=== PATIENT | female | born 1945 | race Caucasian/White ===

== ENCOUNTER 2017-05-02 10:50 | Day surgery (SDC) | payer MEDICARE ==
[2017-05-01 09:33] VITALS: BMI 26.9
[~2017-05-02 10:50] MED LIST: LACTATED RINGERS 1,000 ML IV SCH
[2017-05-02] MEDS ORDERED: LIDOCAINE 1% 20 ML VIAL (10MG/ML) FOR IV START INTRADERMA ONE (11:08)
[2017-05-02 11:09] VITALS: TEMP 98.6
[2017-05-02] MEDS ORDERED: PROPOFOL 10 MG/ML 20 ML VIAL IV ONE (11:15)
[2017-05-02] MEDS ORDERED: LIDOCAINE 1% INJ 10MG/ML (20 ML MDV) ONE (11:15)
--- NOTE | 2017-05-02 11:15 | P.GSHP ---
History of Present Illness H&P Date: 05/02/17 Chief Complaint: History of colon polyps This a 71-year-old female referred from Dr. Meghan Trimble. Patient rents today for colonoscopy. She's had a history of colon polyps. Past Medical History Past Medical History: GERD/Reflux, Hyperlipidemia, Hypertension, Seizure Disorder, Thyroid Disorder Additional Past Medical History / Comment(s): hx. colon polyps, >40 yrs. had seizures History of Any Multi-Drug Resistant Organisms: None Reported Past Surgical History: Cholecystectomy, Orthopedic Surgery Additional Past Surgical History / Comment(s): colonoscopy, hand surg. Past Anesthesia/Blood Transfusion Reactions: No Reported Reaction Smoking Status: Never smoker - Past Family History Mother Family Medical History: Cancer Medications and Allergies Home Medications Medication Instructions Recorded Confirmed Type Benazepril HCl 20 mg PO DAILY 02/24/14 05/02/17 History Cholecalciferol [Vitamin D3] 2,000 unit PO BID 02/24/14 05/02/17 History Cranberry Conc/C/Bacill Coag 1 each PO DAILY 02/24/14 05/02/17 History [Cranberry Tablet] Levothyroxine Sodium [Synthroid] 75 mcg PO DAILY 02/24/14 05/02/17 History PHENobarbital 60 mg PO HS 02/24/14 05/02/17 History Simvastatin [Zocor] 20 mg PO HS 02/24/14 05/02/17 History amLODIPine [Norvasc] 5 mg PO DAILY 02/24/14 05/02/17 History Famotidine [Pepcid] 20 mg PO BID #40 tablet 06/11/14 05/02/17 Rx Calcium Carbonate [Calcium] 600 mg PO BID 05/01/17 05/02/17 History Allergies Allergy/AdvReac Type Severity Reaction Status Date / Time acetaminophen Allergy Diarrhea Verified 05/02/17 11:04 [From Coricidin] amoxicillin [Amoxicillin] Allergy Unknown Verified 05/02/17 11:04 aspirin Allergy Unknown Verified 05/02/17 11:04 chlorpheniramine maleate Allergy Diarrhea Verified 05/02/17 11:04 [From Coricidin] codeine Allergy Unknown Verified 05/02/17 11:04 fexofenadine HCl Allergy Unknown Verified 05/02/17 11:04 [From Little] Hydantoins Allergy Unknown Verified 05/02/17 11:04 levofloxacin [From Levaquin] Allergy Unknown Verified 05/02/17 11:04 nitrofurantoin Allergy Rash/Hives Verified 05/02/17 11:04 [From Macrobid] phenylpropanolamine HCl Allergy Diarrhea Verified 05/02/17 11:04 [From Coricidin] phenytoin sodium Allergy Unknown Verified 05/02/17 11:04 [From Dilantin] prednisone Allergy Unknown Verified 05/02/17 11:04 propoxyphene HCl Allergy Unknown Verified 05/02/17 11:04 [From Darvon] sulfamethoxazole Allergy Rash/Hives Verified 05/02/17 11:04 [From Bactrim] trimethoprim Allergy Unknown Verified 05/02/17 11:04 narcotic Allergy Unknown Uncoded 05/02/17 11:04 Surgical - Exam Vital Signs Temp Pulse Resp BP Pulse Ox 98.6 F 79 16 195/71 99 05/02/17 11:08 05/02/17 11:08 05/02/17 11:08 05/02/17 11:08 05/02/17 11:08 - General well developed, no distress - Eyes PERRL - ENT normal pinna - Neck no masses - Respiratory normal expansion - Cardiovascular Rhythm: regular - Abdomen Abdomen: soft, non tender Assessment and Plan Assessment: History of colon polyps. We'll perform colonoscopy.
--- NOTE | 2017-05-02 11:30 | P.OP ---
Date of Procedure: 05/02/17 Preoperative Diagnosis: History of colon polyps Postoperative Diagnosis: Diverticulosis Internal hemorrhoids Procedure(s) Performed: Colonoscopy Anesthesia: MAC Surgeon: Gagandeep Blue Pathology: none sent Condition: stable Disposition: PACU Description of Procedure: Patient's placed on the endoscopy table lateral position. She received IV sedation. Digital rectal exam was performed which revealed a few external hemorrhage. The flexible colonoscope was then placed patient anus and passed throughout the entire colon. The ileocecal valve was visualized. Cecum, ascending and transverse colon appeared normal. In the descending; was mild diverticular changes. Scope was brought back the rectum and this appeared normal. There were no polyps seen in the entire colon. Scope was withdrawn for patient.
[2017-05-02 11:49] VITALS: BP 17/77; PULSE 55; RESP 15
== END 2017-05-02 12:05 | disposition home or self-care (01) ==
LOC: ORWHC2ENDO 10:50
PROVIDERS: ATTEND Surgery
DX: Z12.11 Encounter for screening for malignant neoplasm of colon (principal); K57.30 Diverticulosis of large intestine without perforation or abscess without bleeding; K64.4 Residual hemorrhoidal skin tags; Z86.010 Personal history of colon polyps; K21.9 Gastro-esophageal reflux disease without esophagitis; E78.5 Hyperlipidemia, unspecified; I10 Essential (primary) hypertension; G40.909 Epilepsy, unspecified, not intractable, without status epilepticus; E07.9 Disorder of thyroid, unspecified; Z79.899 Other long term (current) drug therapy; Z88.6 Allergy status to analgesic agent; Z88.1 Allergy status to other antibiotic agents; Z88.5 Allergy status to narcotic agent; Z88.0 Allergy status to penicillin; Z88.2 Allergy status to sulfonamides; Z88.8 Allergy status to other drugs, medicaments and biological substances
CPT/HCPCS: J2001; J2704; G0105

== ENCOUNTER 2017-11-19 16:22 | Inpatient (IN) | payer MEDICARE ==
[2017-11-19] MEDS ORDERED: SODIUM CHLORIDE 0.9% 500 ML IV ONE (16:49)
[2017-11-19 16:53] LABS: Basophils % (A) 1 %; Eosinophils # (A) 0.1 k/uL (0-0.7); Eosinophils % (A) 2 %; HCT 42.9 % (34.0-46.0); HGB 14.3 gm/dL (11.4-16.0); Lymphocytes # (A) 1.2 k/uL (1.0-4.8); Lymphocytes % (A) 27 %; MCH 31.1 pg (25.0-35.0); MCHC 33.4 g/dL (31.0-37.0); Mean Platelet Volume 7.1; Monocytes # (A) 0.4 k/uL (0-1.0); Monocytes % (A) 9 %; Neutrophils # (A) 2.6 k/uL (1.3-7.7); Neutrophils % (A) 57 %; Platelet Count 182 k/uL (150-450); RBC 4.61 m/uL (3.80-5.40); RDW 13.1 % (11.5-15.5); WBC 4.5 k/uL (3.8-10.6)
--- NOTE | 2017-11-19 16:54 | ED ---
General Adult HPI - General Chief complaint: Chest Pain Stated complaint: Chest Discomfort Time Seen by Provider: 11/19/17 16:24 Source: patient, EMS, RN notes reviewed, old records reviewed Mode of arrival: EMS Limitations: no limitations - History of Present Illness Initial comments: 72-year-old female presenting for evaluation of chest pain. Pain began at rest approximately 2-1/2 hours prior to arrival. She described it as right sided upper chest pain. It was dull aching sensation as if she had a previous stroke in her throat. She denied any food or medication ingestion. She also states she had a pain that went from her right chest into her right neck towards her ear. There was also dull and aching. No back pain. No radiating pain to her shoulders. She has past medical history of hypertension, no smoking history. No history of coronary artery disease or heart issues. Denies any preceding symptoms. No palpitations. No cough or fever. Patient is pain-free at the time my evaluation. No abdominal pain. - Related Data Home Medications Medication Instructions Recorded Confirmed Benazepril HCl 20 mg PO DAILY 02/24/14 11/19/17 Cholecalciferol [Vitamin D3] 2,000 unit PO BID 02/24/14 11/19/17 Cranberry Conc/C/Bacill Coag 1 tab PO TID 02/24/14 11/19/17 [Cranberry Tablet] Levothyroxine Sodium [Synthroid] 75 mcg PO DAILY 02/24/14 11/19/17 PHENobarbital 60 mg PO HS 02/24/14 11/19/17 Simvastatin [Zocor] 20 mg PO HS 02/24/14 11/19/17 amLODIPine [Norvasc] 5 mg PO DAILY 02/24/14 11/19/17 Calcium Carbonate [Calcium] 600 mg PO BID 05/01/17 11/19/17 Previous Rx's Medication Instructions Recorded Famotidine [Pepcid] 20 mg PO BID #40 tablet 06/11/14 Allergies Allergy/AdvReac Type Severity Reaction Status Date / Time acetaminophen Allergy Diarrhea Verified 11/19/17 16:46 [From Coricidin] amoxicillin [Amoxicillin] Allergy Unknown Verified 11/19/17 16:46 aspirin Allergy Unknown Verified 11/19/17 16:46 chlorpheniramine maleate Allergy Diarrhea Verified 11/19/17 16:46 [From Coricidin] codeine Allergy Unknown Verified 11/19/17 16:46 fexofenadine HCl Allergy Nausea & Verified 11/19/17 16:46 [From Little] Vomiting & Diarrhea Hydantoins Allergy Unknown Verified 11/19/17 16:46 levofloxacin [From Levaquin] Allergy Unknown Verified 11/19/17 16:46 nitrofurantoin Allergy Rash/Hives Verified 11/19/17 16:46 [From Macrobid] phenylpropanolamine HCl Allergy Diarrhea Verified 11/19/17 16:46 [From Coricidin] phenytoin sodium Allergy Rash/Hives Verified 11/19/17 16:46 [From Dilantin] prednisone Allergy Unknown Verified 11/19/17 16:46 propoxyphene HCl Allergy Unknown Verified 11/19/17 16:46 [From Darvon] sulfamethoxazole Allergy Rash/Hives Verified 11/19/17 16:46 [From Bactrim] trimethoprim Allergy Unknown Verified 11/19/17 16:46 narcotic Allergy Unknown Uncoded 11/19/17 16:31 Review of Systems ROS Statement: Those systems with pertinent positive or pertinent negative responses have been documented in the HPI. ROS Other: All systems not noted in ROS Statement are negative. Past Medical History Past Medical History: GERD/Reflux, Hyperlipidemia, Hypertension, Seizure Disorder, Thyroid Disorder Additional Past Medical History / Comment(s): hx. colon polyps, >40 yrs. had seizures History of Any Multi-Drug Resistant Organisms: None Reported Past Surgical History: Cholecystectomy, Orthopedic Surgery Additional Past Surgical History / Comment(s): colonoscopy, hand surg. Past Anesthesia/Blood Transfusion Reactions: No Reported Reaction Past Psychological History: Anxiety, Depression Smoking Status: Never smoker Past Alcohol Use History: None Reported Past Drug Use History: None Reported - Past Family History Mother Family Medical History: Cancer General Exam Limitations: no limitations General appearance: alert, in no apparent distress Head exam: Present: atraumatic, normocephalic Eye exam: Present: normal appearance, PERRL ENT exam: Present: normal exam Neck exam: Present: normal inspection. Absent: tenderness, meningismus Respiratory exam: Present: normal lung sounds bilaterally. Absent: respiratory distress, wheezes Cardiovascular Exam: Present: regular rate, normal rhythm GI/Abdominal exam: Present: soft. Absent: distended, tenderness Extremities exam: Present: normal inspection, full ROM, other (Bilateral radial pulses are 2+ and symmetric). Absent: pedal edema Back exam: Present: normal inspection. Absent: full ROM, tenderness Neurological exam: Present: alert, oriented X3, CN II-XII intact. Absent: motor sensory deficit Psychiatric exam: Present: normal affect, normal mood Skin exam: Present: warm, dry, intact. Absent: cyanosis, diaphoretic Course Vital Signs 11/19/17 11/19/17 11/19/17 16:27 17:08 17:44 Temperature 98.3 F Pulse Rate 64 61 67 Respiratory 18 18 18 Rate Blood Pressure 198/85 205/89 197/84 O2 Sat by Pulse 96 98 Oximetry 11/19/17 18:14 Temperature Pulse Rate Respiratory Rate Blood Pressure 180/77 O2 Sat by Pulse Oximetry EKG Findings - EKG Comments: EKG Findings:: EKG normal sinus rhythm, rate of 65, SD interval 180, QRS duration 80, QTc 440, no ST segment elevation or depression. Medical Decision Making - Medical Decision Making 72-year-old female presenting with chief complaint chest pain. Initial evaluation, patient is quite hypertensive, she did report radiation into her neck. CT angiography is obtained, this is negative for aneurysm or dissection. There is a adnexal lesion measuring 2.5 cm. This will require outpatient follow-up. CBC CMP are unremarkable. Troponin is negative. CT angiography does show calcification throughout the aortic branch vessels, normal occlusion. Patient will be kept in observation for serial cardiac enzymes and cardiology consultation. - Lab Data Result diagrams: 11/19/17 16:37 11/19/17 16:37 Lab Results 11/19/17 11/19/17 11/19/17 Range/Units 16:37 16:37 16:37 WBC 4.5 (3.8-10.6) k/uL RBC 4.61 (3.80-5.40) m/uL Hgb 14.3 (11.4-16.0) gm/dL Hct 42.9 (34.0-46.0) % MCV 93.0 (80.0-100.0) fL MCH 31.1 (25.0-35.0) pg MCHC 33.4 (31.0-37.0) g/dL RDW 13.1 (11.5-15.5) % Plt Count 182 (150-450) k/uL Neutrophils % 57 % Lymphocytes % 27 % Monocytes % 9 % Eosinophils % 2 % Basophils % 1 % Neutrophils # 2.6 (1.3-7.7) k/uL Lymphocytes # 1.2 (1.0-4.8) k/uL Monocytes # 0.4 (0-1.0) k/uL Eosinophils # 0.1 (0-0.7) k/uL Basophils # 0.0 (0-0.2) k/uL PT (9.0-12.0) sec INR (<1.2) APTT (22.0-30.0) sec Sodium 141 (137-145) mmol/L Potassium 4.4 (3.5-5.1) mmol/L Chloride 100 (98-107) mmol/L Carbon Dioxide 26 (22-30) mmol/L Anion Gap 15 mmol/L BUN 21 H (7-17) mg/dL Creatinine 0.70 (0.52-1.04) mg/dL Est GFR (CKD-EPI)AfAm >90 (>60 ml/min/1.73 sqM) Est GFR (CKD-EPI)NonAf 87 (>60 ml/min/1.73 sqM) Glucose 94 (74-99) mg/dL Calcium 9.4 (8.4-10.2) mg/dL Magnesium 1.8 (1.6-2.3) mg/dL Total Bilirubin 0.3 (0.2-1.3) mg/dL AST 24 (14-36) U/L ALT 31 (9-52) U/L Alkaline Phosphatase 98 (38-126) U/L Total Creatine Kinase 38 (30-135) U/L CK-MB (CK-2) 0.4 (0.0-2.4) ng/mL CK-MB (CK-2) Rel Index 1.1 Troponin I <0.012 (0.000-0.034) ng/mL NT-Pro-B Natriuret Pep pg/mL Total Protein 7.6 (6.3-8.2) g/dL Albumin 4.5 (3.5-5.0) g/dL 11/19/17 11/19/17 Range/Units 16:37 16:37 WBC (3.8-10.6) k/uL RBC (3.80-5.40) m/uL Hgb (11.4-16.0) gm/dL Hct (34.0-46.0) % MCV (80.0-100.0) fL MCH (25.0-35.0) pg MCHC (31.0-37.0) g/dL RDW (11.5-15.5) % Plt Count (150-450) k/uL Neutrophils % % Lymphocytes % % Monocytes % % Eosinophils % % Basophils % % Neutrophils # (1.3-7.7) k/uL Lymphocytes # (1.0-4.8) k/uL Monocytes # (0-1.0) k/uL Eosinophils # (0-0.7) k/uL Basophils # (0-0.2) k/uL PT 10.0 (9.0-12.0) sec INR 1.0 (<1.2) APTT 21.9 L (22.0-30.0) sec Sodium (137-145) mmol/L Potassium (3.5-5.1) mmol/L Chloride (98-107) mmol/L Carbon Dioxide (22-30) mmol/L Anion Gap mmol/L BUN (7-17) mg/dL Creatinine (0.52-1.04) mg/dL Est GFR (CKD-EPI)AfAm (>60 ml/min/1.73 sqM) Est GFR (CKD-EPI)NonAf (>60 ml/min/1.73 sqM) Glucose (74-99) mg/dL Calcium (8.4-10.2) mg/dL Magnesium (1.6-2.3) mg/dL Total Bilirubin (0.2-1.3) mg/dL AST (14-36) U/L ALT (9-52) U/L Alkaline Phosphatase (38-126) U/L Total Creatine Kinase (30-135) U/L CK-MB (CK-2) (0.0-2.4) ng/mL CK-MB (CK-2) Rel Index Troponin I (0.000-0.034) ng/mL NT-Pro-B Natriuret Pep 409 pg/mL Total Protein (6.3-8.2) g/dL Albumin (3.5-5.0) g/dL Disposition Clinical Impression: Chest pain Disposition: ADMITTED IP TO THIS HOSP Condition: Stable Is patient prescribed a controlled substance at d/c from ED?: No Referrals: Nish Trimble MD [Primary Care Provider] - 1-2 days Decision to Admit Reason: Admit from EC Decision Date: 11/19/17 Decision Time: 18:32
[2017-11-19 16:58] LABS: ALT 31 U/L (9-52); AST 24 U/L (14-36); Albumin 4.5 g/dL (3.5-5.0); Alkaline Phosphatase 98 U/L (38-126); Anion Gap 15 mmol/L; Blood Urea Nitrogen 21 mg/dL (7-17); Calcium 9.4 mg/dL (8.4-10.2); Carbon Dioxide 26 mmol/L (22-30); Chloride 100 mmol/L (98-107); Glucose 94 mg/dL (74-99); Magnesium 1.8 mg/dL (1.6-2.3); Potassium 4.4 mmol/L (3.5-5.1); Sodium 141 mmol/L (137-145); Total Bilirubin 0.3 mg/dL (0.2-1.3); Total Protein 7.6 g/dL (6.3-8.2)
--- NOTE | 2017-11-19 17:03 | XR ---
EXAMINATION TYPE: XR chest 2V DATE OF EXAM: 11/19/2017 COMPARISON: 06/11/2014 HISTORY: Chest pain. Dysphagia. Globus sensation. TECHNIQUE: Frontal and lateral views of the chest are obtained. FINDINGS: There is no focal air space opacity, pleural effusion, or pneumothorax seen. The cardiac silhouette size is within normal limits. The osseous structures are intact. Mild multilevel degener ative changes of the thoracic spine are seen. There are mild mid thoracic compression deformity is id entified that is asymmetric indeterminant. Correlate with point tenderness. IMPRESSION: 1. No acute cardiopulmonary process. No radiopaque foreign body visualized. 2. Midthoracic age indeterminant very mild compression deformity. No prior lateral image for comparis on. Correlate with point tenderness.
[2017-11-19 17:09] LABS: Creatine Kinase 38 U/L (30-135)
[2017-11-19 17:11] LABS: Partial Thromboplastin Time 21.9 sec (22.0-30.0)
[2017-11-19] MEDS ORDERED: hydrALAZINE HCL 20 MG/ML 1 ML VIAL IVP STA ×2 (17:15→18:50)
[2017-11-19 17:22] LABS: Creatine Kinase MB 0.4 ng/mL (0.0-2.4); Troponin I <0.012 ng/mL (0.000-0.034)
--- NOTE | 2017-11-19 18:02 | CT ---
EXAMINATION TYPE: CT angio thoracic/abd aorta DATE OF EXAM: 11/19/2017 COMPARISON: NONE HISTORY: Right sided chest pain with nausea CT DLP: 1002.2 mGycm. Automated Exposure Control for Dose Reduction was Utilized. CONTRAST: CT scan of the thorax, abdomen and pelvis is performed with IV Contrast, patient injected with 100 mL of Isovue 370. 3-D reformats were performed of the vasculature on a separate workstation. FINDINGS: LUNGS: The lungs are grossly clear, there is no concerning parenchymal mass or nodule identified. Min imal bibasilar subsegmental dependent atelectasis is seen. There is no pleural effusion or pneumotho rax seen. The tracheobronchial tree is patent. MEDIASTINUM: On the unenhanced images there is no evidence of intramural hematoma. There are no great er than 1 cm hilar or mediastinal lymph nodes. No evidence of thoracic dissection or central pulmona ry embolus is seen. No thoracic aortic aneurysm. Conventional 3 vessel branch pattern of the aortic a rch is noted. No pericardial effusion is seen. OTHER: No additional significant abnormality is seen. LIVER/GB: No significant abnormality is appreciated. PANCREAS: Diffuse pancreatic atrophy is present. No ductal dilatation.. SPLEEN: No significant abnormality is seen. ADRENALS: No significant abnormality is seen. KIDNEYS: No hydronephrosis. Kidneys enhance symmetrically. BOWEL: There is a small hiatal hernia present. Numerous sigmoid diverticula are present without peric olonic fat stranding. GENITAL ORGANS: 3.5 cm right adnexal lesion is noted. Smaller 1.2 cm left adnexal lesion is seen. Danita omkar is atrophied. LYMPH NODES: No greater than 1cm abdominal or pelvic lymph nodes are appreciated. OSSEOUS STRUCTURES: Multilevel degenerative changes of the spine are moderate. OTHER: Extensive calcific atheromatous changes are seen of the abdominal aorta and its branches. Ther e is ostial stenosis of the celiac and SMA branches without poststenotic dilatation. Visualized branc h vessels appear grossly patent. Abdominal aorta is of normal course and caliber. IMPRESSION: 1. No evidence of dissection or aneurysm of the thoracic or abdominal aorta. 2. 3.5 cm right cystic adnexal lesion, abnormal in a postmenopausal female. Further evaluation with n onemergent ultrasound is recommended for further classification. 3. 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
[2017-11-19] MEDS ORDERED: NALOXONE 0.4 MG/ML 1 ML VIAL IV PRN (18:33)
[2017-11-19] MEDS ORDERED: ONDANSETRON 4 MG/2 ML VIAL IVP PRN (18:33)
[2017-11-19] MEDS ORDERED: amLODIPine 5 MG TAB PO STA (18:51)
[2017-11-19] MEDS: ATORVASTATIN 10 MG TAB PO SCH (21:36)
[2017-11-19] MEDS: FAMOTIDINE 20 MG TAB PO SCH (21:36)
[2017-11-19] MEDS: ACETAMINOPHEN TAB 325 MG TAB PO PRN (21:36)
[2017-11-19] MEDS: PHENobarbital 64.8 MG TAB PO SCH (22:48)
[2017-11-19] MEDS ORDERED: CALCIUM CARBONATE 500 MG CHEWABLE PO PRN (22:50)
[2017-11-19 23:04] LABS: Creatine Kinase MB 0.5 ng/mL (0.0-2.4); Troponin I 0.032 ng/mL (0.000-0.034)
[2017-11-20 05:15] LABS: Creatine Kinase MB 0.5 ng/mL (0.0-2.4); Troponin I 0.02 ng/mL (0.000-0.034)
--- NOTE | 2017-11-20 08:23 | P.HPIM ---
History of Present Illness H&P Date: 11/20/17 Chief Complaint: Chest pain This is a history of physical 72-year-old white female who is complaining of significant right-sided chest pressure. She states yesterday she was recently broke without doing anything overtly strenuous had significant right-sided chest pain. No nausea no diaphoresis. No significant radiation of the pain was quite intense. Did not resolve with almost an hour. She ended up seeing the nurse advisor at her living quarters and she advised appropriate evaluation. She is now here for appropriate chest pressure. Minimal risk factors stated. The patient is nonsmoker. Review of Systems Constitutional: Denies chills, Denies fever Eyes: denies blurred vision, denies pain Ears, nose, mouth and throat: Denies headache, Denies sore throat Cardiovascular: Reports chest pain, Denies leg edema, Denies lightheadedness, Denies shortness of breath Respiratory: Denies cough Gastrointestinal: Denies abdominal pain, Denies diarrhea, Denies nausea, Denies vomiting Genitourinary: Denies dysuria, Denies hematuria Past Medical History Past Medical History: GERD/Reflux, Hyperlipidemia, Hypertension, Seizure Disorder, Thyroid Disorder Additional Past Medical History / Comment(s): hx. colon polyps, >40 yrs. had seizures History of Any Multi-Drug Resistant Organisms: None Reported Past Surgical History: Cholecystectomy, Orthopedic Surgery Additional Past Surgical History / Comment(s): colonoscopy, hand surg. Past Anesthesia/Blood Transfusion Reactions: No Reported Reaction Past Psychological History: Anxiety, Depression Smoking Status: Never smoker Past Alcohol Use History: None Reported Past Drug Use History: None Reported - Past Family History Mother Family Medical History: Cancer Father History Unknown: Yes Sister(s) Family Medical History: Cancer Brother(s) History Unknown: Yes Son(s) Family Medical History: No Reported History Daughter(s) Additional Family Medical History / Comment(s): went without oxygen at Medications and Allergies Home Medications Medication Instructions Recorded Confirmed Type Benazepril HCl 20 mg PO DAILY 02/24/14 11/19/17 History Cholecalciferol [Vitamin D3] 2,000 unit PO BID 02/24/14 11/19/17 History Cranberry Conc/C/Bacill Coag 2 tab PO TID 02/24/14 11/19/17 History [Cranberry Tablet] Levothyroxine Sodium [Synthroid] 75 mcg PO DAILY 02/24/14 11/19/17 History PHENobarbital 60 mg PO HS 02/24/14 11/19/17 History Simvastatin [Zocor] 20 mg PO HS 02/24/14 11/19/17 History amLODIPine [Norvasc] 5 mg PO DAILY 02/24/14 11/19/17 History Famotidine [Pepcid] 20 mg PO BID #40 tablet 06/11/14 11/19/17 Rx Calcium Carbonate [Calcium] 600 mg PO BID 05/01/17 11/19/17 History Allergies Allergy/AdvReac Type Severity Reaction Status Date / Time acetaminophen Allergy Diarrhea Verified 11/19/17 21:11 [From Coricidin] amoxicillin [Amoxicillin] Allergy Unknown Verified 11/19/17 21:11 aspirin Allergy Unknown Verified 11/19/17 21:11 chlorpheniramine maleate Allergy Diarrhea Verified 11/19/17 21:11 [From Coricidin] codeine Allergy Unknown Verified 11/19/17 21:11 fexofenadine HCl Allergy Nausea & Verified 11/19/17 21:11 [From Little] Vomiting & Diarrhea Hydantoins Allergy Unknown Verified 11/19/17 21:11 levofloxacin [From Levaquin] Allergy Unknown Verified 11/19/17 21:11 nitrofurantoin Allergy Rash/Hives Verified 11/19/17 21:11 [From Macrobid] phenylpropanolamine HCl Allergy Diarrhea Verified 11/19/17 21:11 [From Coricidin] phenytoin sodium Allergy Rash/Hives Verified 11/19/17 21:11 [From Dilantin] prednisone Allergy Unknown Verified 11/19/17 21:11 propoxyphene HCl Allergy Unknown Verified 11/19/17 21:11 [From Darvon] sulfamethoxazole Allergy Rash/Hives Verified 11/19/17 21:11 [From Bactrim] trimethoprim Allergy Unknown Verified 11/19/17 21:11 narcotic Allergy Unknown Uncoded 11/19/17 21:11 Physical Exam Vitals: Vital Signs Temp Pulse Pulse Resp BP BP Pulse Ox 11/20/17 07:25 98.3 F 71 17 146/65 95 11/20/17 04:00 97.9 F 68 16 137/63 96 11/20/17 03:55 18 11/19/17 23:44 97.8 F 76 18 148/56 97 11/19/17 23:10 16 11/19/17 20:10 98.5 F 76 16 157/72 100 11/19/17 20:00 16 11/19/17 19:39 79 17 145/65 100 11/19/17 18:59 71 18 198/84 99 11/19/17 18:55 69 18 194/79 98 11/19/17 18:14 180/77 11/19/17 17:44 67 18 197/84 98 11/19/17 17:08 61 18 205/89 11/19/17 16:27 98.3 F 64 18 198/85 96 Intake and Output 11/19/17 11/20/17 11/20/17 22:59 06:59 14:59 Other: Voiding Method Toilet Toilet # Voids 1 Weight 71.5 kg - Constitutional General appearance: no acute distress - EENT Eyes: EOMI - Neck Neck: no lymphadenopathy - Respiratory Respiratory: bilateral: CTA - Cardiovascular Rhythm: regular Heart sounds: normal: S1, S2 Abnormal Heart Sounds: no S3 Gallop - Gastrointestinal General gastrointestinal: soft, no tenderness - Psychiatric Psychiatric: A&O x's 3 Results CBC & Chem 7: 11/19/17 16:37 11/19/17 16:37 Labs: Abnormal Lab Results - Last 24 Hours (Table) 11/19/17 11/19/17 Range/Units 16:37 16:37 APTT 21.9 L (22.0-30.0) sec BUN 21 H (7-17) mg/dL Thrombosis Risk Factor Assmnt - Choose All That Apply Any of the Below Risk Factors Present?: Yes Each Factor Represents 1 point: Obesity (BMI >25) Other Risk Factors: Yes Each Risk Factor Represents 2 Points: Age 61-74 years Other congenital or acquired thrombophilia - If yes, enter type in comment: No Thrombosis Risk Factor Assessment Total Risk Factor Score: 3 Thrombosis Risk Factor Assessment Level: Moderate Risk Assessment and Plan (1) Chest pain Current Visit: Yes Status: Acute Code(s): R07.9 - CHEST PAIN, UNSPECIFIED SNOMED Code(s): 48207030 Plan: Rule out myocardial infarction. Element of stress testing to be entertained. Reconcile home medications. See orders otherwise. Anticipate discharge in next 24 hours if testing is stable. Time with Patient: Greater than 30
[2017-11-20] MEDS ORDERED: amLODIPine 5 MG TAB PO SCH (09:00)
[2017-11-20] MEDS ORDERED: AMINOPHYLLINE 500 MG/20 ML VIAL IV PRN (09:01)
[2017-11-20] MEDS ORDERED: REGADENOSON 0.4 MG/5 ML SYRINGE IV ONE (09:01)
--- NOTE | 2017-11-20 09:44 | ECHOF ---
Referral Reason: MEASUREMENTS -------- HEIGHT: 160.0 cm WEIGHT: 71.2 kg BP: IVSd: 0.8 cm (0.6 - 1.1) LVIDd: 4.3 cm (3.9 - 5.3) LVPWd: 1.0 cm (0.6 - 1.1) IVSs: 1.7 cm LVIDs: 1.8 cm LVPWs: 1.6 cm LAESV Index (A-L): 26.88 ml/m Ao Diam: 2.5 cm (2.0 - 3.7) AV Cusp: 1.9 cm (1.5 - 2.6) LA Diam: 3.8 cm (2.7 - 3.8) MV EXCURSION: 8.460 mm (> 18.000) MV EF SLOPE: 71 mm/s (70 - 150) EPSS: 0.8 cm MV E Daniel: 0.76 m/s MV DecT: 244 ms MV A Daniel: 0.71 m/s MV E/A Ratio: 1.07 RAP: 5.00 mmHg RVSP: 31.53 mmHg FINDINGS -------- Sinus rhythm. This was a technically good study. The left ventricular size is normal. Left ventricular wall thickness is normal. Overall left vent ricular systolic function is normal with, an EF between 55 - 60 %. The right ventricle is normal in size and function. The left atrium is normal in size. The right atrium is normal in size. The aortic valve is trileaflet, and appears structurally normal. No aortic stenosis or regurgitation. Mild mitral regurgitation is present. Mild tricuspid regurgitation present. The right ventricular systolic pressure, as measured by Doppl er, is 31.53mmHg. Pulmonic valve appears structurally normal. The aortic root size is normal. Normal inferior vena cava with normal inspiratory collapse consistent with estimated right atrial pre ssure of 5 mmHg. There is a trivial pericardial effusion present. CONCLUSIONS -------- 1. Sinus rhythm. 2. This was a technically good study. 3. The left ventricular size is normal. 4. Left ventricular wall thickness is normal. 5. Overall left ventricular systolic function is normal with, an EF between 55 - 60 %. 6. The right ventricle is normal in size and function. 7. The left atrium is normal in size. 8. The right atrium is normal in size. 9. The aortic valve is trileaflet, and appears structurally normal. No aortic stenosis or regurgitati on. 10. Mild mitral regurgitation is present. 11. Mild tricuspid regurgitation present. 12. The right ventricular systolic pressure, as measured by Doppler, is 31.53mmHg. 13. Pulmonic valve appears structurally normal. 14. The aortic root size is normal. 15. Normal inferior vena cava with normal inspiratory collapse consistent with estimated right atrial pressure of 5 mmHg. 16. There is a trivial pericardial effusion present. CONTROL ELECTRICIAN: Marion Gary RDCS
--- NOTE | 2017-11-20 11:52 | P.CRDCN ---
History of Present Illness History of present illness: This is a pleasant 72-year-old female past medical history significant for hypertension, dyslipidemia, hypothyroidism, gastroesophageal reflux disease and history of seizures. She denies history of coronary artery disease. We have been asked to see her in consultation for complaints of chest pain. She states yesterday while she was sitting down reading a book she developed a heavy sensation in the right anterior chest wall radiating up into the right neck and right ear. Her right arm also felt numb and tingly. The symptoms persisted for approximately 2-1/2 hours prior to coming to the hospital. When she got to the hospital she was continuing to have a dull ache in the chest and it felt associated swallowed a pill that would not echo down she had a sensation of throat fullness. Ultimately the pain subsided on its own with no specific alleviating or aggravating factors. She denies associated shortness of breath, palpitations, dizziness, nausea, vomiting or diaphoresis. She has had no further recurrences of chest pain since admission. Blood pressure on arrival 198/85, 205/89. She was given home medications and IV hydralazine. EKG reveals sinus mechanism with no acute ST or T-wave abnormalities. Telemetry tracings have been unremarkable. Chest x-ray is negative for an acute cardiopulmonary process with a midthoracic compression deformity noted. CT of thorax negative for any acute process. Laboratory data reviewed, hemoglobin 14.3, platelets 182, sodium 141, potassium 4.4, creatinine 0.7, cardiac enzymes negative 3, proBNP 409. Current cardiac medications include amlodipine 5 mg daily, simvastatin 20 mg daily, enalapril 20 mg daily. Review of Systems At the time of my exam: CONSTITUTIONAL: Denies fever. Denies chills. EYES: Denies blurred vision. Denies vision changes. Denies eye pain. EARS, NOSE, MOUTH & THROAT: Denies headache. Denies sore throat. Denies ear pain. CARDIOVASCULAR: Denies chest pain. Denies shortness of breath. Denies orthopnea. Denies PND. Denies palpitations. RESPIRATORY: Denies cough. GASTROINTESTINAL: Denies abdominal pain. Denies diarrhea. Denies constipation. Denies nausea. Denies vomiting. MUSCULOSKELETAL: Denies myalgias. INTEGUMENTARY: Denies pruitis. Denies rash. NEUROLOGIC: Denies numbness. Denies tingling. Denies weakness. PSYCHIATRIC: Denies anxiety. Denies depression. ENDOCRINE: Denies fatigue. Denies weight change. Denies polydipsia. Denies polyurina. GENITOURINARY: Denies burning, hematuria or urgency with micturation. HEMATOLOGIC: Denies history of anemia. Denies bleeding. Past Medical History Past Medical History: GERD/Reflux, Hyperlipidemia, Hypertension, Seizure Disorder, Thyroid Disorder Additional Past Medical History / Comment(s): hx. colon polyps, >40 yrs. had seizures History of Any Multi-Drug Resistant Organisms: None Reported Past Surgical History: Cholecystectomy, Orthopedic Surgery Additional Past Surgical History / Comment(s): colonoscopy, hand surg. Past Anesthesia/Blood Transfusion Reactions: No Reported Reaction Past Psychological History: Anxiety, Depression Smoking Status: Never smoker Past Alcohol Use History: None Reported Past Drug Use History: None Reported - Past Family History Mother Family Medical History: Cancer Father History Unknown: Yes Sister(s) Family Medical History: Cancer Brother(s) History Unknown: Yes Son(s) Family Medical History: No Reported History Daughter(s) Additional Family Medical History / Comment(s): went without oxygen at Medications and Allergies Home Medications Medication Instructions Recorded Confirmed Type Benazepril HCl 20 mg PO DAILY 02/24/14 11/19/17 History Cholecalciferol [Vitamin D3] 2,000 unit PO BID 02/24/14 11/19/17 History Cranberry Conc/C/Bacill Coag 2 tab PO TID 02/24/14 11/19/17 History [Cranberry Tablet] Levothyroxine Sodium [Synthroid] 75 mcg PO DAILY 02/24/14 11/19/17 History PHENobarbital 60 mg PO HS 02/24/14 11/19/17 History Simvastatin [Zocor] 20 mg PO HS 02/24/14 11/19/17 History amLODIPine [Norvasc] 5 mg PO DAILY 02/24/14 11/19/17 History Famotidine [Pepcid] 20 mg PO BID #40 tablet 06/11/14 11/19/17 Rx Calcium Carbonate [Calcium] 600 mg PO BID 05/01/17 11/19/17 History Allergies Allergy/AdvReac Type Severity Reaction Status Date / Time acetaminophen Allergy Diarrhea Verified 11/19/17 21:11 [From Coricidin] amoxicillin [Amoxicillin] Allergy Unknown Verified 11/19/17 21:11 aspirin Allergy Unknown Verified 11/19/17 21:11 chlorpheniramine maleate Allergy Diarrhea Verified 11/19/17 21:11 [From Coricidin] codeine Allergy Unknown Verified 11/19/17 21:11 fexofenadine HCl Allergy Nausea & Verified 11/19/17 21:11 [From Little] Vomiting & Diarrhea Hydantoins Allergy Unknown Verified 11/19/17 21:11 levofloxacin [From Levaquin] Allergy Unknown Verified 11/19/17 21:11 nitrofurantoin Allergy Rash/Hives Verified 11/19/17 21:11 [From Macrobid] phenylpropanolamine HCl Allergy Diarrhea Verified 11/19/17 21:11 [From Coricidin] phenytoin sodium Allergy Rash/Hives Verified 11/19/17 21:11 [From Dilantin] prednisone Allergy Unknown Verified 11/19/17 21:11 propoxyphene HCl Allergy Unknown Verified 11/19/17 21:11 [From Darvon] sulfamethoxazole Allergy Rash/Hives Verified 11/19/17 21:11 [From Bactrim] trimethoprim Allergy Unknown Verified 11/19/17 21:11 narcotic Allergy Unknown Uncoded 11/19/17 21:11 Physical Exam Vitals: Vital Signs Temp Pulse Pulse Resp BP BP Pulse Ox 11/20/17 07:25 98.3 F 71 17 146/65 95 11/20/17 04:00 97.9 F 68 16 137/63 96 11/20/17 03:55 18 11/19/17 23:44 97.8 F 76 18 148/56 97 11/19/17 23:10 16 11/19/17 20:10 98.5 F 76 16 157/72 100 11/19/17 20:00 16 11/19/17 19:39 79 17 145/65 100 11/19/17 18:59 71 18 198/84 99 11/19/17 18:55 69 18 194/79 98 11/19/17 18:14 180/77 11/19/17 17:44 67 18 197/84 98 11/19/17 17:08 61 18 205/89 11/19/17 16:27 98.3 F 64 18 198/85 96 Intake and Output 11/19/17 11/20/17 11/20/17 22:59 06:59 14:59 Other: Voiding Method Toilet Toilet # Voids 1 Weight 71.5 kg Blood pressure 137/63 heart rate 68 afebrile maintaining oxygen saturation on room air GENERAL: This is a 72-year-old female in no apparent distress at the time of my examination. HEENT: Head is atraumatic, normocephalic. Pupils are equal, round. Sclerae anicteric. Conjunctivae are clear. Mucous membranes of the mouth are moist. Neck is supple. There is no jugular venous distention. No carotid bruit is heard. LUNGS: Clear to auscultation no wheezes, rales or rhonchi. No chest wall tenderness is noted on palpation or with deep breathing. HEART: Regular rate and rhythm with faint systolic murmur at the base, no rubs or gallops. S1 and S2 heard. ABDOMEN: Soft, nontender. Bowel sounds are heard. No organomegaly noted. EXTREMITIES: No evidence of peripheral edema and no calf tenderness noted. VASCULAR: Radial and dorsalis pedis pulses palpated, no evidence of clubbing. NEUROLOGIC: Patient is awake, alert and oriented x3. Results 11/19/17 16:37 11/19/17 16:37 Cardiac Enzymes 11/19/17 11/19/17 11/19/17 Range/Units 16:37 16:37 22:21 AST 24 (14-36) U/L CK-MB (CK-2) 0.4 0.5 (0.0-2.4) ng/mL Troponin I <0.012 0.032 (0.000-0.034) ng/mL 11/20/17 Range/Units 04:33 AST (14-36) U/L CK-MB (CK-2) 0.5 (0.0-2.4) ng/mL Troponin I 0.020 (0.000-0.034) ng/mL Coagulation 11/19/17 Range/Units 16:37 PT 10.0 (9.0-12.0) sec APTT 21.9 L (22.0-30.0) sec CBC 11/19/17 Range/Units 16:37 WBC 4.5 (3.8-10.6) k/uL RBC 4.61 (3.80-5.40) m/uL Hgb 14.3 (11.4-16.0) gm/dL Hct 42.9 (34.0-46.0) % Plt Count 182 (150-450) k/uL Comprehensive Metabolic Panel 11/19/17 Range/Units 16:37 Sodium 141 (137-145) mmol/L Potassium 4.4 (3.5-5.1) mmol/L Chloride 100 (98-107) mmol/L Carbon Dioxide 26 (22-30) mmol/L BUN 21 H (7-17) mg/dL Creatinine 0.70 (0.52-1.04) mg/dL Glucose 94 (74-99) mg/dL Calcium 9.4 (8.4-10.2) mg/dL AST 24 (14-36) U/L ALT 31 (9-52) U/L Alkaline Phosphatase 98 (38-126) U/L Total Protein 7.6 (6.3-8.2) g/dL Albumin 4.5 (3.5-5.0) g/dL Current Medications Generic Name Dose Route Start Last Admin Trade Name Freq PRN Reason Stop Dose Admin Acetaminophen 650 mg 11/19/17 21:08 11/19/17 21:36 Tylenol Tab PO 650 mg Q4HR PRN Administration Fever and/ or Pain Amlodipine Besylate 10 mg 11/20/17 09:00 Norvasc PO DAILY [facility] Atorvastatin Calcium 10 mg 11/19/17 21:00 11/19/17 21:36 Lipitor PO Not Given HS [facility] Calcium Carbonate/Glycine 1,000 mg 11/19/17 22:50 11/19/17 23:24 Tums PO 1,000 mg QID PRN Administration Heartburn Famotidine 20 mg 11/19/17 21:00 11/19/17 21:36 Pepcid PO 20 mg BID [facility] Administration Levothyroxine Sodium 75 mcg 11/20/17 06:30 Synthroid PO DAILY@0630 [facility] Lisinopril 20 mg 11/20/17 09:00 Zestril PO DAILY [facility] Naloxone HCl 0.2 mg 11/19/17 18:33 Narcan IV Q2M PRN Opioid Reversal Ondansetron HCl 4 mg 11/19/17 18:33 Zofran IVP Q8HR PRN Nausea And Vomiting Phenobarbital 64.8 mg 11/19/17 21:00 11/19/17 22:48 Luminal PO 64.8 mg HS YONNY Administration Intake and Output 11/19/17 11/20/17 11/20/17 22:59 06:59 14:59 Other: Voiding Method Toilet Toilet # Voids 1 Weight 71.5 kg 11/19/17 16:37 11/19/17 16:37 Assessment and Plan Assessment: ASSESSMENT 1. Chest pain, atypical. An acute coronary event has been ruled out with no EKG evidence of ischemia and normal cardiac enzymes. 2. Hypertensive urgency 3. Dyslipidemia 4. Family history of premature cardiac PLAN Obtain 2-D echocardiogram and Doppler study to assess cardiac structure and function. Increase amlodipine to 10 mg daily. Perform Lexiscan stress test to assess for stress-induced reversible cardiac ischemia. Further recommendations to follow based upon clinical course. Thank you kindly for this consultation. Nurse Practitioner note has been reviewed, I agree with a documented findings and plan of care. Patient was seen and examined.
--- NOTE | 2017-11-20 11:54 | NM ---
EXAMINATION TYPE: NM stress lexiscan cardiolite DATE OF EXAM: 11/20/2017 COMPARISON: NONE HISTORY: Chest pain TECHNIQUE: After the intravenous administration of 9.96 mCi Tc 99m Sestamibi - Cardiolite resting SP ECT images acquired 45 minutes post injection. The patient received 0.4mg Lexiscan, 23.8 mCi Tc 99m Sestamibi - Stress images obtained [address] injection FINDINGS: There may be some very subtle diminished radiotracer along the anterior wall on the stress images whi ch is not apparent on the resting images. No large perfusion defects are evident on the stress images . Findings are not confirmed on the polar maps. Finding is more likely related to breast artifact There is mild dyskinesia of the cardiac apex. Wall motion otherwise appears unremarkable. Ejection fr action of 73% is normal. IMPRESSION: 1. No definite stress-induced perfusion defect. 2. Dyskinesia at the cardiac apex. 3. Normal ejection fraction
--- NOTE | 2017-11-20 12:02 | P.STRESS ---
- Stress Test Note Stress Test Results/Findings: Exam Performed: NM stress lexiscan cardiolite Exam Date: 11/20/17 Reason for Exam: CHEST PAIN Height: 5 ft 3 in Weight: 71.214 kg Protocol: JONY Stage: NA Duration of Exercise: NA Resting Heart Rate: 74 Resting Blood Pressure: 177/66 Maximum Achieved Heart Rate: 98 Maximum Achieved Blood Pressure: 188/48 85% PMHR: 127 100% PMHR: 149 METS: NA Technologist Comment: Stress Test Results/Findings: This is a 72-year-old female with history of hypertension, hypercholesterolemia and family history being evaluated for symptoms of chest pain. Stress data: Baseline EKG showed sinus rhythm with normal [place] interval and QRS duration. A standard dose of Lexiscan was infused. EKGs taken during and after infusion did not reveal any changes to suggest ischemia. Report on the new plan. Images to be given by the radiologist. Final impression: #1. Negative Lexiscan stress test #2. Report on the nuclear images to be given by the radiologist
[2017-11-20] MEDS: LEVOTHYROXINE 75 MCG TAB PO SCH (12:05)
[2017-11-20] MEDS: LISINOPRIL 20 MG TAB PO SCH (12:07)
[2017-11-20] MEDS: FAMOTIDINE 20 MG TAB PO SCH ×2 (12:12→19:49)
[2017-11-20] MEDS ORDERED: ALPRAZolam 0.5 MG TAB PO PRN (12:15)
[2017-11-20] MEDS ORDERED: NITROGLYCERIN SL TABS 0.4 MG TAB SUBLINGUAL PRN (12:15)
[2017-11-20] MEDS ORDERED: SODIUM CHLORIDE 0.9% 1,000 ML in EMPTY BAG 1 BAG IV ONE (12:15)
[2017-11-20] MEDS ORDERED: ALPRAZolam 0.25 MG TAB PO PRN (12:15)
--- NOTE | 2017-11-20 12:43 | P.PN ---
Progress Note - Text Lexiscan stress test reviewed. Films reviewed and we recommend proceeding with cardiac catheterization to further assess for coronary artery disease. I have discussed the risks, benefits and alternative therapies for the above-mentioned procedure and for both sedation/analgesia as well as necessary blood product administration, if indicated, as they pertain to this patient. The patient has indicated understanding and acceptance of the risks and procedures discussed. Questions have been answered appropriately to the patient and her daughter. She is agreeable to move forward with above stated procedure. She will be NPO after midnight tonight for procedure in the morning. Case has been boarded for 0800.
[2017-11-20] MEDS: amLODIPine 10 MG TAB PO SCH (13:10)
[2017-11-20] MEDS: ATORVASTATIN 10 MG TAB PO SCH (19:47)
[2017-11-20 19:50] VITALS: RESP 16
[2017-11-20] MEDS: ACETAMINOPHEN TAB 325 MG TAB PO PRN (22:02)
[2017-11-20] MEDS: PHENobarbital 64.8 MG TAB PO SCH (22:02)
[2017-11-21] MEDS: LEVOTHYROXINE 75 MCG TAB PO SCH (06:03)
[2017-11-21] MEDS: amLODIPine 10 MG TAB PO SCH (06:03)
[2017-11-21] MEDS: LISINOPRIL 20 MG TAB PO SCH (06:03)
[2017-11-21] MEDS: FAMOTIDINE 20 MG TAB PO SCH (06:03)
[2017-11-21] MEDS ORDERED: SODIUM CHLORIDE 0.9% 1,000 ML IV ONE (08:00)
[2017-11-21] MEDS ORDERED: ASPIRIN 81 MG PO ONE (08:05)
[2017-11-21] MEDS ORDERED: MIDAZOLAM 2 MG/2 ML VIAL IV ONE (08:07)
[2017-11-21] MEDS: fentaNYL (PF) 50 MCG/ML 2 ML AMP IV ONE ×2 (08:07→08:16)
[2017-11-21] MEDS ORDERED: LIDOCAINE 2% INJ 20 MG/ML SQ ONE (08:09)
[2017-11-21] MEDS ORDERED: LIDOCAINE 2% SYG (PF) 100 MG/5 ML MISCELLANE ONE ×2 (08:09→08:14)
[2017-11-21] MEDS ORDERED: IOPAMIDOL-370 125ML BTL INJ ONE (08:32)
[2017-11-21] MEDS ORDERED: RX INFO: IV CONTRAST WAS GIVEN 1 EACH MISC MISCELLANE PRN (08:36)
--- NOTE | 2017-11-21 08:43 | P.PCN ---
Date of Procedure: 11/21/17 Preoperative Diagnosis: Chest pain and positive stress test Postoperative Diagnosis: No significant obstructive disease Procedure(s) Performed: Left heart catheterization without any left and photography Description of Procedure: HISTORY: This is a 72-year-old female with history of hypertension, hypercholesterolemia and family history of ischemic heart disease who was admitted to the hospital with complaints of chest pain which appear to be atypical. Patient had a Lexiscan stress test. This showed questionable ischemia in the anterolateral segments with questionable hypokinesia of the apex. Patient is advised to have a cardiac catheterization for definitive diagnosis. CONSENT:I have discussed the risks, benefits and alternative therapies for the above-mentioned procedure and for both sedation/analgesia as well as necessary blood product administration, if indicated, as they pertain to this patient. The patient has indicated understanding and acceptance of the risks and procedures discussed. PROCEDURE: Patient was brought to the lab in a fasting state. Patient was given IV sedation. The right groin is infiltrated with lidocaine and right femoral artery was entered using Seldinger technique. A 6-[place] catheter was left in place and selective coronary arteriography and left ventriculography was performed. Patient tolerated the procedure well. Femoral angiogram was performed and Angio-Seal was applied for hemostasis. No immediate complications were noted and patient was transferred to [facility] in a stable condition Conscious Sedation: Versed 1mg Fentanyl 50 g Duration 21minutes HEMODYNAMICS: The aortic pressure is about 140/70. Left ankle end-diastolic pressure is 12. There is mild reverse gradient across the aortic valve SELECTIVE CORONARY ARTERIOGRAPHY: LEFT MAIN: Long and free of any significant occlusive disease THE LEFT ANTERIOR DESCENDING CORONARY ARTERY: This is a moderate caliber vessel giving rise to good-sized diagonal branch. The LAD and its branches are free of any significant occlusive disease. THE LEFT CIRCUMFLEX AND IS CORONARY ARTERY: This is a moderate caliber vessel giving rise good-sized OM branch and seemed to be codominant. Free of any occlusive disease THE RIGHT CORONARY ARTERY: The right coronary artery is a moderate caliber vessel giving rise to PDA and PLV branches and seemed to be dominant vessel. Free of any significant occlusive disease LEFT VENTRICULOGRAPHY: Not performed FINAL IMPRESSION: No evidence of any significant obstructive coronary artery disease PLAN: Maximum medical therapy and this factor modification PROGNOSIS: Good
[2017-11-21] MEDS ORDERED: SODIUM CHLORIDE 0.9% 1,000 ML IV SCH (08:45)
[2017-11-21] MEDS: ACETAMINOPHEN TAB 325 MG TAB PO PRN (15:39)
--- NOTE | 2017-11-21 16:23 | EST ---
Stress Test Results/Findings: Exam Performed: NM stress lexiscan cardiolite Exam Date: 11/20/17 Reason for Exam: CHEST PAIN Height: 5 ft 3 in Weight: 71.214 kg Protocol: JONY Stage: NA Duration of Exercise: NA Resting Heart Rate: 74 Resting Blood Pressure: 177/66 Maximum Achieved Heart Rate: 98 Maximum Achieved Blood Pressure: 188/48 85% PMHR: 127 100% PMHR: 149 METS: NA Technologist Comment: Stress Test Results/Findings: This is a 72-year-old female with history of hypertension, hypercholesterolemia and family history being evaluated for symptoms of chest pain. Stress data: Baseline EKG showed sinus rhythm with normal [place] interval and QRS duration. A standard dose of Lexiscan was infused. EKGs taken during and after infusion did not reveal any changes to suggest ischemia. Report on the new plan. Images to be given by the radiologist. Final impression: #1. Negative Lexiscan stress test #2. Report on the nuclear images to be given by the radiologist JAYANT
[2017-11-21 16:30] VITALS: BP 137/66; PULSE 58; TEMP 98.5
== END 2017-11-21 19:10 | disposition home or self-care (01) | DRG 287 ==
LOC: EC 16:22 → 3OBS 18:33 → OBSVTOIN 11-20 15:57
PROVIDERS: ADMIT Family Medicine; ATTEND Family Medicine
PROC: B2111ZZ Fluoroscopy of Multiple Coronary Arteries using Low Osmolar Contrast (ICD-10-PCS; 2017-11-21)
PROC: 4A023N7 Measurement of Cardiac Sampling and Pressure, Left Heart, Percutaneous Approach (ICD-10-PCS; principal; 2017-11-21 08:00)
DX: R07.89 Other chest pain (principal); E78.00 Pure hypercholesterolemia, unspecified; K21.9 Gastro-esophageal reflux disease without esophagitis; E78.5 Hyperlipidemia, unspecified; F32.9 Major depressive disorder, single episode, unspecified; F41.9 Anxiety disorder, unspecified; E03.9 Hypothyroidism, unspecified; G40.909 Epilepsy, unspecified, not intractable, without status epilepticus; I16.0 Hypertensive urgency; Z82.49 Family history of ischemic heart disease and other diseases of the circulatory system; Z79.899 Other long term (current) drug therapy; Z79.890 Hormone replacement therapy; Z88.6 Allergy status to analgesic agent; Z88.5 Allergy status to narcotic agent; Z88.0 Allergy status to penicillin; Z88.2 Allergy status to sulfonamides; Z88.8 Allergy status to other drugs, medicaments and biological substances; Z86.010 Personal history of colon polyps
CPT/HCPCS: 36415; 71046; 71275; 75635; 78452; 80053; 82550; 82553; 83735; 83880; 84484; 85025; 85610; 85730; 93005; 93017; 93306; 93458; 94760; 96361; 96374; 96376; 99285

== ENCOUNTER 2018-05-27 04:18 | Emergency (ER) | payer MEDICARE, OTHER ==
[2018-05-27 04:24] VITALS: BP 176/59; PULSE 71; RESP 18; TEMP 97.6
--- NOTE | 2018-05-27 04:29 | ED ---
Female Urogenital HPI - General Chief complaint: Urogenital Stated complaint: Blood in urine Time Seen by Provider: 05/27/18 04:28 Source: patient Mode of arrival: EMS Limitations: no limitations - History of Present Illness Initial comments: Patient is a 73-year-old female presents to the emergency department today for dysuria and urinary frequency. Patient reports she was treated approximately 2- 3 weeks ago for urinary tract infection with by mouth Keflex. She reports she was taking 500 mg 3 times daily however she was only given 14 pills so the prescription lasted only 4 days. Patient reports she had minimal improvement in her symptoms at that time however they progressively worsened and she is now having constant dysuria and urge to urinate. - Related Data Home Medications Medication Instructions Recorded Confirmed Benazepril HCl 20 mg PO DAILY 02/24/14 11/19/17 Cholecalciferol [Vitamin D3] 2,000 unit PO BID 02/24/14 11/19/17 Cranberry Conc/C/Bacill Coag 2 tab PO TID 02/24/14 11/19/17 [Cranberry Tablet] Levothyroxine Sodium [Synthroid] 75 mcg PO DAILY 02/24/14 11/19/17 PHENobarbital 60 mg PO HS 02/24/14 11/19/17 Simvastatin [Zocor] 20 mg PO HS 02/24/14 11/19/17 amLODIPine [Norvasc] 5 mg PO DAILY 02/24/14 11/19/17 Calcium Carbonate [Calcium] 600 mg PO BID 05/01/17 11/19/17 Previous Rx's Medication Instructions Recorded Famotidine [Pepcid] 20 mg PO BID #40 tablet 06/11/14 Phenazopyridine HCl [Pyridium] 100 mg PO TID #9 tab 05/27/18 Allergies Allergy/AdvReac Type Severity Reaction Status Date / Time acetaminophen Allergy Diarrhea Verified 11/19/17 21:11 [From Coricidin] amoxicillin [Amoxicillin] Allergy Unknown Verified 11/19/17 21:11 aspirin Allergy Unknown Verified 11/19/17 21:11 chlorpheniramine maleate Allergy Diarrhea Verified 11/19/17 21:11 [From Coricidin] codeine Allergy Unknown Verified 11/19/17 21:11 fexofenadine HCl Allergy Nausea & Verified 11/19/17 21:11 [From Little] Vomiting & Diarrhea Hydantoins Allergy Unknown Verified 11/19/17 21:11 levofloxacin [From Levaquin] Allergy Unknown Verified 11/19/17 21:11 nitrofurantoin Allergy Rash/Hives Verified 11/19/17 21:11 [From Macrobid] phenylpropanolamine HCl Allergy Diarrhea Verified 11/19/17 21:11 [From Coricidin] phenytoin sodium Allergy Rash/Hives Verified 11/19/17 21:11 [From Dilantin] prednisone Allergy Unknown Verified 11/19/17 21:11 propoxyphene HCl Allergy Unknown Verified 11/19/17 21:11 [From Darvon] sulfamethoxazole Allergy Rash/Hives Verified 11/19/17 21:11 [From Bactrim] trimethoprim Allergy Unknown Verified 11/19/17 21:11 narcotic Allergy Unknown Uncoded 11/19/17 21:11 Review of Systems ROS Statement: Those systems with pertinent positive or pertinent negative responses have been documented in the HPI. ROS Other: All systems not noted in ROS Statement are negative. Past Medical History Past Medical History: GERD/Reflux, Hyperlipidemia, Hypertension, Seizure Disorder, Thyroid Disorder Additional Past Medical History / Comment(s): hx. colon polyps, >40 yrs. had seizures History of Any Multi-Drug Resistant Organisms: None Reported Past Surgical History: Cholecystectomy, Orthopedic Surgery Additional Past Surgical History / Comment(s): colonoscopy, hand surg. Past Anesthesia/Blood Transfusion Reactions: No Reported Reaction Past Psychological History: Anxiety, Depression Smoking Status: Never smoker Past Alcohol Use History: None Reported Past Drug Use History: None Reported - Past Family History Mother Family Medical History: Cancer Father History Unknown: Yes Sister(s) Family Medical History: Cancer Brother(s) History Unknown: Yes Son(s) Family Medical History: No Reported History Daughter(s) Additional Family Medical History / Comment(s): went without oxygen at General Exam - General Exam Comments Initial Comments: Physical Exam GENERAL: Patient is well-developed and well-nourished. Patient is nontoxic and well- hydrated and is in no distress. HENT: Normocephalic, Atraumatic. EYES: PERRL, EOMI PULMONARY: Unlabored respirations. No audible rales rhonchi or wheezing was noted. CARDIOVASCULAR: There is a regular rate and rhythm without any murmurs gallops or rubs. ABDOMEN: Soft and nontender with normal bowel sounds. SKIN: Skin is clear with no lesions or rashes and otherwise unremarkable. : Deferred NEUROLOGIC: Patient is alert and oriented x3. Moving all extremities spontaneously MUSCULOSKELETAL: Normal extremities with adequate strength and full range of motion. No lower extremity swelling or edema. No calf tenderness. PSYCHIATRIC: Normal psychiatric evaluation. Limitations: no limitations Limitations: no limitations Course Vital Signs 05/27/18 04:19 Temperature 97.6 F Pulse Rate 71 Respiratory 18 Rate Blood Pressure 176/59 O2 Sat by Pulse 100 Oximetry Medical Decision Making - Medical Decision Making Patient was seen and evaluated, history was obtained from patient Patient failed outpatient treatment with by mouth Keflex, was taking 3 pills daily rather than 2 in the prescription left him only 4 days. Patient has multiple drug ALLERGIES. At this time I will treat the patient with 3 g fosfomycin 1. A prescription will be called into her pharmacy at [facility]. Patient advised to follow-up with her primary care physician for repeat urinalysis in 3 days. All questions pertaining care answered best my ability patient was discharged home in stable condition. - Lab Data Lab Results 05/27/18 Range/Units 04:36 Urine Color Red Urine Appearance Turbid H (Clear) Urine pH 6.0 (5.0-8.0) Ur Specific [place] 1.017 (1.001-1.035) Urine Protein 3+ H (Negative) Urine Glucose (UA) Negative (Negative) Urine Ketones Negative (Negative) Urine Blood Large H (Negative) Urine Nitrite Negative (Negative) Urine Bilirubin Negative (Negative) Urine Urobilinogen <2.0 (<2.0) mg/dL Ur Leukocyte Esterase Large H (Negative) Urine RBC >182 H (0-5) /hpf Urine WBC >182 H (0-5) /hpf Ur Squamous Epith Cells 7 H (0-4) /hpf Urine Bacteria Moderate H (None) /hpf Urine Mucus Rare H (None) /hpf Disposition Clinical Impression: Urinary tract infection Disposition: HOME SELF-CARE Instructions: Urinary Tract Infection in Women (ED) Is patient prescribed a controlled substance at d/c from ED?: No Referrals: Nish Trimble MD [Primary Care Provider] - 1-2 days
[2018-05-27 04:57] LABS: Appearance,Urine Turbid (Clear); Bacteria,Urine Moderate /hpf; Bilirubin,Urine Negative (Negative); Blood,Urine Large (Negative); Color,Urine Red; Glucose,Urine (UA) Negative (Negative); Ketones,Urine Negative (Negative); Leukocyte Esterase,Urine Large (Negative); Mucus,Urine Rare /hpf; Nitrite,Urine Negative (Negative); Protein,Urine 3+ (Negative); RBC,Urine >182 /hpf (0-5); Specific Gravity,Urine 1.017 (1.001-1.035); Squamous Epithelial Cell,Urine 7 /hpf (0-4); Urobilinogen,Urine <2.0 mg/dL (<2.0); WBC,Urine >182 /hpf (0-5)
[2018-05-27] MEDS ORDERED: PHENAZOPYRIDINE 100 MG TAB PO STA (05:14)
== END 2018-05-27 05:58 | disposition home or self-care (01) ==
LOC: EC 04:18
DX: N39.0 Urinary tract infection, site not specified (principal); E07.9 Disorder of thyroid, unspecified; E78.5 Hyperlipidemia, unspecified; G40.909 Epilepsy, unspecified, not intractable, without status epilepticus; K21.9 Gastro-esophageal reflux disease without esophagitis; I10 Essential (primary) hypertension; Z79.899 Other long term (current) drug therapy; Z88.1 Allergy status to other antibiotic agents; Z88.0 Allergy status to penicillin; Z88.6 Allergy status to analgesic agent; Z88.8 Allergy status to other drugs, medicaments and biological substances; Z88.2 Allergy status to sulfonamides; Z88.5 Allergy status to narcotic agent; Z86.010 Personal history of colon polyps; Z90.49 Acquired absence of other specified parts of digestive tract
CPT/HCPCS: 81001; 87086; 99283

== ENCOUNTER 2018-06-06 04:40 | Emergency (ER) | payer MEDICARE, OTHER ==
[2018-06-06 04:48] VITALS: RESP 20
--- NOTE | 2018-06-06 05:15 | ED ---
Female Urogenital HPI - General Chief complaint: Urogenital Stated complaint: UTI Time Seen by Provider: 06/06/18 04:41 Source: patient Mode of arrival: EMS Limitations: no limitations - History of Present Illness Initial comments: Sandee is a 73-year-old female presents to the emergency department today for evaluation of dysuria, urinary frequency. Patient was seen and evaluated 10 days ago which time she was noted to have hematuria, there seemed to be some skin contamination in her urine but she was treated for urinary tract infection with Keflex. Patient completed this antibiotic on Monday. She reports that today she woke up with recurrent symptoms, patient does not have a car and she does not drive therefore she called 911 for transport to the emergency department. - Related Data Home Medications Medication Instructions Recorded Confirmed Benazepril HCl 20 mg PO DAILY 02/24/14 06/06/18 Cholecalciferol [Vitamin D3] 2,000 unit PO BID 02/24/14 06/06/18 Cranberry Conc/C/Bacill Coag 2 tab PO TID 02/24/14 06/06/18 [Cranberry Tablet] Levothyroxine Sodium [Synthroid] 75 mcg PO DAILY 02/24/14 06/06/18 PHENobarbital 60 mg PO HS 02/24/14 06/06/18 Simvastatin [Zocor] 20 mg PO HS 02/24/14 06/06/18 amLODIPine [Norvasc] 5 mg PO DAILY 02/24/14 06/06/18 Calcium Carbonate [Calcium] 600 mg PO BID 05/01/17 06/06/18 Carboxymethylcellulose Sodium 1 drop BOTH EYES DAILY 06/06/18 06/06/18 [Refresh Tears] Previous Rx's Medication Instructions Recorded Famotidine [Pepcid] 20 mg PO BID #40 tablet 06/11/14 Cephalexin [Keflex] 500 mg PO Q12HR #14 cap 06/06/18 Allergies Allergy/AdvReac Type Severity Reaction Status Date / Time acetaminophen Allergy Diarrhea Verified 06/06/18 06:57 [From Coricidin] amoxicillin [Amoxicillin] Allergy Unknown Verified 06/06/18 06:57 aspirin Allergy Unknown Verified 06/06/18 06:57 chlorpheniramine maleate Allergy Diarrhea Verified 06/06/18 06:57 [From Coricidin] codeine Allergy Unknown Verified 06/06/18 06:57 fexofenadine HCl Allergy Nausea & Verified 06/06/18 06:57 [From Little] Vomiting & Diarrhea Hydantoins Allergy Unknown Verified 06/06/18 06:57 levofloxacin [From Levaquin] Allergy Unknown Verified 06/06/18 06:57 nitrofurantoin Allergy Rash/Hives Verified 06/06/18 06:57 [From Macrobid] phenylpropanolamine HCl Allergy Diarrhea Verified 06/06/18 06:57 [From Coricidin] phenytoin sodium Allergy Rash/Hives Verified 06/06/18 06:57 [From Dilantin] prednisone Allergy Unknown Verified 06/06/18 06:57 propoxyphene HCl Allergy Unknown Verified 06/06/18 06:57 [From Darvon] sulfamethoxazole Allergy Rash/Hives Verified 06/06/18 06:57 [From Bactrim] trimethoprim Allergy Unknown Verified 06/06/18 06:57 narcotic Allergy Unknown Uncoded 11/19/17 21:11 Review of Systems ROS Statement: Those systems with pertinent positive or pertinent negative responses have been documented in the HPI. ROS Other: All systems not noted in ROS Statement are negative. Past Medical History Past Medical History: GERD/Reflux, Hyperlipidemia, Hypertension, Seizure Disorder, Thyroid Disorder Additional Past Medical History / Comment(s): hx. colon polyps, >40 yrs. had seizures History of Any Multi-Drug Resistant Organisms: None Reported Past Surgical History: Cholecystectomy, Orthopedic Surgery Additional Past Surgical History / Comment(s): colonoscopy, hand surg. Past Anesthesia/Blood Transfusion Reactions: No Reported Reaction Past Psychological History: Anxiety, Depression Smoking Status: Never smoker Past Alcohol Use History: None Reported Past Drug Use History: None Reported - Past Family History Mother Family Medical History: Cancer Father History Unknown: Yes Sister(s) Family Medical History: Cancer Brother(s) History Unknown: Yes Son(s) Family Medical History: No Reported History Daughter(s) Additional Family Medical History / Comment(s): went without oxygen at General Exam - General Exam Comments Initial Comments: Physical Exam GENERAL: Patient is well-developed and well-nourished. Patient is nontoxic and well- hydrated and is in no distress. HENT: Normocephalic, Atraumatic. EYES: PERRL, EOMI PULMONARY: Unlabored respirations. No audible rales rhonchi or wheezing was noted. CARDIOVASCULAR: There is a regular rate and rhythm without any murmurs gallops or rubs. ABDOMEN: Soft and nontender with normal bowel sounds. SKIN: Skin is clear with no lesions or rashes and otherwise unremarkable. : Deferred NEUROLOGIC: Patient is alert and oriented x3. Moving all extremities spontaneously MUSCULOSKELETAL: Normal extremities with adequate strength and full range of motion. No lower extremity swelling or edema. No calf tenderness. PSYCHIATRIC: Normal psychiatric evaluation. Limitations: no limitations Limitations: no limitations Course Vital Signs 06/06/18 06/06/18 04:41 07:30 Temperature 98.4 F 97.9 F Pulse Rate 77 63 Respiratory 20 20 Rate Blood Pressure 193/82 167/94 O2 Sat by Pulse 100 95 Oximetry Medical Decision Making - Medical Decision Making Patient was seen and evaluated history was obtained from patient and review of medical record Patient with recurrent urinary tract infections multiple medication ALLERGIES was seen 10 days ago and was noted to have hematuria culture was reviewed and revealed only skin rene with no pathologic for noted Discussed with the patient how to provide an appropriate clean catch urine sample, repeatedly advised to the patient that she wipes front to back with the wipes and then provide a urine sample into the head in the toilet. Upon teach back patient stated that she would wipe front to back with the first wipe and back to front with the second white. I again reiterated to the patient that to obtain a clean catch sample and at all times she should wipe front to back. Advised that wiping back to front is likely contributing to her recurrent urinary tract infections. A clean catch urine sample was obtained Urinalysis is suggestive of a urinary tract infection, culture was again obtained patient with no Sirs criteria concerning symptoms of systemic infection The patient's multiple ALLERGIES IV Rocephin and gentamicin were ordered She will be discharged home again on by mouth Keflex and advised follow-up with urology for further evaluation. All cushions pertaining to care were answered return parameters were discussed and patient was discharged home in stable condition. - Lab Data Lab Results 06/06/18 Range/Units 04:50 Urine Color Yellow Urine Appearance Turbid H (Clear) Urine pH 6.5 (5.0-8.0) Ur Specific Diggs 1.014 (1.001-1.035) Urine Protein 2+ H (Negative) Urine Glucose (UA) Negative (Negative) Urine Ketones Negative (Negative) Urine Blood Large H (Negative) Urine Nitrite Negative (Negative) Urine Bilirubin Negative (Negative) Urine Urobilinogen <2.0 (<2.0) mg/dL Ur Leukocyte Esterase Large H (Negative) Urine RBC >182 H (0-5) /hpf Urine WBC >182 H (0-5) /hpf Urine WBC Clumps Rare H (None) /hpf Ur Squamous Epith Cells 1 (0-4) /hpf Urine Bacteria Rare H (None) /hpf Urine Mucus Rare H (None) /hpf Disposition Clinical Impression: Urinary tract infection Disposition: HOME SELF-CARE Condition: Good Prescriptions: Cephalexin [Keflex] 500 mg PO Q12HR #14 cap Is patient prescribed a controlled substance at d/c from ED?: No Referrals: Nish Trimble MD [Primary Care Provider] - 1-2 days
[2018-06-06 05:33] LABS: Appearance,Urine Turbid (Clear); Bacteria,Urine Rare /hpf; Bilirubin,Urine Negative (Negative); Blood,Urine Large (Negative); Color,Urine Yellow; Glucose,Urine (UA) Negative (Negative); Ketones,Urine Negative (Negative); Leukocyte Esterase,Urine Large (Negative); Mucus,Urine Rare /hpf; Nitrite,Urine Negative (Negative); PH, Urine 6.5 (5.0-8.0); Protein,Urine 2+ (Negative); RBC,Urine >182 /hpf (0-5); Specific Gravity,Urine 1.014 (1.001-1.035); Squamous Epithelial Cell,Urine 1 /hpf (0-4); Urobilinogen,Urine <2.0 mg/dL (<2.0); WBC,Urine >182 /hpf (0-5)
[2018-06-06] MEDS ORDERED: GENTAMICIN 280 MG in SODIUM CHLORIDE 0.9% 100 ML IVPB ONE (06:30)
[2018-06-06 07:35] VITALS: BP 167/94; PULSE 63; TEMP 97.9
== END 2018-06-06 08:12 | disposition home or self-care (01) ==
LOC: EC 04:40
DX: N39.0 Urinary tract infection, site not specified (principal); K21.9 Gastro-esophageal reflux disease without esophagitis; E78.5 Hyperlipidemia, unspecified; I10 Essential (primary) hypertension; G40.909 Epilepsy, unspecified, not intractable, without status epilepticus; E07.9 Disorder of thyroid, unspecified; F32.9 Major depressive disorder, single episode, unspecified; F41.9 Anxiety disorder, unspecified; Z79.899 Other long term (current) drug therapy; Z88.0 Allergy status to penicillin; Z88.2 Allergy status to sulfonamides; Z88.1 Allergy status to other antibiotic agents; Z88.5 Allergy status to narcotic agent; Z88.6 Allergy status to analgesic agent; Z88.8 Allergy status to other drugs, medicaments and biological substances; Z90.49 Acquired absence of other specified parts of digestive tract
CPT/HCPCS: 81001; 87086; 99284; 96365; 96368; J0696; J1580; 87077; 87186

== ENCOUNTER 2018-07-30 23:07 | Emergency (ER) | payer MEDICARE, OTHER ==
[2018-07-30 23:12] VITALS: RESP 16; TEMP 97.5
--- NOTE | 2018-07-30 23:17 | ED ---
General Adult HPI - General Chief complaint: Recheck/Abnormal Lab/Rx Stated complaint: hypertension Time Seen by Provider: 07/30/18 23:09 Source: patient, EMS Mode of arrival: EMS Limitations: no limitations - History of Present Illness Initial comments: This patient is a 73-year-old woman who presents to be evaluated for right upper extremity tingling. Patient states that she had noted this about 2 hours before coming in. She states that she had been watching television at the time. The patient then checked her blood pressure and found that it was elevated. Patient denies other symptoms. She is not having fever or chills, headache, change in vision or speech or hearing. Patient denies weakness or numbness of the extremities. No chest pain, cough, or dyspnea. She has not had change in urination or bowel movements. No rash area Onset/Timin -: hour(s) Location: right, upper extremity Radiation: non-radiation Severity scale (1-10): 0 Consistency: constant Improves with: none Worsens with: none Associated Symptoms: denies other symptoms Treatments Prior to Arrival: none - Related Data Home Medications Medication Instructions Recorded Confirmed Benazepril HCl 20 mg PO DAILY 02/24/14 07/30/18 Cholecalciferol [Vitamin D3] 2,000 unit PO BID 02/24/14 07/30/18 Cranberry Conc/C/Bacill Coag 2 tab PO TID 02/24/14 07/30/18 [Cranberry Tablet] Levothyroxine Sodium [Synthroid] 75 mcg PO DAILY 02/24/14 07/30/18 PHENobarbital 60 mg PO HS 02/24/14 07/30/18 Simvastatin [Zocor] 20 mg PO HS 02/24/14 07/30/18 Calcium Carbonate [Calcium] 600 mg PO BID 05/01/17 07/30/18 Carboxymethylcellulose Sodium 1 drop BOTH EYES DAILY 06/06/18 07/30/18 [Refresh Tears] amLODIPine [Norvasc] 10 mg PO DAILY 07/30/18 07/30/18 Previous Rx's Medication Instructions Recorded Famotidine [Pepcid] 20 mg PO BID #40 tablet 06/11/14 Allergies Allergy/AdvReac Type Severity Reaction Status Date / Time aspirin Allergy Unknown Verified 07/30/18 23:40 fexofenadine HCl Allergy Nausea & Verified 07/30/18 23:40 [From Little] Vomiting & Diarrhea Hydantoins Allergy Unknown Verified 07/30/18 23:40 levofloxacin [From Levaquin] Allergy Unknown Verified 07/30/18 23:40 nitrofurantoin Allergy Rash/Hives Verified 07/30/18 23:40 [From Macrobid] phenytoin sodium Allergy Rash/Hives Verified 07/30/18 23:40 [From Dilantin] sulfamethoxazole Allergy Rash/Hives Verified 07/30/18 23:40 [From Bactrim] trimethoprim Allergy Rash/Hives Verified 07/30/18 23:40 acetaminophen AdvReac Diarrhea Verified 07/30/18 23:40 [From Coricidin] amoxicillin [Amoxicillin] AdvReac Nausea & Verified 07/30/18 23:40 Vomiting & Diarrhea chlorpheniramine maleate AdvReac Diarrhea Verified 07/30/18 23:40 [From Coricidin] codeine AdvReac DIZZINESS Verified 07/30/18 23:40 phenylpropanolamine HCl AdvReac Diarrhea Verified 07/30/18 23:40 [From Coricidin] prednisone AdvReac Nausea & Verified 07/30/18 23:40 Vomiting & Diarrhea propoxyphene HCl AdvReac DIZZINESS Verified 07/30/18 23:40 [From Darvon] narcotic Allergy LETHARGIC/H Uncoded 07/30/18 23:40 [place]CE[place]ND[place] Review of Systems ROS Statement: Those systems with pertinent positive or pertinent negative responses have been documented in the HPI. ROS Other: All systems not noted in ROS Statement are negative. Constitutional: Denies: fever, chills, weakness Eyes: Denies: eye pain, vision change ENT: Denies: hearing loss Respiratory: Denies: cough, dyspnea Cardiovascular: Denies: chest pain, palpitations, edema, syncope Gastrointestinal: Denies: abdominal pain, vomiting, diarrhea Genitourinary: Denies: dysuria Musculoskeletal: Denies: back pain Skin: Denies: rash Neurological: Reports: as per HPI, paresthesias. Denies: headache, weakness, numbness Past Medical History Past Medical History: GERD/Reflux, Hyperlipidemia, Hypertension, Seizure Disorder, Thyroid Disorder Additional Past Medical History / Comment(s): hx. colon polyps, >40 yrs. had seizures History of Any Multi-Drug Resistant Organisms: None Reported Past Surgical History: Cholecystectomy, Orthopedic Surgery Additional Past Surgical History / Comment(s): colonoscopy, hand surg. Past Anesthesia/Blood Transfusion Reactions: No Reported Reaction Past Psychological History: Anxiety, Depression Smoking Status: Never smoker Past Alcohol Use History: None Reported Past Drug Use History: None Reported - Past Family History Mother Family Medical History: Cancer Father History Unknown: Yes Sister(s) Family Medical History: Cancer Brother(s) History Unknown: Yes Son(s) Family Medical History: No Reported History Daughter(s) Additional Family Medical History / Comment(s): went without oxygen at General Exam Limitations: no limitations General appearance: alert, in no apparent distress Head exam: Present: atraumatic, normocephalic Eye exam: Present: normal appearance. Absent: scleral icterus, conjunctival injection ENT exam: Present: normal oropharynx Neck exam: Present: normal inspection Respiratory exam: Present: normal lung sounds bilaterally. Absent: respiratory distress, wheezes, rales, rhonchi, stridor Cardiovascular Exam: Present: regular rate, normal rhythm, normal heart sounds. Absent: systolic murmur, diastolic murmur, rubs, gallop GI/Abdominal exam: Present: soft. Absent: distended, tenderness, guarding, rebound, rigid Extremities exam: Present: normal inspection, normal capillary refill. Absent: pedal edema, calf tenderness Back exam: Present: normal inspection Neurological exam: Present: alert, oriented X3, CN II-XII intact. Absent: motor sensory deficit Skin exam: Present: warm, dry, intact, normal color. Absent: rash Course Vital Signs 07/30/18 07/30/18 07/30/18 23:09 23:21 23:30 Temperature 97.5 F L Pulse Rate 74 75 65 Respiratory 16 16 16 Rate Blood Pressure 194/75 194/75 194/75 O2 Sat by Pulse 98 97 97 Oximetry 07/31/18 07/31/18 07/31/18 00:00 00:30 01:00 Temperature Pulse Rate 62 64 56 L Respiratory 16 16 Rate Blood Pressure 177/78 175/76 173/70 O2 Sat by Pulse 97 96 89 L Oximetry 07/31/18 07/31/18 07/31/18 01:30 03:30 04:00 Temperature Pulse Rate 56 L 56 L 60 Respiratory 16 16 Rate Blood Pressure 135/59 136/74 136/67 O2 Sat by Pulse 100 94 L 95 Oximetry EKG Findings - EKG Results: EKG: interpreted by SANDRA, WNL, sinus rhythm (Rate 73 bpm), normal axis, normal QRS, normal ST/T, no acute changes Medical Decision Making - Lab Data Result diagrams: 07/30/18 23:19 07/30/18 23:19 Lab Results 07/30/18 07/30/18 07/30/18 Range/Units 23:19 23: 23:19 WBC 7.5 (3.8-10.6) k/uL RBC 4.20 (3.80-5.40) m/uL Hgb 13.3 (11.4-16.0) gm/dL Hct 39.8 (34.0-46.0) % MCV 94.7 (80.0-100.0) fL MCH 31.6 (25.0-35.0) pg MCHC 33.4 (31.0-37.0) g/dL RDW 13.6 (11.5-15.5) % Plt Count 193 (150-450) k/uL Neutrophils % 62 % Lymphocytes % 27 % Monocytes % 6 % Eosinophils % 1 % Basophils % 1 % Neutrophils # 4.6 (1.3-7.7) k/uL Lymphocytes # 2.0 (1.0-4.8) k/uL Monocytes # 0.5 (0-1.0) k/uL Eosinophils # 0.1 (0-0.7) k/uL Basophils # 0.1 (0-0.2) k/uL Sodium 139 (137-145) mmol/L Potassium 4.0 (3.5-5.1) mmol/L Chloride 103 (98-107) mmol/L Carbon Dioxide 26 (22-30) mmol/L Anion Gap 10 mmol/L BUN 20 H (7-17) mg/dL Creatinine 0.73 (0.52-1.04) mg/dL Est GFR (CKD-EPI)AfAm >90 (>60 ml/min/1.73 sqM) Est GFR (CKD-EPI)NonAf 83 (>60 ml/min/1.73 sqM) Glucose 116 H (74-99) mg/dL Calcium 9.4 (8.4-10.2) mg/dL Magnesium 1.8 (1.6-2.3) mg/dL Total Bilirubin 0.4 (0.2-1.3) mg/dL AST 25 (14-36) U/L ALT 31 (9-52) U/L Alkaline Phosphatase 93 (38-126) U/L Troponin I <0.012 (0.000-0.034) ng/mL Total Protein 7.5 (6.3-8.2) g/dL Albumin 4.3 (3.5-5.0) g/dL 07/31/18 Range/Units 04:15 WBC (3.8-10.6) k/uL RBC (3.80-5.40) m/uL Hgb (11.4-16.0) gm/dL Hct (34.0-46.0) % MCV (80.0-100.0) fL MCH (25.0-35.0) pg MCHC (31.0-37.0) g/dL RDW (11.5-15.5) % Plt Count (150-450) k/uL Neutrophils % % Lymphocytes % % Monocytes % % Eosinophils % % Basophils % % Neutrophils # (1.3-7.7) k/uL Lymphocytes # (1.0-4.8) k/uL Monocytes # (0-1.0) k/uL Eosinophils # (0-0.7) k/uL Basophils # (0-0.2) k/uL Sodium (137-145) mmol/L Potassium (3.5-5.1) mmol/L Chloride (98-107) mmol/L Carbon Dioxide (22-30) mmol/L Anion Gap mmol/L BUN (7-17) mg/dL Creatinine (0.52-1.04) mg/dL Est GFR (CKD-EPI)AfAm (>60 ml/min/1.73 sqM) Est GFR (CKD-EPI)NonAf (>60 ml/min/1.73 sqM) Glucose (74-99) mg/dL Calcium (8.4-10.2) mg/dL Magnesium (1.6-2.3) mg/dL Total Bilirubin (0.2-1.3) mg/dL AST (14-36) U/L ALT (9-52) U/L Alkaline Phosphatase (38-126) U/L Troponin I 0.021 (0.000-0.034) ng/mL Total Protein (6.3-8.2) g/dL Albumin (3.5-5.0) g/dL Disposition Clinical Impression: Chest pain Disposition: HOME SELF-CARE Condition: Good Instructions (If sedation given, give patient instructions): Angina (ED) Is patient prescribed a controlled substance at d/c from ED?: No Referrals: Nish Trimble MD [Primary Care Provider] - 1-2 days
[2018-07-30] MEDS ORDERED: cloNIDine HCL 0.2 MG TAB PO STA (23:32)
[2018-07-30 23:57] LABS: Basophils # (A) 0.1 k/uL (0-0.2); Basophils % (A) 1 %; Eosinophils # (A) 0.1 k/uL (0-0.7); Eosinophils % (A) 1 %; HCT 39.8 % (34.0-46.0); HGB 13.3 gm/dL (11.4-16.0); Lymphocytes % (A) 27 %; MCH 31.6 pg (25.0-35.0); MCHC 33.4 g/dL (31.0-37.0); MCV 94.7 fL (80.0-100.0); Mean Platelet Volume 7.4; Monocytes # (A) 0.5 k/uL (0-1.0); Monocytes % (A) 6 %; Neutrophils # (A) 4.6 k/uL (1.3-7.7); Neutrophils % (A) 62 %; Platelet Count 193 k/uL (150-450); RDW 13.6 % (11.5-15.5); WBC 7.5 k/uL (3.8-10.6)
[2018-07-31 00:07] LABS: ALT 31 U/L (9-52); AST 25 U/L (14-36); Albumin 4.3 g/dL (3.5-5.0); Alkaline Phosphatase 93 U/L (38-126); Anion Gap 10 mmol/L; Blood Urea Nitrogen 20 mg/dL (7-17); Calcium 9.4 mg/dL (8.4-10.2); Carbon Dioxide 26 mmol/L (22-30); Chloride 103 mmol/L (98-107); Glucose 116 mg/dL (74-99); Magnesium 1.8 mg/dL (1.6-2.3); Sodium 139 mmol/L (137-145); Total Bilirubin 0.4 mg/dL (0.2-1.3); Total Protein 7.5 g/dL (6.3-8.2)
[2018-07-31] MEDS ORDERED: SODIUM CHLORIDE 0.9% 500 ML 500 ML IV STA (00:33)
[2018-07-31 05:57] VITALS: BP 130/75; PULSE 54
== END 2018-07-31 05:56 | disposition home or self-care (01) ==
LOC: EC 23:07
DX: I10 Essential (primary) hypertension (principal); R07.9 Chest pain, unspecified; R20.2 Paresthesia of skin; E78.5 Hyperlipidemia, unspecified; G40.909 Epilepsy, unspecified, not intractable, without status epilepticus; E07.9 Disorder of thyroid, unspecified; Z79.890 Hormone replacement therapy; Z79.899 Other long term (current) drug therapy; Z88.6 Allergy status to analgesic agent; Z88.8 Allergy status to other drugs, medicaments and biological substances; Z88.1 Allergy status to other antibiotic agents; Z88.2 Allergy status to sulfonamides; Z88.0 Allergy status to penicillin; Z88.5 Allergy status to narcotic agent
CPT/HCPCS: 36415; 80053; 83735; 84484; 85025; 93005; 96360; 99284

== ENCOUNTER 2019-07-02 14:08 | Emergency (ER) | payer MEDICARE, OTHER ==
[2019-07-02 14:20] VITALS: RESP 18; TEMP 97.6
[2019-07-02] MEDS ORDERED: SODIUM CHLORIDE 0.9% 500 ML 500 ML IV STA (14:52)
[2019-07-02] MEDS ORDERED: KETOROLAC 30 MG/ML 1 ML VIAL IVP STA (14:53)
--- NOTE | 2019-07-02 14:59 | ED ---
General Adult HPI - General Chief complaint: Recheck/Abnormal Lab/Rx Stated complaint: UTI Time Seen by Provider: 07/02/19 14:22 Source: EMS, RN notes reviewed Mode of arrival: EMS Limitations: no limitations - History of Present Illness Initial comments: 74-year-old female with a past medical history of hyperlipidemia, hypertension, colon polyps, GERD presents to the emergency determine for chief complaint of abdominal pain. Patient states she has had lower abdominal pain for the past couple days. States it is a cramping nature and comes and goes. Patient is unsure when she last had a bowel movement. Patient does state that she was diagnosed with a urinary tract infection at urgent care yesterday. States she started her antibiotic yesterday but does not feel better. Patient has taken is less than 24 hours. Patient denies nausea or vomiting. Denies fevers or chills.Patient has no other complaints at this time including shortness of b reath, chest pain, abdominal pain, nausea or vomiting, headache, or visual changes. - Related Data Home Medications Medication Instructions Recorded Confirmed Benazepril HCl 20 mg PO DAILY 02/24/14 07/30/18 Cholecalciferol [Vitamin D3] 2,000 unit PO BID 02/24/14 07/30/18 Cranberry Conc/C/Bacill Coag 2 tab PO TID 02/24/14 07/30/18 [Cranberry Tablet] Levothyroxine Sodium [Synthroid] 75 mcg PO DAILY 02/24/14 07/30/18 PHENobarbital 60 mg PO HS 02/24/14 07/30/18 Simvastatin [Zocor] 20 mg PO HS 02/24/14 07/30/18 Calcium Carbonate [Calcium] 600 mg PO BID 05/01/17 07/30/18 Carboxymethylcellulose Sodium 1 drop BOTH EYES DAILY 06/06/18 07/30/18 [Refresh Tears] amLODIPine [Norvasc] 10 mg PO DAILY 07/30/18 07/30/18 Previous Rx's Medication Instructions Recorded Famotidine [Pepcid] 20 mg PO BID #40 tablet 06/11/14 Amoxicillin/Potassium Clav 1 tab PO Q12HR #20 tab 07/02/19 [Augmentin 875-125 Tablet] Ondansetron [Zofran ODT] 4 mg PO Q8HR PRN #15 tab 07/02/19 Allergies Allergy/AdvReac Type Severity Reaction Status Date / Time aspirin Allergy Unknown Verified 07/30/18 23:40 fexofenadine HCl Allergy Nausea & Verified 07/30/18 23:40 [From Little] Vomiting & Diarrhea Hydantoins Allergy Unknown Verified 07/30/18 23:40 levofloxacin [From Levaquin] Allergy Unknown Verified 07/30/18 23:40 nitrofurantoin Allergy Rash/Hives Verified 07/30/18 23:40 [From Macrobid] phenytoin sodium Allergy Rash/Hives Verified 07/30/18 23:40 [From Dilantin] sulfamethoxazole Allergy Rash/Hives Verified 07/30/18 23:40 [From Bactrim] trimethoprim Allergy Rash/Hives Verified 07/30/18 23:40 acetaminophen AdvReac Diarrhea Verified 07/30/18 23:40 [From Coricidin] amoxicillin [Amoxicillin] AdvReac Nausea & Verified 07/30/18 23:40 Vomiting & Diarrhea chlorpheniramine maleate AdvReac Diarrhea Verified 07/30/18 23:40 [From Coricidin] codeine AdvReac DIZZINESS Verified 07/30/18 23:40 phenylpropanolamine HCl AdvReac Diarrhea Verified 07/30/18 23:40 [From Coricidin] prednisone AdvReac Nausea & Verified 07/30/18 23:40 Vomiting & Diarrhea propoxyphene HCl AdvReac DIZZINESS Verified 07/30/18 23:40 [From Darvon] narcotic Allergy LETHARGIC/H Uncoded 07/30/18 23:40 EADACHES Review of Systems ROS Statement: Those systems with pertinent positive or pertinent negative responses have been documented in the HPI. ROS Other: All systems not noted in ROS Statement are negative. Past Medical History Past Medical History: GERD/Reflux, Hyperlipidemia, Hypertension, Seizure Disorder, Thyroid Disorder Additional Past Medical History / Comment(s): hx. colon polyps, >40 yrs. had seizures History of Any Multi-Drug Resistant Organisms: None Reported Past Surgical History: Cholecystectomy, Orthopedic Surgery Additional Past Surgical History / Comment(s): colonoscopy, hand surg. Past Anesthesia/Blood Transfusion Reactions: No Reported Reaction Past Psychological History: Anxiety, Depression Smoking Status: Never smoker Past Alcohol Use History: None Reported Past Drug Use History: None Reported - Past Family History Mother Family Medical History: Cancer Father History Unknown: Yes Sister(s) Family Medical History: Cancer Brother(s) History Unknown: Yes Son(s) Family Medical History: No Reported History Daughter(s) Additional Family Medical History / Comment(s): went without oxygen at General Exam Limitations: no limitations General appearance: alert, in no apparent distress Head exam: Present: atraumatic, normocephalic, normal inspection Eye exam: Present: normal appearance, PERRL, EOMI. Absent: scleral icterus, conjunctival injection, periorbital swelling ENT exam: Present: normal exam, mucous membranes moist Neck exam: Present: normal inspection, full ROM. Absent: tenderness, meningismus, lymphadenopathy Respiratory exam: Present: normal lung sounds bilaterally. Absent: respiratory distress, wheezes, rales, rhonchi, stridor Cardiovascular Exam: Present: regular rate, normal rhythm, normal heart sounds. Absent: systolic murmur, diastolic murmur, rubs, gallop, clicks GI/Abdominal exam: Present: soft, tenderness (Tenderness in right lower quadrant / suprapubic area), normal bowel sounds. Absent: distended, guarding, rebound, rigid Neurological exam: Present: alert Course Vital Signs 07/02/19 14:10 Temperature 97.6 F Pulse Rate 84 Respiratory 18 Rate Blood Pressure 157/82 O2 Sat by Pulse 98 Oximetry Medical Decision Making - Medical Decision Making Vitals are stable. Patient does have right lower quadrant suprapubic tenderness. CBC shows a white count of 13. CMP unremarkable. CT abdomen and pelvis shows inflammatory changes a wall thickening involving the mid sigmoid colon with numerous sigmoid diverticula consistent with diverticulitis. Mild free fluid in the cul-de-sac consistent with inflammatory process. Incidental findings of bilateral ovarian cysts. Discussed inpatient versus outpatient management with patient. I did offer admission. Patient refuses at this time stating she would prefer to try outpatient remittent. Patient has numerous ALLERGIES. I did speak with patient and she states her doctor told her she cannot take Levaquin. Although patient has an amoxicillin ALLERGY she'll be started on Augmentin given her ALLERGY includes nausea vomiting diarrhea which is more of a side effect profile. I will also prescribe patient with Zofran to help her with this. I did discuss that she is unable to tolerate the antibiotic she needs to return to the ER for admission and IV antibiotic therapy. - Lab Data Result diagrams: 07/02/19 16:29 07/02/19 16:29 Lab Results 07/02/19 07/02/19 07/02/19 Range/Units 14:14 16:29 16:29 WBC 13.4 H (3.8-10.6) k/uL RBC 4.70 (3.80-5.40) m/uL Hgb 14.7 (11.4-16.0) gm/dL Hct 44.6 (34.0-46.0) % MCV 94.9 (80.0-100.0) fL MCH 31.2 (25.0-35.0) pg MCHC 32.9 (31.0-37.0) g/dL RDW 13.1 (11.5-15.5) % Plt Count 214 (150-450) k/uL Neutrophils % 83 % Lymphocytes % 8 % Monocytes % 6 % Eosinophils % 1 % Basophils % 1 % Neutrophils # 11.1 H (1.3-7.7) k/uL Lymphocytes # 1.1 (1.0-4.8) k/uL Monocytes # 0.7 (0-1.0) k/uL Eosinophils # 0.1 (0-0.7) k/uL Basophils # 0.1 (0-0.2) k/uL Sodium 138 (137-145) mmol/L Potassium 4.2 (3.5-5.1) mmol/L Chloride 101 (98-107) mmol/L Carbon Dioxide 28 (22-30) mmol/L Anion Gap 9 mmol/L BUN 15 (7-17) mg/dL Creatinine 0.66 (0.52-1.04) mg/dL Est GFR (CKD-EPI)AfAm >90 (>60 ml/min/1.73 sqM) Est GFR (CKD-EPI)NonAf 88 (>60 ml/min/1.73 sqM) Glucose 103 H (74-99) mg/dL Plasma Lactic Acid Aditya (0.7-2.0) mmol/L Calcium 9.2 (8.4-10.2) mg/dL Total Bilirubin 0.7 (0.2-1.3) mg/dL AST 30 (14-36) U/L ALT 16 (4-34) U/L Alkaline Phosphatase 115 (38-126) U/L Total Protein 8.1 (6.3-8.2) g/dL Albumin 4.5 (3.5-5.0) g/dL Amylase 36 (30-110) U/L Lipase 40 (23-300) U/L Urine Color Light Yellow Urine Appearance Clear (Clear) Urine pH 7.0 (5.0-8.0) Ur Specific [place] 1.009 (1.001-1.035) Urine Protein Negative (Negative) Urine Glucose (UA) Negative (Negative) Urine Ketones Negative (Negative) Urine Blood Negative (Negative) Urine Nitrite Negative (Negative) Urine Bilirubin Negative (Negative) Urine Urobilinogen <2.0 (<2.0) mg/dL Ur Leukocyte Esterase Small H (Negative) Urine RBC <1 (0-5) /hpf Urine WBC 6 H (0-5) /hpf Ur Squamous Epith Cells 1 (0-4) /hpf 07/02/19 Range/Units 16:29 WBC (3.8-10.6) k/uL RBC (3.80-5.40) m/uL Hgb (11.4-16.0) gm/dL Hct (34.0-46.0) % MCV (80.0-100.0) fL MCH (25.0-35.0) pg MCHC (31.0-37.0) g/dL RDW (11.5-15.5) % Plt Count (150-450) k/uL Neutrophils % % Lymphocytes % % Monocytes % % Eosinophils % % Basophils % % Neutrophils # (1.3-7.7) k/uL Lymphocytes # (1.0-4.8) k/uL Monocytes # (0-1.0) k/uL Eosinophils # (0-0.7) k/uL Basophils # (0-0.2) k/uL Sodium (137-145) mmol/L Potassium (3.5-5.1) mmol/L Chloride (98-107) mmol/L Carbon Dioxide (22-30) mmol/L Anion Gap mmol/L BUN (7-17) mg/dL Creatinine (0.52-1.04) mg/dL Est GFR (CKD-EPI)AfAm (>60 ml/min/1.73 sqM) Est GFR (CKD-EPI)NonAf (>60 ml/min/1.73 sqM) Glucose (74-99) mg/dL Plasma Lactic Acid Aditya 0.7 (0.7-2.0) mmol/L Calcium (8.4-10.2) mg/dL Total Bilirubin (0.2-1.3) mg/dL AST (14-36) U/L ALT (4-34) U/L Alkaline Phosphatase (38-126) U/L Total Protein (6.3-8.2) g/dL Albumin (3.5-5.0) g/dL Amylase (30-110) U/L Lipase (23-300) U/L Urine Color Urine Appearance (Clear) Urine pH (5.0-8.0) Ur Specific [place] (1.001-1.035) Urine Protein (Negative) Urine Glucose (UA) (Negative) Urine Ketones (Negative) Urine Blood (Negative) Urine Nitrite (Negative) Urine Bilirubin (Negative) Urine Urobilinogen (<2.0) mg/dL Ur Leukocyte Esterase (Negative) Urine RBC (0-5) /hpf Urine WBC (0-5) /hpf Ur Squamous Epith Cells (0-4) /hpf Disposition Clinical Impression: Diverticulitis Disposition: HOME SELF-CARE Condition: Good Instructions (If sedation given, give patient instructions): Diverticulitis (ED) Additional Instructions: Please take Augmentin as directed. Take Zofran if this causes you nausea. Please follow-up with primary care in 1-2 days. Return to the emergency department if you have any worsening symptoms. Prescriptions: Amoxicillin/Potassium Clav [Augmentin 875-125 Tablet] 1 tab PO Q12HR #20 tab Ondansetron [Zofran ODT] 4 mg PO Q8HR PRN #15 tab PRN Reason: Nausea Is patient prescribed a controlled substance at d/c from ED?: No Referrals: Nish Trimble MD [Primary Care Provider] - 1-2 days Time of Disposition: 18:41
[2019-07-02 15:06] LABS: Appearance,Urine Clear (Clear); Bilirubin,Urine Negative (Negative); Blood,Urine Negative (Negative); Color,Urine Light Yellow; Glucose,Urine (UA) Negative (Negative); Ketones,Urine Negative (Negative); Leukocyte Esterase,Urine Small (Negative); Nitrite,Urine Negative (Negative); Protein,Urine Negative (Negative); RBC,Urine <1 /hpf (0-5); Specific Gravity,Urine 1.009 (1.001-1.035); Squamous Epithelial Cell,Urine 1 /hpf (0-4); Urobilinogen,Urine <2.0 mg/dL (<2.0); WBC,Urine 6 /hpf (0-5)
[2019-07-02 16:48] LABS: Basophils # (A) 0.1 k/uL (0-0.2); Basophils % (A) 1 %; Eosinophils # (A) 0.1 k/uL (0-0.7); Eosinophils % (A) 1 %; HCT 44.6 % (34.0-46.0); HGB 14.7 gm/dL (11.4-16.0); Lymphocytes # (A) 1.1 k/uL (1.0-4.8); Lymphocytes % (A) 8 %; MCH 31.2 pg (25.0-35.0); MCHC 32.9 g/dL (31.0-37.0); MCV 94.9 fL (80.0-100.0); Mean Platelet Volume 7.6; Monocytes # (A) 0.7 k/uL (0-1.0); Monocytes % (A) 6 %; Neutrophils # (A) 11.1 k/uL (1.3-7.7); Neutrophils % (A) 83 %; Platelet Count 214 k/uL (150-450); RDW 13.1 % (11.5-15.5); WBC 13.4 k/uL (3.8-10.6)
[2019-07-02 16:57] LABS: ALT 16 U/L (4-34); AST 30 U/L (14-36); African American GFR (CKD) >90 (>60 ml/min/1.73 sqM); Albumin 4.5 g/dL (3.5-5.0); Alkaline Phosphatase 115 U/L (38-126); Amylase 36 U/L (30-110); Anion Gap 9 mmol/L; Blood Urea Nitrogen 15 mg/dL (7-17); Calcium 9.2 mg/dL (8.4-10.2); Carbon Dioxide 28 mmol/L (22-30); Chloride 101 mmol/L (98-107); Glucose 103 mg/dL (74-99); Non-African American GFR(CKD) 88 (>60 ml/min/1.73 sqM); Potassium 4.2 mmol/L (3.5-5.1); Sodium 138 mmol/L (137-145); Total Bilirubin 0.7 mg/dL (0.2-1.3); Total Protein 8.1 g/dL (6.3-8.2)
--- NOTE | 2019-07-02 17:57 | CT ---
EXAMINATION TYPE: CT abdomen pelvis w con DATE OF EXAM: 07/02/2019 COMPARISON: 05/01/2013 HISTORY: Generalized pain with nausea. CT DLP: 896.9 mGycm Automated exposure control for dose reduction was used. CONTRAST: Performed with IV Contrast, patient injected with 100 mL of Isovue 300. Lung bases are clear of consolidation. There is no pleural effusion. Heart is borderline enlarged. Th ere is no pericardial effusion. Stomach is intact. Liver spleen pancreas appear normal. Bile ducts are not dilated. There are clips f rom cholecystectomy. There is no adrenal mass. Kidneys show satisfactory contrast opacification. Ther e is no hydronephrosis. Ureters are not dilated. There is no retroperitoneal adenopathy. Bladder dist ends smoothly. There is no inguinal hernia. There is mild free fluid in the pelvis. There are multiple sigmoid diverticula. There is sigmoid colon wall thickening in the pelvis on the l eft side adjacent to the uterus. There is minimal fat stranding. There is 3.5 cm cystic fluid collect ion on the right side of the pelvis that could be ovarian cyst. There is 1.5 cm cyst on the left ovar y. Appendix appears normal. There is no evidence of a bowel obstruction. There is no free air. Lumbar sp ine is intact. Uterus is anteverted. Bony pelvis appears intact. IMPRESSION: There is inflammatory changes and wall thickening involving the MID sigmoid colon. There is numerous sigmoid diverticula. Appearance is consistent with diverticulitis. There is mild free fluid in the cu l-de-sac consistent with inflammatory process. Bilateral ovarian cysts. Normal appendix. Diverticulitis appears new compared to old exam.
[2019-07-02] MEDS ORDERED: AMOXIC-POT CLAV 875MG STARTER 2 EACH TABLET PO STA (18:40)
[2019-07-02 18:53] VITALS: BP 148/78; PULSE 82
== END 2019-07-02 18:53 | disposition home or self-care (01) ==
LOC: EC 14:08
DX: K57.32 Diverticulitis of large intestine without perforation or abscess without bleeding (principal); N83.201 Unspecified ovarian cyst, right side; N83.202 Unspecified ovarian cyst, left side; E07.9 Disorder of thyroid, unspecified; I10 Essential (primary) hypertension; E78.5 Hyperlipidemia, unspecified; Z79.899 Other long term (current) drug therapy; Z88.6 Allergy status to analgesic agent; Z88.0 Allergy status to penicillin; Z88.1 Allergy status to other antibiotic agents; Z88.5 Allergy status to narcotic agent; Z88.8 Allergy status to other drugs, medicaments and biological substances; Z88.2 Allergy status to sulfonamides; Z90.49 Acquired absence of other specified parts of digestive tract
CPT/HCPCS: 36415; 80053; 82150; 83605; 83690; 85025; 81001; 87086; 74177; 99284; Q9967

== ENCOUNTER 2020-03-14 15:09 | Emergency (ER) | payer MEDICARE, OTHER ==
[2020-03-14 15:33] VITALS: BP 166/80; PULSE 72; RESP 16; TEMP 97.5
--- NOTE | 2020-03-14 15:39 | ED ---
General Adult HPI - General Chief complaint: Urogenital Stated complaint: UTI Time Seen by Provider: 03/14/20 15:36 Source: patient Mode of arrival: ambulatory Limitations: no limitations - History of Present Illness Initial comments: Patient presents the ED stating that she feels that she has a urinary tract infection. Patient states that she has had symptoms of "tugging" when she urinates since yesterday, and she also admits to having mild burning dysuria today. Patient denies having any other urinary symptoms or any other symptoms at all. Patient denies fever or chills, headache, chest pain, dyspnea, dizziness, abdominal pain, back or flank pain, nausea or vomiting, diarrhea, hematuria, urinary frequency, vaginal bleeding or discharge, or any other symptoms or complaints. Patient states that she has had multiple urinary infections in the past. - Related Data Home Medications Medication Instructions Recorded Confirmed Benazepril HCl 20 mg PO DAILY 02/24/14 07/30/18 Cholecalciferol [Vitamin D3] 2,000 unit PO BID 02/24/14 07/30/18 Cranberry Conc/C/Bacill Coag 2 tab PO TID 02/24/14 07/30/18 [Cranberry Tablet] Levothyroxine Sodium [Synthroid] 75 mcg PO DAILY 02/24/14 07/30/18 PHENobarbital 60 mg PO HS 02/24/14 07/30/18 Simvastatin [Zocor] 20 mg PO HS 02/24/14 07/30/18 Calcium Carbonate [Calcium] 600 mg PO BID 05/01/17 07/30/18 Carboxymethylcellulose Sodium 1 drop BOTH EYES DAILY 06/06/18 07/30/18 [Refresh Tears] amLODIPine [Norvasc] 10 mg PO DAILY 07/30/18 07/30/18 Previous Rx's Medication Instructions Recorded Famotidine [Pepcid] 20 mg PO BID #40 tablet 06/11/14 Amoxicillin/Potassium Clav 1 tab PO Q12HR #20 tab 07/02/19 [Augmentin 875-125 Tablet] Ondansetron [Zofran ODT] 4 mg PO Q8HR PRN #15 tab 07/02/19 Cephalexin [Keflex] 500 mg PO Q12HR 7 Days #14 cap 03/14/20 Allergies Allergy/AdvReac Type Severity Reaction Status Date / Time aspirin Allergy Unknown Verified 03/14/20 15:33 fexofenadine HCl Allergy Nausea & Verified 03/14/20 15:33 [From Little] Vomiting & Diarrhea Hydantoins Allergy Unknown Verified 03/14/20 15:33 levofloxacin [From Levaquin] Allergy Unknown Verified 03/14/20 15:33 nitrofurantoin Allergy Rash/Hives Verified 03/14/20 15:33 [From Macrobid] phenytoin sodium Allergy Rash/Hives Verified 03/14/20 15:33 [From Dilantin] sulfamethoxazole Allergy Rash/Hives Verified 03/14/20 15:33 [From Bactrim] trimethoprim Allergy Rash/Hives Verified 03/14/20 15:33 acetaminophen AdvReac Diarrhea Verified 03/14/20 15:33 [From Coricidin] amoxicillin [Amoxicillin] AdvReac Nausea & Verified 03/14/20 15:33 Vomiting & Diarrhea chlorpheniramine maleate AdvReac Diarrhea Verified 03/14/20 15:33 [From Coricidin] codeine AdvReac DIZZINESS Verified 03/14/20 15:33 phenylpropanolamine HCl AdvReac Diarrhea Verified 03/14/20 15:33 [From Coricidin] prednisone AdvReac Nausea & Verified 03/14/20 15:33 Vomiting & Diarrhea propoxyphene HCl AdvReac DIZZINESS Verified 03/14/20 15:33 [From Darvon] narcotic Allergy LETHARGIC/H Uncoded 03/14/20 15:33 EADACHES Review of Systems ROS Statement: Those systems with pertinent positive or pertinent negative responses have been documented in the HPI. ROS Other: All systems not noted in ROS Statement are negative. Past Medical History Past Medical History: GERD/Reflux, Hyperlipidemia, Hypertension, Seizure Disorder, Thyroid Disorder Additional Past Medical History / Comment(s): hx. colon polyps, >40 yrs. had seizures History of Any Multi-Drug Resistant Organisms: None Reported Past Surgical History: Cholecystectomy, Orthopedic Surgery Additional Past Surgical History / Comment(s): colonoscopy, hand surg. Past Anesthesia/Blood Transfusion Reactions: No Reported Reaction Past Psychological History: Anxiety, Depression Smoking Status: Never smoker Past Alcohol Use History: None Reported Past Drug Use History: None Reported - Past Family History Mother Family Medical History: Cancer Father History Unknown: Yes Sister(s) Family Medical History: Cancer Brother(s) History Unknown: Yes Son(s) Family Medical History: No Reported History Daughter(s) Additional Family Medical History / Comment(s): went without oxygen at General Exam Limitations: no limitations General appearance: alert, in no apparent distress Head exam: Present: atraumatic, normocephalic Eye exam: Present: normal appearance, EOMI ENT exam: Present: mucous membranes moist Neck exam: Present: other (Trachea is in midline) Respiratory exam: Present: normal lung sounds bilaterally. Absent: respiratory distress, wheezes, rales, rhonchi Cardiovascular Exam: Present: regular rate, normal rhythm, normal heart sounds, other (Normal radial pulses bilaterally) GI/Abdominal exam: Present: soft. Absent: distended, tenderness, guarding Back exam: Absent: CVA tenderness (R), CVA tenderness (L) Neurological exam: Present: alert, oriented X3. Absent: motor sensory deficit Psychiatric exam: Present: normal affect, normal mood Skin exam: Present: warm, dry, intact, normal color Course Vital Signs 03/14/20 15:30 Temperature 97.5 F L Pulse Rate 72 Respiratory 16 Rate Blood Pressure 166/80 O2 Sat by Pulse 100 Oximetry Medical Decision Making - Medical Decision Making Patient symptoms and UA findings are suggestive of UTI. Patient is afebrile. Patient's reported penicillin "allergy" reaction is nausea, vomiting and diarrhea. Patient was given a dose of PO Keflex in the ED without any reaction. Will discharge patient home with a prescription for a course of Keflex. Patient was counseled about UTIs and she was clearly explained return and follow-up instructions. Patient was instructed to follow up closely with her primary care provider. Patient feels comfortable with this plan. - Lab Data Lab Results 03/14/20 Range/Units 15:47 Urine Color Yellow Urine Appearance Turbid H (Clear) Urine pH 8.0 (5.0-8.0) Ur Specific [place] 1.017 (1.001-1.035) Urine Protein 1+ H (Negative) Urine Glucose (UA) Negative (Negative) Urine Ketones Negative (Negative) Urine Blood Moderate H (Negative) Urine Nitrite Negative (Negative) Urine Bilirubin Negative (Negative) Urine Urobilinogen <2.0 (<2.0) mg/dL Ur Leukocyte Esterase Large H (Negative) Urine RBC >182 H (0-5) /hpf Urine WBC >182 H (0-5) /hpf Urine WBC Clumps Occasional H (None) /hpf Ur Squamous Epith Cells 1 (0-4) /hpf Urine Mucus Rare H (None) /hpf Disposition Clinical Impression: Urinary tract infection Disposition: HOME SELF-CARE Condition: Stable Instructions (If sedation given, give patient instructions): Urinary Tract Infection in Women (ED) Additional Instructions: Return to the ER immediately should you develop a fever, any significant pain, vomiting, shortness of breath, feeling dizzy or faint, or new or worsening symptoms. Follow up closely with your primary care provider. Prescriptions: Cephalexin [Keflex] 500 mg PO Q12HR 7 Days #14 cap Is patient prescribed a controlled substance at d/c from ED?: No Referrals: Nish Trimbel MD [Primary Care Provider] - 1-2 days Time of Disposition: 17:05
[2020-03-14 16:29] LABS: Appearance,Urine Turbid (Clear); Bilirubin,Urine Negative (Negative); Blood,Urine Moderate (Negative); Color,Urine Yellow; Glucose,Urine (UA) Negative (Negative); Ketones,Urine Negative (Negative); Leukocyte Esterase,Urine Large (Negative); Mucus,Urine Rare /hpf; Nitrite,Urine Negative (Negative); Protein,Urine 1+ (Negative); RBC,Urine >182 /hpf (0-5); Specific Gravity,Urine 1.017 (1.001-1.035); Squamous Epithelial Cell,Urine 1 /hpf (0-4); Urobilinogen,Urine <2.0 mg/dL (<2.0); WBC,Urine >182 /hpf (0-5)
[2020-03-14] MEDS ORDERED: CEPHALEXIN 500 MG CAP PO STA (16:32)
== END 2020-03-14 17:11 | disposition home or self-care (01) ==
LOC: EC 15:09
DX: N39.0 Urinary tract infection, site not specified (principal); I10 Essential (primary) hypertension; E07.9 Disorder of thyroid, unspecified; E78.5 Hyperlipidemia, unspecified; K21.9 Gastro-esophageal reflux disease without esophagitis; G40.909 Epilepsy, unspecified, not intractable, without status epilepticus; Z79.890 Hormone replacement therapy; Z79.899 Other long term (current) drug therapy; Z88.6 Allergy status to analgesic agent; Z88.1 Allergy status to other antibiotic agents; Z88.2 Allergy status to sulfonamides; Z88.8 Allergy status to other drugs, medicaments and biological substances; Z88.0 Allergy status to penicillin; Z88.5 Allergy status to narcotic agent
CPT/HCPCS: 81001; 87086; 99283

== ENCOUNTER 2020-04-06 16:10 | Emergency (ER) | payer MEDICARE, OTHER ==
[2020-04-06] MEDS ORDERED: SODIUM CHLORIDE 0.9% 1,000 ML IV STA (16:44)
[2020-04-06 17:22] LABS: Appearance,Urine Clear (Clear); Bilirubin,Urine Negative (Negative); Blood,Urine Negative (Negative); Color,Urine Light Yellow; Glucose,Urine (UA) Negative (Negative); Ketones,Urine Negative (Negative); Leukocyte Esterase,Urine Trace (Negative); Nitrite,Urine Negative (Negative); PH, Urine 5.5 (5.0-8.0); Protein,Urine Negative (Negative); RBC,Urine 1 /hpf (0-5); Squamous Epithelial Cell,Urine <1 /hpf (0-4); Urobilinogen,Urine <2.0 mg/dL (<2.0); WBC,Urine 2 /hpf (0-5)
--- NOTE | 2020-04-06 17:25 | ED ---
Abdominal Pain HPI - General Chief Complaint: Abdominal Pain Stated Complaint: abd pain Time Seen by Provider: 04/06/20 16:44 Source: patient Mode of arrival: ambulatory Limitations: no limitations - History of Present Illness Initial Comments: 74-year-old female with history of HTN, HLD presenting today for chief complaint of lower abdominal pain. Patient states that she has left lower quadrant and right lower quadrant abdominal pain. She states it feels similar to when she's had diverticulitis in the past. Patient states that she has no diarrhea no constipation she denies any fevers nausea vomiting. Patient denies any dysuria urgency frequency hematuria or back pain denies radiation of the pain she states it is very sharp in nature. Patient denies chest pain shortness of breath or upper abdominal pain. Patient appears well and nontoxic able without difficulty on arrival. Patient denies current antibiotics use. Patient VS within acceptable limits on arrival. - Related Data Home Medications Medication Instructions Recorded Confirmed Benazepril HCl 20 mg PO DAILY 02/24/14 07/30/18 Cholecalciferol [Vitamin D3] 2,000 unit PO BID 02/24/14 07/30/18 Cranberry Conc/C/Bacill Coag 2 tab PO TID 02/24/14 07/30/18 [Cranberry Tablet] Levothyroxine Sodium [Synthroid] 75 mcg PO DAILY 02/24/14 07/30/18 PHENobarbital 60 mg PO HS 02/24/14 07/30/18 Simvastatin [Zocor] 20 mg PO HS 02/24/14 07/30/18 Calcium Carbonate [Calcium] 600 mg PO BID 05/01/17 07/30/18 Carboxymethylcellulose Sodium 1 drop BOTH EYES DAILY 06/06/18 07/30/18 [Refresh Tears] amLODIPine [Norvasc] 10 mg PO DAILY 07/30/18 07/30/18 Previous Rx's Medication Instructions Recorded Famotidine [Pepcid] 20 mg PO BID #40 tablet 06/11/14 Amoxicillin/Potassium Clav 1 tab PO Q12HR #20 tab 07/02/19 [Augmentin 875-125 Tablet] Ondansetron [Zofran ODT] 4 mg PO Q8HR PRN #15 tab 07/02/19 Cephalexin [Keflex] 500 mg PO Q12HR 7 Days #14 cap 03/14/20 Allergies Allergy/AdvReac Type Severity Reaction Status Date / Time aspirin Allergy Unknown Verified 04/06/20 16:22 fexofenadine HCl Allergy Nausea & Verified 04/06/20 16:22 [From Little] Vomiting & Diarrhea Hydantoins Allergy Unknown Verified 04/06/20 16:22 levofloxacin [From Levaquin] Allergy Unknown Verified 04/06/20 16:22 nitrofurantoin Allergy Rash/Hives Verified 04/06/20 16:22 [From Macrobid] phenytoin sodium Allergy Rash/Hives Verified 04/06/20 16:22 [From Dilantin] sulfamethoxazole Allergy Rash/Hives Verified 04/06/20 16:22 [From Bactrim] trimethoprim Allergy Rash/Hives Verified 04/06/20 16:22 acetaminophen AdvReac Diarrhea Verified 04/06/20 16:22 [From Coricidin] amoxicillin [Amoxicillin] AdvReac Nausea & Verified 04/06/20 16:22 Vomiting & Diarrhea chlorpheniramine maleate AdvReac Diarrhea Verified 04/06/20 16:22 [From Coricidin] codeine AdvReac DIZZINESS Verified 04/06/20 16:22 phenylpropanolamine HCl AdvReac Diarrhea Verified 04/06/20 16:22 [From Coricidin] prednisone AdvReac Nausea & Verified 04/06/20 16:22 Vomiting & Diarrhea propoxyphene HCl AdvReac DIZZINESS Verified 04/06/20 16:22 [From Darvon] narcotic Allergy LETHARGIC/H Uncoded 04/06/20 16:22 EADACHES Review of Systems ROS Statement: Those systems with pertinent positive or pertinent negative responses have been documented in the HPI. ROS Other: All systems not noted in ROS Statement are negative. Past Medical History Past Medical History: GERD/Reflux, Hyperlipidemia, Hypertension, Seizure Disorder, Thyroid Disorder Additional Past Medical History / Comment(s): hx. colon polyps, >40 yrs. had seizures History of Any Multi-Drug Resistant Organisms: None Reported Past Surgical History: Cholecystectomy, Orthopedic Surgery Additional Past Surgical History / Comment(s): colonoscopy, hand surg. Past Anesthesia/Blood Transfusion Reactions: No Reported Reaction Past Psychological History: Anxiety, Depression Smoking Status: Never smoker Past Alcohol Use History: None Reported Past Drug Use History: None Reported - Past Family History Mother Family Medical History: Cancer Father History Unknown: Yes Sister(s) Family Medical History: Cancer Brother(s) History Unknown: Yes Son(s) Family Medical History: No Reported History Daughter(s) Additional Family Medical History / Comment(s): went without oxygen at General Exam - General Exam Comments Initial Comments: General: The patient is awake and alert, in no distress Eye: +3 mm pupils are equal, round and reactive to light, extra-ocular movements are intact. No nystagmus. There is normal conjunctiva bilaterally. No signs of icterus. Ears, nose, mouth and throat: There are moist mucous membranes and no oral lesions. Neck: The neck is supple, there is no tenderness or JVD. Cardiovascular: There is a regular rate and rhythm. No murmur, rub or gallop is appreciated. Respiratory: Lungs are clear to auscultation, respirations are non-labored, breath sounds are equal. No wheezes, stridor, rales, or rhonchi. Gastrointestinal: Soft, non-distended, tender diffuse lower abdomen including the LLQ, abdomen without masses or organomegaly noted. There is no rebound or guarding present. Musculoskeletal: Normal ROM, no tenderness. Strength 5/5. Sensation intact. Radial pulses equal bilaterally 2+. Neurological: A&O x 3. CN II-XII intact grossly, There are no obvious motor or sensory deficits. Coordination appears grossly intact. Speech is normal. Skin: Skin is warm and dry and no rashes or lesions are noted. Psychiatric: Cooperative, appropriate mood & affect, normal judgment. Limitations: no limitations Course Vital Signs 04/06/20 16:20 Temperature 97.9 F Pulse Rate 70 Respiratory 18 Rate Blood Pressure 145/74 O2 Sat by Pulse 100 Oximetry Medical Decision Making - Medical Decision Making CT (-) for infection/acute process/masses. Patient labs stable. Patient VS within acceptable limits. Pt does have history of constipation she states on reevaluation. No evidence of infection of urine or urinary symptoms. patient is agreeable to monitoring symptoms at home following up with PCP and returning for worsening symptoms. Discussed case with Dr. Sanchez who is agreeable to care plan and discharge. - Lab Data Result diagrams: 04/06/20 17:04 04/06/20 17:04 Lab Results 04/06/20 04/06/20 04/06/20 Range/Units 17:04 17:04 17:04 WBC 9.6 (3.8-10.6) k/uL RBC 4.53 (3.80-5.40) m/uL Hgb 14.6 (11.4-16.0) gm/dL Hct 43.8 (34.0-46.0) % MCV 96.6 (80.0-100.0) fL MCH 32.2 (25.0-35.0) pg MCHC 33.3 (31.0-37.0) g/dL RDW 13.1 (11.5-15.5) % Plt Count 218 (150-450) k/uL Neutrophils % 68 % Lymphocytes % 22 % Monocytes % 6 % Eosinophils % 1 % Basophils % 1 % Neutrophils # 6.5 (1.3-7.7) k/uL Lymphocytes # 2.1 (1.0-4.8) k/uL Monocytes # 0.6 (0-1.0) k/uL Eosinophils # 0.1 (0-0.7) k/uL Basophils # 0.1 (0-0.2) k/uL Sodium 135 L (137-145) mmol/L Potassium 5.2 H (3.5-5.1) mmol/L Chloride 102 (98-107) mmol/L Carbon Dioxide 25 (22-30) mmol/L Anion Gap 8 mmol/L BUN 15 (7-17) mg/dL Creatinine 0.78 (0.52-1.04) mg/dL Est GFR (CKD-EPI)AfAm 88 (>60 ml/min/1.73 sqM) Est GFR (CKD-EPI)NonAf 76 (>60 ml/min/1.73 sqM) Glucose 114 H (74-99) mg/dL Calcium 9.5 (8.4-10.2) mg/dL Total Bilirubin 0.8 (0.2-1.3) mg/dL AST 42 H (14-36) U/L ALT 18 (4-34) U/L Alkaline Phosphatase 112 (38-126) U/L Total Protein 8.5 H (6.3-8.2) g/dL Albumin 4.8 (3.5-5.0) g/dL Amylase 44 (30-110) U/L Lipase 73 (23-300) U/L Urine Color Light Yellow Urine Appearance Clear (Clear) Urine pH 5.5 (5.0-8.0) Ur Specific [place] 1.010 (1.001-1.035) Urine Protein Negative (Negative) Urine Glucose (UA) Negative (Negative) Urine Ketones Negative (Negative) Urine Blood Negative (Negative) Urine Nitrite Negative (Negative) Urine Bilirubin Negative (Negative) Urine Urobilinogen <2.0 (<2.0) mg/dL Ur Leukocyte Esterase Trace H (Negative) Urine RBC 1 (0-5) /hpf Urine WBC 2 (0-5) /hpf Ur Squamous Epith Cells <1 (0-4) /hpf Disposition Clinical Impression: Lower abdominal pain, Diverticulosis Disposition: HOME SELF-CARE Condition: Good Instructions (If sedation given, give patient instructions): Abdominal Pain (ED) Additional Instructions: Please use medication as discussed. Please follow-up with family doctor in the next 2 days. Please return to emergency room if the symptoms increase or worsen or for any other concerns. Is patient prescribed a controlled substance at d/c from ED?: No Referrals: Nish Trimble MD [Primary Care Provider] - 1-2 days Time of Disposition: 19:42
[2020-04-06 17:39] LABS: Basophils # (A) 0.1 k/uL (0-0.2); Basophils % (A) 1 %; Eosinophils # (A) 0.1 k/uL (0-0.7); Eosinophils % (A) 1 %; HCT 43.8 % (34.0-46.0); HGB 14.6 gm/dL (11.4-16.0); Lymphocytes # (A) 2.1 k/uL (1.0-4.8); Lymphocytes % (A) 22 %; MCH 32.2 pg (25.0-35.0); MCHC 33.3 g/dL (31.0-37.0); MCV 96.6 fL (80.0-100.0); Mean Platelet Volume 7.4; Monocytes # (A) 0.6 k/uL (0-1.0); Monocytes % (A) 6 %; Neutrophils # (A) 6.5 k/uL (1.3-7.7); Neutrophils % (A) 68 %; Platelet Count 218 k/uL (150-450); RBC 4.53 m/uL (3.80-5.40); RDW 13.1 % (11.5-15.5); WBC 9.6 k/uL (3.8-10.6)
[2020-04-06 18:02] LABS: Albumin 4.8 g/dL (3.5-5.0); Calcium 9.5 mg/dL (8.4-10.2); Potassium 5.2 mmol/L (3.5-5.1); Total Bilirubin 0.8 mg/dL (0.2-1.3); Total Protein 8.5 g/dL (6.3-8.2)
--- NOTE | 2020-04-06 19:39 | CT ---
EXAMINATION TYPE: CT abdomen pelvis w con DATE OF EXAM: 04/06/2020 COMPARISON: 07/02/2019 HISTORY: DIVERTICULITIS Abdominal pain CT DLP: 830.6 mGycm Automated exposure control for dose reduction was used. CONTRAST: Performed with IV Contrast, patient injected with 100 mL of Isovue 300. Images obtained from the diaphragm to the floor the pelvis with IV contrast. FINDINGS: Lung bases are clear of consolidation. There is minimal subsegmental atelectasis left lung base. Hear t appears slightly enlarged. There is no pericardial effusion. There is no pleural effusion. There are clips from cholecystectomy. Liver spleen stomach appear normal. Bile ducts are not dilated. There is pancreatic atrophy. There is no evidence of pancreatic mass. There is no adrenal mass. Kidneys have normal size. There is no hydronephrosis. Ureters are not dilat ed. There is no retroperitoneal adenopathy. Bladder distends smoothly. There is no inguinal hernia. T here is no free fluid in the pelvis. There are multiple sigmoid diverticula. There is no sign of dive rticulitis. Appendix is medial and appears normal. There is no mesenteric edema. There is no ascites or free air. There is 3.7 cm cyst on the right ovar y. Lumbar vertebra have normal alignment. There is no compression fracture. Bony pelvis is intact. Hip j oints are intact. I see no bony destructive process. IMPRESSION: There is sigmoid diverticulosis without diverticulitis. Normal appendix. There is clearing of the inf lammatory changes around the mid sigmoid colon compared to old exam.
[2020-04-06 19:55] VITALS: BP 164/84; PULSE 64; RESP 20; TEMP 97.8
== END 2020-04-06 19:55 | disposition home or self-care (01) ==
LOC: EC 16:10
DX: K57.30 Diverticulosis of large intestine without perforation or abscess without bleeding (principal); K21.9 Gastro-esophageal reflux disease without esophagitis; E78.5 Hyperlipidemia, unspecified; I10 Essential (primary) hypertension; E07.9 Disorder of thyroid, unspecified; G40.909 Epilepsy, unspecified, not intractable, without status epilepticus; Z79.890 Hormone replacement therapy; Z79.899 Other long term (current) drug therapy; Z88.0 Allergy status to penicillin; Z88.2 Allergy status to sulfonamides; Z88.5 Allergy status to narcotic agent; Z88.6 Allergy status to analgesic agent; Z88.8 Allergy status to other drugs, medicaments and biological substances
CPT/HCPCS: 36415; 80053; 82150; 83690; 85025; 81001; 74177; 99284; 96360; 96361; Q9967

== ENCOUNTER 2020-04-08 00:52 | Emergency (ER) | payer MEDICARE, OTHER ==
[2020-04-08 00:58] VITALS: RESP 18
[2020-04-08] MEDS ORDERED: SODIUM CHLORIDE 0.9% 1,000 ML IV STA (01:25)
[2020-04-08] MEDS ORDERED: PANTOPRAZOLE 40 MG/10 ML VIAL IVP STA (01:25)
[2020-04-08] MEDS ORDERED: DICYCLOMINE 10 MG CAP PO STA (01:26)
--- NOTE | 2020-04-08 01:26 | ED ---
Abdominal Pain HPI - General Chief Complaint: Abdominal Pain Stated Complaint: lower Abdominal Pain Time Seen by Provider: 04/08/20 01:00 Source: patient Mode of arrival: ambulatory Limitations: no limitations - History of Present Illness Initial Comments: Patient is 74-year-old female presenting to the emergency department chief complaint abdominal pain. Patient states her symptoms began about 3 days ago in the lower abdominal region and not continue to be persistent. Patient reports the pain is sharp in nature. States she feels some abdominal cramping particularly when passing gas. She also reports having mucousy stools ever since the onset of symptoms. She states that she was recently evaluated in the emergency department and was discharged with no significant improvement in symptoms. She denies hematuria, hematochezia or melena. Denies any urinary or vaginal symptoms. Denies any radiation of the abdominal pain. Denies any chest pain or shortness of breath. Denies any vaginal bleeding, discharge or foul smell. Denies any night sweats or chills. She does report history of diverticulitis and gastritis. Surgical history of cholecystectomy. - Related Data Home Medications Medication Instructions Recorded Confirmed Benazepril HCl 20 mg PO DAILY 02/24/14 07/30/18 Cholecalciferol [Vitamin D3] 2,000 unit PO BID 02/24/14 07/30/18 Cranberry Conc/C/Bacill Coag 2 tab PO TID 02/24/14 07/30/18 [Cranberry Tablet] Levothyroxine Sodium [Synthroid] 75 mcg PO DAILY 02/24/14 07/30/18 PHENobarbital 60 mg PO HS 02/24/14 07/30/18 Simvastatin [Zocor] 20 mg PO HS 02/24/14 07/30/18 Calcium Carbonate [Calcium] 600 mg PO BID 05/01/17 07/30/18 Carboxymethylcellulose Sodium 1 drop BOTH EYES DAILY 06/06/18 07/30/18 [Refresh Tears] amLODIPine [Norvasc] 10 mg PO DAILY 07/30/18 07/30/18 Previous Rx's Medication Instructions Recorded Famotidine [Pepcid] 20 mg PO BID #40 tablet 06/11/14 Amoxicillin/Potassium Clav 1 tab PO Q12HR #20 tab 07/02/19 [Augmentin 875-125 Tablet] Ondansetron [Zofran ODT] 4 mg PO Q8HR PRN #15 tab 01/21/20 Cephalexin [Keflex] 500 mg PO Q12HR 7 Days #14 cap 03/14/20 Allergies Allergy/AdvReac Type Severity Reaction Status Date / Time aspirin Allergy Unknown Verified 04/08/20 00:58 fexofenadine HCl Allergy Nausea & Verified 04/08/20 00:58 [From Little] Vomiting & Diarrhea Hydantoins Allergy Unknown Verified 04/08/20 00:58 levofloxacin [From Levaquin] Allergy Unknown Verified 04/08/20 00:58 nitrofurantoin Allergy Rash/Hives Verified 04/08/20 00:58 [From Macrobid] phenytoin sodium Allergy Rash/Hives Verified 04/08/20 00:58 [From Dilantin] sulfamethoxazole Allergy Rash/Hives Verified 04/08/20 00:58 [From Bactrim] tetracycline Allergy Unknown Verified 04/08/20 00:58 trimethoprim Allergy Rash/Hives Verified 04/08/20 00:58 acetaminophen AdvReac Diarrhea Verified 04/08/20 00:58 [From Coricidin] amoxicillin [Amoxicillin] AdvReac Nausea & Verified 04/08/20 00:58 Vomiting & Diarrhea chlorpheniramine maleate AdvReac Diarrhea Verified 04/08/20 00:58 [From Coricidin] codeine AdvReac DIZZINESS Verified 04/08/20 00:58 phenylpropanolamine HCl AdvReac Diarrhea Verified 04/08/20 00:58 [From Coricidin] prednisone AdvReac Nausea & Verified 04/08/20 00:58 Vomiting & Diarrhea propoxyphene HCl AdvReac DIZZINESS Verified 04/08/20 00:58 [From Darvon] narcotic Allergy LETHARGIC/H Uncoded 04/08/20 00:58 EADACHES Review of Systems ROS Statement: Those systems with pertinent positive or pertinent negative responses have been documented in the HPI. ROS Other: All systems not noted in ROS Statement are negative. Past Medical History Past Medical History: GERD/Reflux, Hyperlipidemia, Hypertension, Seizure Disorder, Thyroid Disorder Additional Past Medical History / Comment(s): hx. colon polyps, >40 yrs. had sei zures History of Any Multi-Drug Resistant Organisms: None Reported Past Surgical History: Cholecystectomy, Orthopedic Surgery Additional Past Surgical History / Comment(s): colonoscopy, hand surg. Past Anesthesia/Blood Transfusion Reactions: No Reported Reaction Past Psychological History: Anxiety, Depression Smoking Status: Never smoker Past Alcohol Use History: None Reported Past Drug Use History: None Reported - Past Family History Mother Family Medical History: Cancer Father History Unknown: Yes Sister(s) Family Medical History: Cancer Brother(s) History Unknown: Yes Son(s) Family Medical History: No Reported History Daughter(s) Additional Family Medical History / Comment(s): went without oxygen at General Exam Limitations: no limitations General appearance: alert, in no apparent distress Head exam: Present: atraumatic, normocephalic, normal inspection Eye exam: Present: normal appearance, PERRL, EOMI Pupils: Present: normal accommodation ENT exam: Present: normal exam, normal oropharynx, mucous membranes moist, TM's normal bilaterally, normal external ear exam Neck exam: Present: normal inspection, full ROM. Absent: tenderness Respiratory exam: Present: normal lung sounds bilaterally. Absent: respiratory distress, wheezes, rales Cardiovascular Exam: Present: regular rate, normal rhythm, normal heart sounds GI/Abdominal exam: Present: soft, tenderness (Mild to moderate suprapubic abdominal pain.). Absent: distended, guarding, rebound, rigid Extremities exam: Present: normal inspection, full ROM, normal capillary refill. Absent: tenderness Back exam: Present: normal inspection, full ROM. Absent: tenderness, CVA tenderness (R), CVA tenderness (L) Neurological exam: Present: alert, oriented X3 Psychiatric exam: Present: normal affect, normal mood Skin exam: Present: warm, dry, intact, normal color. Absent: rash Course Vital Signs 04/08/20 04/08/20 04/08/20 00:55 02:07 03:27 Temperature 97 F L 97.1 F L Pulse Rate 69 59 L 59 L Respiratory 18 18 18 Rate Blood Pressure 188/82 173/71 175/72 O2 Sat by Pulse 98 97 97 Oximetry - Reevaluation(s) Reevaluation #1: 04/08/20 04:47 Medical record reviewed Medical Decision Making - Medical Decision Making Patient is 74-year-old female presenting to the emergency department with chief complaint of abdominal pain. On physical examination, patient does have lower abdominal pain, mild to moderate. Patient was given IV fluids, Protonix and by mouth Bentyl. CBC, CMP and UA are unremarkable. EKG showing sinus bradycardia with Q waves and inverted T waves in lead 3. Similar EKG to 07/30/18. On reevaluation, patient reports improvement in symptoms. CT of abdomen and pelvis was performed 3 days ago showing no acute processes. A decision was made not to have a repeat CT. initial troponin is negative. Strict return parameters were thoroughly discussed the patient is understanding and agreeable. She was advised to follow-up with a GI specialist. Case discussed with physician. - Lab Data Result diagrams: 04/08/20:04/08/20: Lab Results 04/08/20 04/08/20 04/08/20 Range/Units :09 07:09 07: WBC 10.4 (3.8-10.6) k/uL RBC 4.56 (3.80-5.40) m/uL Hgb 14.7 (11.4-16.0) gm/dL Hct 44.0 (34.0-46.0) % MCV 96.5 (80.0-100.0) fL MCH 32.3 (25.0-35.0) pg MCHC 33.5 (31.0-37.0) g/dL RDW 13.2 (11.5-15.5) % Plt Count 195 (150-450) k/uL Neutrophils % 70 % Lymphocytes % 19 % Monocytes % 7 % Eosinophils % 1 % Basophils % 1 % Neutrophils # 7.3 (1.3-7.7) k/uL Lymphocytes # 1.9 (1.0-4.8) k/uL Monocytes # 0.8 (0-1.0) k/uL Eosinophils # 0.1 (0-0.7) k/uL Basophils # 0.1 (0-0.2) k/uL Sodium 135 L (137-145) mmol/L Potassium 4.6 (3.5-5.1) mmol/L Chloride 101 (98-107) mmol/L Carbon Dioxide 26 (22-30) mmol/L Anion Gap 8 mmol/L BUN 16 (7-17) mg/dL Creatinine 0.70 (0.52-1.04) mg/dL Est GFR (CKD-EPI)AfAm >90 (>60 ml/min/1.73 sqM) Est GFR (CKD-EPI)NonAf 86 (>60 ml/min/1.73 sqM) Glucose 100 H (74-99) mg/dL Calcium 9.7 (8.4-10.2) mg/dL Total Bilirubin 0.7 (0.2-1.3) mg/dL AST 34 (14-36) U/L ALT 17 (4-34) U/L Alkaline Phosphatase 109 (38-126) U/L Troponin I (0.000-0.034) ng/mL Total Protein 8.3 H (6.3-8.2) g/dL Albumin 4.6 (3.5-5.0) g/dL Lipase 76 (23-300) U/L Urine Color Colorless Urine Appearance Clear (Clear) Urine pH 6.5 (5.0-8.0) Ur Specific [place] 1.006 (1.001-1.035) Urine Protein Negative (Negative) Urine Glucose (UA) Negative (Negative) Urine Ketones Negative (Negative) Urine Blood Negative (Negative) Urine Nitrite Negative (Negative) Urine Bilirubin Negative (Negative) Urine Urobilinogen <2.0 (<2.0) mg/dL Ur Leukocyte Esterase Moderate H (Negative) Urine WBC 5 (0-5) /hpf Urine WBC Clumps Rare H (None) /hpf Ur Squamous Epith Cells 1 (0-4) /hpf 28/20 Range/Units 01:28 WBC (3.8-10.6) k/uL RBC (3.80-5.40) m/uL Hgb (11.4-16.0) gm/dL Hct (34.0-46.0) % MCV (80.0-100.0) fL MCH (25.0-35.0) pg MCHC (31.0-37.0) g/dL RDW (11.5-15.5) % Plt Count (150-450) k/uL Neutrophils % % Lymphocytes % % Monocytes % % Eosinophils % % Basophils % % Neutrophils # (1.3-7.7) k/uL Lymphocytes # (1.0-4.8) k/uL Monocytes # (0-1.0) k/uL Eosinophils # (0-0.7) k/uL Basophils # (0-0.2) k/uL Sodium (137-145) mmol/L Potassium (3.5-5.1) mmol/L Chloride (98-107) mmol/L Carbon Dioxide (22-30) mmol/L Anion Gap mmol/L BUN (7-17) mg/dL Creatinine (0.52-1.04) mg/dL Est GFR (CKD-EPI)AfAm (>60 ml/min/1.73 sqM) Est GFR (CKD-EPI)NonAf (>60 ml/min/1.73 sqM) Glucose (74-99) mg/dL Calcium (8.4-10.2) mg/dL Total Bilirubin (0.2-1.3) mg/dL AST (14-36) U/L ALT (4-34) U/L Alkaline Phosphatase (38-126) U/L Troponin I <0.012 (0.000-0.034) ng/mL Total Protein (6.3-8.2) g/dL Albumin (3.5-5.0) g/dL Lipase (23-300) U/L Urine Color Urine Appearance (Clear) Urine pH (5.0-8.0) Ur Specific [place] (1.001-1.035) Urine Protein (Negative) Urine Glucose (UA) (Negative) Urine Ketones (Negative) Urine Blood (Negative) Urine Nitrite (Negative) Urine Bilirubin (Negative) Urine Urobilinogen (<2.0) mg/dL Ur Leukocyte Esterase (Negative) Urine WBC (0-5) /hpf Urine WBC Clumps (None) /hpf Ur Squamous Epith Cells (0-4) /hpf Disposition Clinical Impression: Lower abdominal pain, Diverticulosis Disposition: HOME SELF-CARE Condition: Stable Instructions (If sedation given, give patient instructions): Abdominal Pain ( ED) Additional Instructions: Follow-up with a GI specialist. Return to emergency department if symptoms worsen. Is patient prescribed a controlled substance at d/c from ED?: No Referrals: Nish Trimble MD [Primary Care Provider] - 1-2 days Suri Morin MD [STAFF PHYSICIAN] - 1-2 days Time of Disposition: 03:09
[2020-04-08 01:51] LABS: Basophils # (A) 0.1 k/uL (0-0.2); Basophils % (A) 1 %; Eosinophils # (A) 0.1 k/uL (0-0.7); Eosinophils % (A) 1 %; HGB 14.7 gm/dL (11.4-16.0); Lymphocytes # (A) 1.9 k/uL (1.0-4.8); Lymphocytes % (A) 19 %; MCH 32.3 pg (25.0-35.0); MCHC 33.5 g/dL (31.0-37.0); MCV 96.5 fL (80.0-100.0); Mean Platelet Volume 7.5; Monocytes # (A) 0.8 k/uL (0-1.0); Monocytes % (A) 7 %; Neutrophils # (A) 7.3 k/uL (1.3-7.7); Neutrophils % (A) 70 %; Platelet Count 195 k/uL (150-450); RBC 4.56 m/uL (3.80-5.40); RDW 13.2 % (11.5-15.5); WBC 10.4 k/uL (3.8-10.6)
[2020-04-08 02:10] VITALS: PULSE 59; TEMP 97.1
[2020-04-08 02:18] LABS: Appearance,Urine Clear (Clear); Bilirubin,Urine Negative (Negative); Blood,Urine Negative (Negative); Color,Urine Colorless; Glucose,Urine (UA) Negative (Negative); Ketones,Urine Negative (Negative); Leukocyte Esterase,Urine Moderate (Negative); Nitrite,Urine Negative (Negative); PH, Urine 6.5 (5.0-8.0); Protein,Urine Negative (Negative); Specific Gravity,Urine 1.006 (1.001-1.035); Squamous Epithelial Cell,Urine 1 /hpf (0-4); Urobilinogen,Urine <2.0 mg/dL (<2.0); WBC,Urine 5 /hpf (0-5)
[2020-04-08 02:25] LABS: ALT 17 U/L (4-34); AST 34 U/L (14-36); African American GFR (CKD) >90 (>60 ml/min/1.73 sqM); Albumin 4.6 g/dL (3.5-5.0); Alkaline Phosphatase 109 U/L (38-126); Anion Gap 8 mmol/L; Blood Urea Nitrogen 16 mg/dL (7-17); Calcium 9.7 mg/dL (8.4-10.2); Carbon Dioxide 26 mmol/L (22-30); Chloride 101 mmol/L (98-107); Glucose 100 mg/dL (74-99); Lipase 76 U/L (23-300); Non-African American GFR(CKD) 86 (>60 ml/min/1.73 sqM); Potassium 4.6 mmol/L (3.5-5.1); Sodium 135 mmol/L (137-145); Total Bilirubin 0.7 mg/dL (0.2-1.3); Total Protein 8.3 g/dL (6.3-8.2)
[2020-04-08 03:28] VITALS: BP 175/72
== END 2020-04-08 03:43 | disposition home or self-care (01) ==
LOC: EC 00:52
DX: K57.90 Diverticulosis of intestine, part unspecified, without perforation or abscess without bleeding (principal); K21.9 Gastro-esophageal reflux disease without esophagitis; E78.5 Hyperlipidemia, unspecified; I10 Essential (primary) hypertension; E07.9 Disorder of thyroid, unspecified; G40.909 Epilepsy, unspecified, not intractable, without status epilepticus; F41.9 Anxiety disorder, unspecified; F32.9 Major depressive disorder, single episode, unspecified; Z79.890 Hormone replacement therapy; Z79.899 Other long term (current) drug therapy; Z88.0 Allergy status to penicillin; Z88.1 Allergy status to other antibiotic agents; Z88.2 Allergy status to sulfonamides; Z88.5 Allergy status to narcotic agent; Z88.6 Allergy status to analgesic agent; Z88.8 Allergy status to other drugs, medicaments and biological substances; Z90.49 Acquired absence of other specified parts of digestive tract
CPT/HCPCS: 36415; 93005; 80053; 83690; 84484; 85025; 81001; 99284; 96374; 96361; C9113

== ENCOUNTER 2020-11-01 18:33 | Emergency (ER) | payer MEDICARE, OTHER ==
--- NOTE | 2020-11-01 18:54 | ED ---
General Adult HPI - General Chief complaint: Abdominal Pain Stated complaint: Possible UTI Time Seen by Provider: 11/01/20 18:45 Source: patient Mode of arrival: ambulatory Limitations: no limitations - History of Present Illness Initial comments: Patient presents to the ED with her friend stating "I think have another bladder infection". Patient states that she has had symptoms of dysuria, urinary frequency and urinary urgency for the past 2 days. Patient states that she has had similar symptoms with her bladder infections in the past. Patient denies having any abdominal pain to me. Patient denies fever or chills, headache, chest pain, dyspnea, dizziness, abdominal pain, back or flank pain, nausea or vomiting, diarrhea, hematuria, vaginal bleeding or discharge, or any other symptoms or complaints. - Related Data Home Medications Medication Instructions Recorded Confirmed Benazepril HCl 20 mg PO DAILY 02/24/14 07/30/18 Cholecalciferol [Vitamin D3] 2,000 unit PO BID 02/24/14 07/30/18 Cranberry Conc/C/Bacill Coag 2 tab PO TID 02/24/14 07/30/18 [Cranberry Tablet] Levothyroxine Sodium [Synthroid] 75 mcg PO DAILY 02/24/14 07/30/18 PHENobarbital 60 mg PO HS 02/24/14 07/30/18 Simvastatin [Zocor] 20 mg PO HS 02/24/14 07/30/18 Calcium Carbonate [Calcium] 600 mg PO BID 05/01/17 07/30/18 Carboxymethylcellulose Sodium 1 drop BOTH EYES DAILY 06/06/18 07/30/18 [Refresh Tears] amLODIPine [Norvasc] 10 mg PO DAILY 07/30/18 07/30/18 Previous Rx's Medication Instructions Recorded Famotidine [Pepcid] 20 mg PO BID #40 tablet 06/11/14 Amoxicillin/Potassium Clav 1 tab PO Q12HR #20 tab 07/02/19 [Augmentin 875-125 Tablet] Ondansetron [Zofran ODT] 4 mg PO Q8HR PRN #15 tab 07/02/19 Cephalexin [Keflex] 500 mg PO Q12HR 7 Days #14 cap 03/14/20 Cephalexin [Keflex] 500 mg PO BID 7 Days #14 cap 11/01/20 Allergies Allergy/AdvReac Type Severity Reaction Status Date / Time aspirin Allergy Unknown Verified 11/01/20 18:39 fexofenadine HCl Allergy Nausea & Verified 11/01/20 18:39 [From Little] Vomiting & Diarrhea Hydantoins Allergy Unknown Verified 11/01/20 18:39 levofloxacin [From Levaquin] Allergy Unknown Verified 11/01/20 18:39 nitrofurantoin Allergy Rash/Hives Verified 11/01/20 18:39 [From Macrobid] phenytoin sodium Allergy Rash/Hives Verified 11/01/20 18:39 [From Dilantin] sulfamethoxazole Allergy Rash/Hives Verified 11/01/20 18:39 [From Bactrim] tetracycline Allergy Unknown Verified 11/01/20 18:39 trimethoprim Allergy Rash/Hives Verified 11/01/20 18:39 acetaminophen AdvReac Diarrhea Verified 11/01/20 18:39 [From Coricidin] amoxicillin [Amoxicillin] AdvReac Nausea & Verified 11/01/20 18:39 Vomiting & Diarrhea chlorpheniramine maleate AdvReac Diarrhea Verified 11/01/20 18:39 [From Coricidin] codeine AdvReac DIZZINESS Verified 11/01/20 18:39 phenylpropanolamine HCl AdvReac Diarrhea Verified 11/01/20 18:39 [From Coricidin] prednisone AdvReac Nausea & Verified 11/01/20 18:39 Vomiting & Diarrhea propoxyphene HCl AdvReac DIZZINESS Verified 11/01/20 18:39 [From Darvon] narcotic Allergy LETHARGIC/H Uncoded 11/01/20 18:39 EADACHES Review of Systems ROS Statement: Those systems with pertinent positive or pertinent negative responses have been documented in the HPI. ROS Other: All systems not noted in ROS Statement are negative. Past Medical History Past Medical History: GERD/Reflux, Hyperlipidemia, Hypertension, Seizure Disorder, Thyroid Disorder Additional Past Medical History / Comment(s): hx. colon polyps, >40 yrs. had seizures History of Any Multi-Drug Resistant Organisms: None Reported Past Surgical History: Cholecystectomy, Orthopedic Surgery Additional Past Surgical History / Comment(s): colonoscopy, hand surg. Past Anesthesia/Blood Transfusion Reactions: No Reported Reaction Past Psychological History: Anxiety, Depression Smoking Status: Never smoker Past Alcohol Use History: None Reported Past Drug Use History: None Reported - Past Family History Mother Family Medical History: Cancer Father History Unknown: Yes Sister(s) Family Medical History: Cancer Brother(s) History Unknown: Yes Son(s) Family Medical History: No Reported History Daughter(s) Additional Family Medical History / Comment(s): went without oxygen at General Exam Limitations: no limitations General appearance: alert, in no apparent distress Head exam: Present: atraumatic, normocephalic Eye exam: Present: normal appearance, EOMI ENT exam: Present: mucous membranes moist Neck exam: Present: other (Trachea is in midline) Respiratory exam: Present: normal lung sounds bilaterally. Absent: respiratory distress, wheezes, rales, rhonchi, stridor Cardiovascular Exam: Present: regular rate, normal rhythm, normal heart sounds, other (Normal radial pulses bilaterally) GI/Abdominal exam: Present: soft. Absent: distended, tenderness, guarding Back exam: Absent: CVA tenderness (R), CVA tenderness (L) Neurological exam: Present: alert, oriented X3. Absent: motor sensory deficit Psychiatric exam: Present: normal affect, normal mood Skin exam: Present: warm, dry, intact, normal color Course Vital Signs 11/01/20 18:35 Temperature 97.7 F Pulse Rate 66 Respiratory 20 Rate Blood Pressure 162/79 O2 Sat by Pulse 96 Oximetry Medical Decision Making - Medical Decision Making Patient's history/symptoms and UA findings are suggestive of UTI. Patient was given a dose of oral Keflex in the ED, and all discharge patient home with a prescription for a course of Keflex. Patient was counseled about UTIs, and she was clearly explained return and follow-up instructions. Patient feels comfortable with this plan. - Lab Data Lab Results 11/01/20 Range/Units 18:54 Urine Color Light Yellow Urine Appearance Cloudy H (Clear) Urine pH 6.0 (5.0-8.0) Ur Specific [place] 1.010 (1.001-1.035) Urine Protein Negative (Negative) Urine Glucose (UA) Negative (Negative) Urine Ketones Negative (Negative) Urine Blood Trace H (Negative) Urine Nitrite Negative (Negative) Urine Bilirubin Negative (Negative) Urine Urobilinogen <2.0 (<2.0) mg/dL Ur Leukocyte Esterase Large H (Negative) Urine RBC 1 (0-5) /hpf Urine WBC >182 H (0-5) /hpf Ur Squamous Epith Cells 1 (0-4) /hpf Disposition Clinical Impression: UTI (urinary tract infection) Disposition: HOME SELF-CARE Condition: Stable Instructions (If sedation given, give patient instructions): Urinary Tract Infection in Women (ED) Additional Instructions: Return to the ER immediately should you develop any significant pain, a fever, vomiting, feeling dizzy or faint, shortness of breath, or new or worsening symptoms. Follow up closely with your primary care provider. Prescriptions: Cephalexin [Keflex] 500 mg PO BID 7 Days #14 cap Is patient prescribed a controlled substance at d/c from ED?: No Referrals: Nish Trimble MD [Primary Care Provider] - 1-2 days Time of Disposition: 19:27
[2020-11-01 19:18] LABS: Appearance,Urine Cloudy (Clear); Bilirubin,Urine Negative (Negative); Blood,Urine Trace (Negative); Color,Urine Light Yellow; Glucose,Urine (UA) Negative (Negative); Ketones,Urine Negative (Negative); Leukocyte Esterase,Urine Large (Negative); Nitrite,Urine Negative (Negative); Protein,Urine Negative (Negative); RBC,Urine 1 /hpf (0-5); Squamous Epithelial Cell,Urine 1 /hpf (0-4); Urobilinogen,Urine <2.0 mg/dL (<2.0); WBC,Urine >182 /hpf (0-5)
[2020-11-01] MEDS ORDERED: CEPHALEXIN 500 MG CAP PO STA (19:24)
[2020-11-01 19:52] VITALS: BP 174/74; PULSE 59; RESP 16; TEMP 98.4
== END 2020-11-01 19:52 | disposition home or self-care (01) ==
LOC: EC 18:33
DX: N39.0 Urinary tract infection, site not specified (principal); K21.9 Gastro-esophageal reflux disease without esophagitis; E78.5 Hyperlipidemia, unspecified; I10 Essential (primary) hypertension; G40.909 Epilepsy, unspecified, not intractable, without status epilepticus; Z87.19 Personal history of other diseases of the digestive system; F41.9 Anxiety disorder, unspecified; F32.9 Major depressive disorder, single episode, unspecified; Z90.49 Acquired absence of other specified parts of digestive tract
CPT/HCPCS: 81001; 87086; 99283

== ENCOUNTER 2020-12-01 14:24 | Emergency (ER) | payer MEDICARE, OTHER ==
[2020-12-01 15:15] LABS: Appearance,Urine Cloudy (Clear); Bacteria,Urine Occasional /hpf; Bilirubin,Urine Negative (Negative); Blood,Urine Moderate (Negative); Budding Yeast,Urine Occasional /hpf; Color,Urine Light Yellow; Glucose,Urine (UA) Negative (Negative); Ketones,Urine Negative (Negative); Leukocyte Esterase,Urine Large (Negative); Nitrite,Urine Negative (Negative); Protein,Urine Trace (Negative); RBC,Urine 3 /hpf (0-5); Specific Gravity,Urine 1.007 (1.001-1.035); Squamous Epithelial Cell,Urine 1 /hpf (0-4); Urobilinogen,Urine <2.0 mg/dL (<2.0); WBC,Urine >182 /hpf (0-5)
[2020-12-01] MEDS ORDERED: cefTRIAXone IN SWFI 1,000 MG/10 ML SYRINGE IVP STA (15:17)
--- NOTE | 2020-12-01 15:25 | ED ---
Female Urogenital HPI - General Chief complaint: Urogenital Stated complaint: Poss UTI Time Seen by Provider: 12/01/20 14:43 Source: patient, RN notes reviewed Mode of arrival: ambulatory Limitations: no limitations - History of Present Illness Initial comments: Patient is a 75-year-old female presents immersed from a complaining of urinary tract infection symptoms such as frequency or dysuria and lower abdominal discomfort. She notes that she has a history of urinary tract infections patient was in arrest antibiotic she does not feel was rule out of course. Patient has many medication ALLERGIES and only has a limited amount of antibiotics she can take. She denied any other issues or complaints at this time. She was well-appearing well-hydrated while sitting up in bed during the exam interview. She denied any chest pain shortness breath headache nausea vomiting diarrhea constipation fever fatigue chills.. - Related Data Home Medications Medication Instructions Recorded Confirmed Benazepril HCl 20 mg PO DAILY 02/24/14 07/30/18 Cholecalciferol [Vitamin D3] 2,000 unit PO BID 02/24/14 07/30/18 Cranberry Conc/C/Bacill Coag 2 tab PO TID 02/24/14 07/30/18 [Cranberry Tablet] Levothyroxine Sodium [Synthroid] 75 mcg PO DAILY 02/24/14 07/30/18 PHENobarbital 60 mg PO HS 02/24/14 07/30/18 Simvastatin [Zocor] 20 mg PO HS 02/24/14 07/30/18 Calcium Carbonate [Calcium] 600 mg PO BID 05/01/17 07/30/18 Carboxymethylcellulose Sodium 1 drop BOTH EYES DAILY 06/06/18 07/30/18 [Refresh Tears] amLODIPine [Norvasc] 10 mg PO DAILY 07/30/18 07/30/18 Previous Rx's Medication Instructions Recorded Famotidine [Pepcid] 20 mg PO BID #40 tablet 06/11/14 Amoxicillin/Potassium Clav 1 tab PO Q12HR #20 tab 07/02/19 [Augmentin 875-125 Tablet] Ondansetron [Zofran ODT] 4 mg PO Q8HR PRN #15 tab 07/02/19 Cephalexin [Keflex] 500 mg PO Q12HR 7 Days #14 cap 03/14/20 Cephalexin [Keflex] 500 mg PO BID 7 Days #14 cap 11/01/20 Cephalexin [Keflex] 500 mg PO Q6H 1 Days #40 cap 12/01/20 Allergies Allergy/AdvReac Type Severity Reaction Status Date / Time aspirin Allergy Unknown Verified 12/01/20 14:38 fexofenadine HCl Allergy Nausea & Verified 12/01/20 14:38 [From Little] Vomiting & Diarrhea Hydantoins Allergy Unknown Verified 12/01/20 14:38 levofloxacin [From Levaquin] Allergy Unknown Verified 12/01/20 14:38 nitrofurantoin Allergy Rash/Hives Verified 12/01/20 14:38 [From Macrobid] phenytoin sodium Allergy Rash/Hives Verified 12/01/20 14:38 [From Dilantin] sulfamethoxazole Allergy Rash/Hives Verified 12/01/20 14:38 [From Bactrim] tetracycline Allergy Unknown Verified 12/01/20 14:38 trimethoprim Allergy Rash/Hives Verified 12/01/20 14:38 acetaminophen AdvReac Diarrhea Verified 12/01/20 14:38 [From Coricidin] amoxicillin [Amoxicillin] AdvReac Nausea & Verified 12/01/20 14:38 Vomiting & Diarrhea chlorpheniramine maleate AdvReac Diarrhea Verified 12/01/20 14:38 [From Coricidin] codeine AdvReac DIZZINESS Verified 12/01/20 14:38 phenylpropanolamine HCl AdvReac Diarrhea Verified 12/01/20 14:38 [From Coricidin] prednisone AdvReac Nausea & Verified 12/01/20 14:38 Vomiting & Diarrhea propoxyphene HCl AdvReac DIZZINESS Verified 12/01/20 14:38 [From Darvon] narcotic Allergy LETHARGIC/H Uncoded 12/01/20 14:38 CONCEPCI[place]NDACHES Review of Systems ROS Statement: Those systems with pertinent positive or pertinent negative responses have been documented in the HPI. ROS Other: All systems not noted in ROS Statement are negative. Past Medical History Past Medical History: GERD/Reflux, Hyperlipidemia, Hypertension, Seizure Disorder, Thyroid Disorder Additional Past Medical History / Comment(s): hx. colon polyps, >40 yrs. had seizures History of Any Multi-Drug Resistant Organisms: None Reported Past Surgical History: Cholecystectomy, Orthopedic Surgery Additional Past Surgical History / Comment(s): colonoscopy, hand surg. Past Anesthesia/Blood Transfusion Reactions: No Reported Reaction Past Psychological History: Anxiety, Depression Smoking Status: Never smoker Past Alcohol Use History: None Reported Past Drug Use History: None Reported - Past Family History Mother Family Medical History: Cancer Father History Unknown: Yes Sister(s) Family Medical History: Cancer Brother(s) History Unknown: Yes Son(s) Family Medical History: No Reported History Daughter(s) Additional Family Medical History / Comment(s): went without oxygen at General Exam Limitations: no limitations General appearance: alert, in no apparent distress Head exam: Present: atraumatic, normocephalic, normal inspection Eye exam: Present: normal appearance, PERRL, EOMI. Absent: scleral icterus, conjunctival injection, periorbital swelling Neck exam: Present: normal inspection Respiratory exam: Present: normal lung sounds bilaterally. Absent: respiratory distress, wheezes, rales, rhonchi, stridor Cardiovascular Exam: Present: regular rate, normal rhythm, normal heart sounds. Absent: systolic murmur, diastolic murmur, rubs, gallop, clicks GI/Abdominal exam: Present: soft, normal bowel sounds, other (Mild discomfort in lower abdomen). Absent: distended, tenderness, guarding, rebound, rigid Extremities exam: Present: normal inspection, full ROM, normal capillary refill. Absent: tenderness, pedal edema, joint swelling, calf tenderness Neurological exam: Present: alert, oriented X3 Psychiatric exam: Present: normal affect, normal mood Skin exam: Present: warm, dry, intact, normal color. Absent: rash Course Vital Signs 12/01/20 14:38 Temperature 97.4 F L Pulse Rate 66 Respiratory 16 Rate Blood Pressure 160/71 O2 Sat by Pulse 98 Oximetry Medical Decision Making - Medical Decision Making 75-year-old female complaining of urinary tract infection symptoms. Urinalysis ordered. Urinalysis shows high amounts white blood cells greater than 182. 1 g of Rocephin IV push ordered. Case discussed with Dr. Bill, patient discharge home on antibiotic. - Lab Data Lab Results 12/01/20 Range/Units 14:53 Urine Color Light Yellow Urine Appearance Cloudy H (Clear) Urine pH 7.0 (5.0-8.0) Ur Specific [place] 1.007 (1.001-1.035) Urine Protein Trace H (Negative) Urine Glucose (UA) Negative (Negative) Urine Ketones Negative (Negative) Urine Blood Moderate H (Negative) Urine Nitrite Negative (Negative) Urine Bilirubin Negative (Negative) Urine Urobilinogen <2.0 (<2.0) mg/dL Ur Leukocyte Esterase Large H (Negative) Urine RBC 3 (0-5) /hpf Urine WBC >182 H (0-5) /hpf Urine WBC Clumps Many H (None) /hpf Ur Squamous Epith Cells 1 (0-4) /hpf Urine Bacteria Occasional H (None) /hpf Urine Yeast (Budding) Occasional H (None) /hpf Disposition Clinical Impression: UTI (urinary tract infection) Disposition: HOME SELF-CARE Condition: Stable Instructions (If sedation given, give patient instructions): Urinary Tract Infection in Women (ED) Additional Instructions: Please return to the Emergency Department if symptoms worsen or any other concerns. Follow-up with primary care. Take antibiotics as prescribed until complete do not stopped taking early or with medication left over. Increase oral Prescriptions: Cephalexin [Keflex] 500 mg PO Q6H 1 Days #40 cap Is patient prescribed a controlled substance at d/c from ED?: No Referrals: Nish Trimble MD [Primary Care Provider] - 1-2 days Time of Disposition: 15:41
[2020-12-01] MEDS ORDERED: cefTRIAXone 1,000 MG VIAL (IM USE) IM STA (15:48)
[2020-12-01 16:23] VITALS: BP 151/62; PULSE 55; RESP 18; TEMP 97
== END 2020-12-01 16:22 | disposition home or self-care (01) ==
LOC: EC 14:24
DX: N39.0 Urinary tract infection, site not specified (principal); I10 Essential (primary) hypertension; E78.5 Hyperlipidemia, unspecified; K21.9 Gastro-esophageal reflux disease without esophagitis; G40.909 Epilepsy, unspecified, not intractable, without status epilepticus; F32.9 Major depressive disorder, single episode, unspecified; F41.9 Anxiety disorder, unspecified; Z87.19 Personal history of other diseases of the digestive system; Z88.0 Allergy status to penicillin; Z88.1 Allergy status to other antibiotic agents; Z88.2 Allergy status to sulfonamides; Z88.5 Allergy status to narcotic agent; Z88.8 Allergy status to other drugs, medicaments and biological substances
CPT/HCPCS: 81001; 99284; 96372; J0696

== ENCOUNTER 2020-12-04 12:00 | Emergency (ER) | payer MEDICARE, OTHER ==
[2020-12-04 12:09] VITALS: RESP 18
--- NOTE | 2020-12-04 12:37 | ED ---
Abdominal Pain HPI - General Source: patient, RN notes reviewed Mode of arrival: ambulatory Limitations: no limitations <Delbert López - Last Filed: 12/04/20 12:34> <Noé Sellers - Last Filed: 12/04/20 15:25> - General Chief Complaint: Abdominal Pain Stated Complaint: UTI/Abd Pain Time Seen by Provider: 12/04/20 12:19 - History of Present Illness Initial Comments: 75-year-old female presents emergency from with chief complaint of painful urination, mild left-sided abdominal pain. Patient seen a few days ago diagnosed UTI she's been taking Keflex. Patient states it seems to not be helping. Patient had frequent urinary tract infections. No flank pain no fevers or chills no nausea vomiting diarrhea constipation. Patient offers no other complaints. (Delbert López) - Related Data Home Medications Medication Instructions Recorded Confirmed Benazepril HCl 20 mg PO DAILY 02/24/14 12/04/20 Cholecalciferol [Vitamin D3] 2,000 unit PO BID 02/24/14 12/04/20 Levothyroxine Sodium [Synthroid] 75 mcg PO DAILY 02/24/14 12/04/20 Simvastatin [Zocor] 20 mg PO HS 02/24/14 12/04/20 Calcium Carbonate [Calcium] 600 mg PO BID 05/01/17 12/04/20 Carboxymethylcellulose Sodium 1 drop BOTH EYES BID 06/06/18 12/04/20 [Refresh Tears] amLODIPine [Norvasc] 10 mg PO DAILY 07/30/18 12/04/20 PHENobarbital 60 mg PO HS 12/04/20 12/04/20 Previous Rx's Medication Instructions Recorded Famotidine [Pepcid] 20 mg PO BID #40 tablet 06/11/14 Cephalexin [Keflex] 500 mg PO BID 7 Days #14 cap 11/01/20 Amoxic-Pot Clav 875-125Mg 1 tab PO TID 10 Days #30 tab 12/04/20 [Augmentin 875-125] Allergies Allergy/AdvReac Type Severity Reaction Status Date / Time aspirin Allergy Unknown Verified 12/04/20 13:14 fexofenadine HCl Allergy Nausea & Verified 12/04/20 13:14 [From Little] Vomiting & Diarrhea Hydantoins Allergy Unknown Verified 12/04/20 13:14 levofloxacin [From Levaquin] Allergy Unknown Verified 12/04/20 13:14 nitrofurantoin Allergy Rash/Hives Verified 12/04/20 13:14 [From Macrobid] phenytoin sodium Allergy Rash/Hives Verified 12/04/20 13:14 [From Dilantin] sulfamethoxazole Allergy Rash/Hives Verified 12/04/20 13:14 [From Bactrim] tetracycline Allergy Unknown Verified 12/04/20 13:14 trimethoprim Allergy Rash/Hives Verified 12/04/20 13:14 acetaminophen AdvReac Diarrhea Verified 12/04/20 13:14 [From Coricidin] amoxicillin [Amoxicillin] AdvReac Nausea & Verified 12/04/20 13:14 Vomiting & Diarrhea chlorpheniramine maleate AdvReac Diarrhea Verified 12/04/20 13:14 [From Coricidin] codeine AdvReac DIZZINESS Verified 12/04/20 13:14 phenylpropanolamine HCl AdvReac Diarrhea Verified 12/04/20 13:14 [From Coricidin] prednisone AdvReac Nausea & Verified 12/04/20 13:14 Vomiting & Diarrhea propoxyphene HCl AdvReac DIZZINESS Verified 12/04/20 13:14 [From Darvon] narcotic Allergy LETHARGIC/H Uncoded 12/04/20 12:06 EADACHES Review of Systems ROS Other: All systems not noted in ROS Statement are negative. <Delbert López - Last Filed: 12/04/20 12:34> ROS Other: All systems not noted in ROS Statement are negative. <Noé Sellers - Last Filed: 12/04/20 15:25> ROS Statement: Those systems with pertinent positive or pertinent negative responses have been documented in the HPI. Past Medical History Past Medical History: GERD/Reflux, Hyperlipidemia, Hypertension, Seizure Di sorder, Thyroid Disorder Additional Past Medical History / Comment(s): hx. colon polyps, >40 yrs. had seizures History of Any Multi-Drug Resistant Organisms: None Reported Past Surgical History: Cholecystectomy, Orthopedic Surgery Additional Past Surgical History / Comment(s): colonoscopy, hand surg. Past Anesthesia/Blood Transfusion Reactions: No Reported Reaction Past Psychological History: Anxiety, Depression Smoking Status: Never smoker Past Alcohol Use History: None Reported Past Drug Use History: None Reported - Past Family History Mother Family Medical History: Cancer Father History Unknown: Yes Sister(s) Family Medical History: Cancer Brother(s) History Unknown: Yes Son(s) Family Medical History: No Reported History Daughter(s) Additional Family Medical History / Comment(s): went without oxygen at <Delbert López - Last Filed: 12/04/20 12:34> General Exam Limitations: no limitations General appearance: alert, in no apparent distress Head exam: Present: atraumatic, normocephalic, normal inspection Eye exam: Present: normal appearance, PERRL, EOMI. Absent: scleral icterus, conjunctival injection, periorbital swelling Neck exam: Present: normal inspection, full ROM. Absent: tenderness, meningismus, lymphadenopathy Respiratory exam: Present: normal lung sounds bilaterally. Absent: respiratory distress, wheezes, rales, rhonchi, stridor Cardiovascular Exam: Present: regular rate, normal rhythm, normal heart sounds. Absent: systolic murmur, diastolic murmur, rubs, gallop, clicks GI/Abdominal exam: Present: soft, normal bowel sounds. Absent: distended, tenderness, guarding, rebound, rigid Back exam: Absent: CVA tenderness (R), CVA tenderness (L) <Delbert López M - Last Filed: 12/04/20 12:34> Course Vital Signs 12/04/20 12/04/20 12:06 13:08 Temperature 97.6 F 97.9 F Pulse Rate 69 63 Respiratory 18 18 Rate Blood Pressure 160/57 159/66 O2 Sat by Pulse 100 99 Oximetry Medical Decision Making - Lab Data Result diagrams: 12/04/20 12:50 12/04/20 12:50 <Noé Sellers - Last Filed: 12/04/20 15:25> - Medical Decision Making Patient is signed out to me by previous shift provider, Delbert López. Briefly, patient is 75-year-old female with history of constipation presents to the emergency department for left-sided abdominal pain. Labs are unremarkable. Urinalysis is negative. X-rays concerning for possible ileus versus early small bowel obstruction. Computed tomography scan ordered. Advised to follow-up with CT. Computed tomography scan of the abdomen and pelvis shows mild inflammatory changes concerning for salpingitis versus mild diverticulitis. There are also bilateral ovarian cysts. Patient has extensive history of diverticulitis. Patient symptoms consistent with recurrent diverticulitis. Patient started on antibiotics. ALLERGY list was discussed with patient. She's been on Augmentin before and tolerated well the last time she had diverticulitis. Patient states that she gets nausea with amoxicillin. She does not get any symptoms of true drug ALLERGY. Patient be discharged. She is tolerating oral intake at bedside. (Noé Sellers) - Lab Data Lab Results 12/04/20 12/04/20 12/04/20 Range/Units 12:50 12:50 12:50 WBC 8.7 (3.8-10.6) k/uL RBC 4.47 (3.80-5.40) m/uL Hgb 14.8 (11.4-16.0) gm/dL Hct 41.8 (34.0-46.0) % MCV 93.6 (80.0-100.0) fL MCH 33.2 (25.0-35.0) pg MCHC 35.4 (31.0-37.0) g/dL RDW 12.8 (11.5-15.5) % Plt Count 208 (150-450) k/uL MPV 7.6 Neutrophils % 72 % Lymphocytes % 21 % Monocytes % 4 % Eosinophils % 1 % Basophils % 1 % Neutrophils # 6.2 (1.3-7.7) k/uL Lymphocytes # 1.9 (1.0-4.8) k/uL Monocytes # 0.4 (0-1.0) k/uL Eosinophils # 0.1 (0-0.7) k/uL Basophils # 0.1 (0-0.2) k/uL Sodium 139 (137-145) mmol/L Potassium 4.6 (3.5-5.1) mmol/L Chloride 102 (98-107) mmol/L Carbon Dioxide 25 (22-30) mmol/L Anion Gap 12 mmol/L BUN 18 H (7-17) mg/dL Creatinine 0.70 (0.52-1.04) mg/dL Est GFR (CKD-EPI)AfAm >90 (>60 ml/min/1.73 sqM) Est GFR (CKD-EPI)NonAf 86 (>60 ml/min/1.73 sqM) Glucose 118 H (74-99) mg/dL Plasma Lactic Acid Aditya (0.7-2.0) mmol/L Calcium 10.0 (8.4-10.2) mg/dL Total Bilirubin 0.5 (0.2-1.3) mg/dL AST 36 (14-36) U/L ALT 18 (4-34) U/L Alkaline Phosphatase 131 H (38-126) U/L Total Protein 7.9 (6.3-8.2) g/dL Albumin 4.8 (3.5-5.0) g/dL Urine Color Light Yellow Urine Appearance Cloudy H (Clear) Urine pH 6.5 (5.0-8.0) Ur Specific [place] 1.005 (1.001-1.035) Urine Protein Trace H (Negative) Urine Glucose (UA) Negative (Negative) Urine Ketones Negative (Negative) Urine Blood Negative (Negative) Urine Nitrite Negative (Negative) Urine Bilirubin Negative (Negative) Urine Urobilinogen <2.0 (<2.0) mg/dL Ur Leukocyte Esterase Trace H (Negative) Urine RBC <1 (0-5) /hpf Urine WBC 2 (0-5) /hpf Ur Squamous Epith Cells 1 (0-4) /hpf Urine Bacteria Rare H (None) /hpf 12/04/20 Range/Units 12:50 WBC (3.8-10.6) k/uL RBC (3.80-5.40) m/uL Hgb (11.4-16.0) gm/dL Hct (34.0-46.0) % MCV (80.0-100.0) fL MCH (25.0-35.0) pg MCHC (31.0-37.0) g/dL RDW (11.5-15.5) % Plt Count (150-450) k/uL MPV Neutrophils % % Lymphocytes % % Monocytes % % Eosinophils % % Basophils % % Neutrophils # (1.3-7.7) k/uL Lymphocytes # (1.0-4.8) k/uL Monocytes # (0-1.0) k/uL Eosinophils # (0-0.7) k/uL Basophils # (0-0.2) k/uL Sodium (137-145) mmol/L Potassium (3.5-5.1) mmol/L Chloride (98-107) mmol/L Carbon Dioxide (22-30) mmol/L Anion Gap mmol/L BUN (7-17) mg/dL Creatinine (0.52-1.04) mg/dL Est GFR (CKD-EPI)AfAm (>60 ml/min/1.73 sqM) Est GFR (CKD-EPI)NonAf (>60 ml/min/1.73 sqM) Glucose (74-99) mg/dL Plasma Lactic Acid Aditya 0.7 (0.7-2.0) mmol/L Calcium (8.4-10.2) mg/dL Total Bilirubin (0.2-1.3) mg/dL AST (14-36) U/L ALT (4-34) U/L Alkaline Phosphatase (38-126) U/L Total Protein (6.3-8.2) g/dL Albumin (3.5-5.0) g/dL Urine Color Urine Appearance (Clear) Urine pH (5.0-8.0) Ur Specific [place] (1.001-1.035) Urine Protein (Negative) Urine Glucose (UA) (Negative) Urine Ketones (Negative) Urine Blood (Negative) Urine Nitrite (Negative) Urine Bilirubin (Negative) Urine Urobilinogen (<2.0) mg/dL Ur Leukocyte Esterase (Negative) Urine RBC (0-5) /hpf Urine WBC (0-5) /hpf Ur Squamous Epith Cells (0-4) /hpf Urine Bacteria (None) /hpf Disposition <Delbert López - Last Filed: 12/04/20 12:34> Is patient prescribed a controlled substance at d/c from ED?: No <Noé Sellers - Last Filed: 12/04/20 15:25> Clinical Impression: Diverticulitis Disposition: HOME SELF-CARE Condition: Good Prescriptions: Amoxic-Pot Clav 875-125Mg [Augmentin 875-125] 1 tab PO TID 10 Days #30 tab Referrals: Nish Trimble MD [Primary Care Provider] - 1-2 days
[2020-12-04 13:03] LABS: Basophils # (A) 0.1 k/uL (0-0.2); Basophils % (A) 1 %; Eosinophils # (A) 0.1 k/uL (0-0.7); Eosinophils % (A) 1 %; HCT 41.8 % (34.0-46.0); HGB 14.8 gm/dL (11.4-16.0); Lymphocytes # (A) 1.9 k/uL (1.0-4.8); Lymphocytes % (A) 21 %; MCH 33.2 pg (25.0-35.0); MCHC 35.4 g/dL (31.0-37.0); MCV 93.6 fL (80.0-100.0); Mean Platelet Volume 7.6; Monocytes # (A) 0.4 k/uL (0-1.0); Monocytes % (A) 4 %; Neutrophils # (A) 6.2 k/uL (1.3-7.7); Neutrophils % (A) 72 %; Platelet Count 208 k/uL (150-450); RBC 4.47 m/uL (3.80-5.40); RDW 12.8 % (11.5-15.5); WBC 8.7 k/uL (3.8-10.6)
[2020-12-04 13:19] LABS: ALT 18 U/L (4-34); AST 36 U/L (14-36); African American GFR (CKD) >90 (>60 ml/min/1.73 sqM); Albumin 4.8 g/dL (3.5-5.0); Alkaline Phosphatase 131 U/L (38-126); Anion Gap 12 mmol/L; Blood Urea Nitrogen 18 mg/dL (7-17); Carbon Dioxide 25 mmol/L (22-30); Chloride 102 mmol/L (98-107); Glucose 118 mg/dL (74-99); Non-African American GFR(CKD) 86 (>60 ml/min/1.73 sqM); Potassium 4.6 mmol/L (3.5-5.1); Sodium 139 mmol/L (137-145); Total Bilirubin 0.5 mg/dL (0.2-1.3); Total Protein 7.9 g/dL (6.3-8.2)
[2020-12-04 13:26] LABS: Appearance,Urine Cloudy (Clear); Bacteria,Urine Rare /hpf; Bilirubin,Urine Negative (Negative); Blood,Urine Negative (Negative); Color,Urine Light Yellow; Glucose,Urine (UA) Negative (Negative); Ketones,Urine Negative (Negative); Leukocyte Esterase,Urine Trace (Negative); Nitrite,Urine Negative (Negative); PH, Urine 6.5 (5.0-8.0); Protein,Urine Trace (Negative); RBC,Urine <1 /hpf (0-5); Specific Gravity,Urine 1.005 (1.001-1.035); Squamous Epithelial Cell,Urine 1 /hpf (0-4); Urobilinogen,Urine <2.0 mg/dL (<2.0); WBC,Urine 2 /hpf (0-5)
--- NOTE | 2020-12-04 13:53 | XR ---
EXAMINATION TYPE: XR KUB DATE OF EXAM: 12/04/2020 1:46 PM CLINICAL HISTORY: bladder infection. TECHNIQUE: Single supine KUB image of the abdomen is obtained. COMPARISON: None. FINDINGS: There is a loop of prominent air filled bowel in the left abdomen. Gas and fecal material is seen in non-distended colon. There is no visceromegaly, pneumoperitoneum, or abnormal calcificatio n appreciated. The lung bases are clear and the osseous structures are intact. IMPRESSION: There is a loop of prominent air filled bowel in the left abdomen. Gas and fecal material is seen in non-distended colon. This may represent early or incomplete small bowel obstruction versus ileus.
[2020-12-04 14:02] VITALS: TEMP 97.9
--- NOTE | 2020-12-04 15:05 | CT ---
EXAMINATION TYPE: CT abdomen pelvis w con DATE OF EXAM: 12/04/2020 COMPARISON: 04/06/2020 INDICATION: Left lower quadrant abdominal pain DLP: 850.3 mGycm, Automated exposure control for dose reduction was used. CONTRAST: 100 mL of Isovue 300. Study performed without Oral Contrast TECHNIQUE: Axial images were obtained from above the diaphragm to the pubic rami in the axial plane a t 5 mm thick sections. Reconstructed images are reviewed on the computer in the coronal plane. FINDINGS: Limited CT sections are obtained the lung bases. The lung bases are clear. CT ABDOMEN: Liver: Normal Spleen: Normal Pancreas: Atrophic Adrenal glands: The adrenal glands are normal. Gallbladder: Surgically absent Kidneys: No masses are evident. No hydronephrosis is present. No cysts are present. No renal stone s are evident. Aorta: Vascular calcification is within the aorta. Inferior vena cava: Normal. CT PELVIS: Loops of bowel within the abdomen and pelvis are normal. Study is without oral contrast limiting overall evaluation. Multiple diverticula within the sigmoid colon. Appendix: Normal as visualized. Urinary bladder: Normal. Genitourinary structures: Uterus appears normal. There is a 3.7 cm right ovarian cyst. A 1.6 cm left ovarian cyst is present. Adjacent to the left ovary within the paracolic gutter and adjacent to the superior sigmoid colon may be some mild inflammatory change. Consider salpingitis or mild diverticulitis. No suspicious changes to suggest abscess formation. No intra-abdominal free air evident. Osseous structures: No suspicious lytic or sclerotic lesions. IMPRESSIONS: 1. Mild inflammatory changes left paracolic gutter extending adjacent to the sigmoid colon. Correlat e for salpingitis versus mild diverticulitis. 2. Bilateral ovarian cysts.
[2020-12-04 15:46] VITALS: BP 146/95; PULSE 68
== END 2020-12-04 15:32 | disposition home or self-care (01) ==
LOC: EC 12:00
DX: K57.92 Diverticulitis of intestine, part unspecified, without perforation or abscess without bleeding (principal); E78.5 Hyperlipidemia, unspecified; I10 Essential (primary) hypertension; G40.909 Epilepsy, unspecified, not intractable, without status epilepticus; K21.9 Gastro-esophageal reflux disease without esophagitis; E07.9 Disorder of thyroid, unspecified; F32.9 Major depressive disorder, single episode, unspecified
CPT/HCPCS: 36415; 80053; 83605; 85025; 81001; 74018; 74177; 99284; Q9967

== ENCOUNTER 2020-12-11 00:13 | Inpatient (IN) | payer MEDICARE, OTHER ==
[2020-12-11] MEDS ORDERED: SODIUM CHLORIDE 0.9% 500 ML 500 ML IV STA (00:40)
--- NOTE | 2020-12-11 01:20 | ED ---
Abdominal Pain HPI - General Source: patient, EMS Mode of arrival: ambulatory Limitations: no limitations <Christiane Garcia - Last Filed: 12/11/20 21:57> <Vini Humphries - Last Filed: 12/14/20 07:24> - General Chief Complaint: Abdominal Pain Stated Complaint: ABD Pain Time Seen by Provider: 12/11/20 00:16 - History of Present Illness Initial Comments: 75 year-old female patient presents to the emergency department for evaluation of left lower quadrant abdominal pain. States that she was diagnosed with diverticulitis a week ago and has been taking Augmentin. States that she developed a pain to the left lower quadrant after dinner tonight. States she has been having some diarrhea. Denies any hematochezia or melena. Denies fever or chills. Denies any vomiting. States she did receive an injection at her doctor's office last week and is still having some discomfort to the left buttock. She is unsure if this is related. Patient denies any recent rash, cough, shortness of breath, chest pain, back pain, numbness, tingling, dizziness, weakness, hematuria, dysuria, urinary urgency, urinary frequency, headache, visual changes, or any other complaints. (Christiane Garcia) - Related Data Home Medications Medication Instructions Recorded Confirmed Benazepril HCl 20 mg PO DAILY 02/24/14 12/11/20 Cholecalciferol [Vitamin D3] 50 mcg PO BID 02/24/14 12/11/20 Levothyroxine Sodium [Synthroid] 75 mcg PO DAILY 02/24/14 12/11/20 Simvastatin [Zocor] 20 mg PO HS 02/24/14 12/11/20 Calcium Carbonate [Calcium] 600 mg PO BID 05/01/17 12/11/20 Carboxymethylcellulose Sodium 1 drop BOTH EYES BID 06/06/18 12/11/20 [Refresh Tears] amLODIPine [Norvasc] 10 mg PO DAILY 07/30/18 12/11/20 PHENobarbital 60 mg PO HS 12/04/20 12/11/20 Cephalexin [Keflex] 500 mg PO Q6H 12/11/20 12/11/20 Previous Rx's Medication Instructions Recorded Famotidine [Pepcid] 20 mg PO BID #40 tablet 06/11/14 Amoxic-Pot Clav 875-125Mg 1 tab PO TID 10 Days #30 tab 12/04/20 [Augmentin 875-125] Allergies Allergy/AdvReac Type Severity Reaction Status Date / Time aspirin Allergy Unknown Verified 12/04/20 13:14 fexofenadine HCl Allergy Nausea & Verified 12/04/20 13:14 [From Little] Vomiting & Diarrhea Hydantoins Allergy Unknown Verified 12/04/20 13:14 nitrofurantoin Allergy Rash/Hives Verified 12/04/20 13:14 [From Macrobid] phenytoin sodium Allergy Rash/Hives Verified 12/04/20 13:14 [From Dilantin] sulfamethoxazole Allergy Rash/Hives Verified 12/04/20 13:14 [From Bactrim] tetracycline Allergy Unknown Verified 12/04/20 13:14 trimethoprim Allergy Rash/Hives Verified 12/04/20 13:14 acetaminophen AdvReac Diarrhea Verified 12/04/20 13:14 [From Coricidin] amoxicillin [Amoxicillin] AdvReac Nausea & Verified 12/04/20 13:14 Vomiting & Diarrhea chlorpheniramine maleate AdvReac Diarrhea Verified 12/04/20 13:14 [From Coricidin] codeine AdvReac DIZZINESS Verified 12/04/20 13:14 levofloxacin [From Levaquin] AdvReac Diarrhea Verified 12/12/20 13:48 phenylpropanolamine HCl AdvReac Diarrhea Verified 12/04/20 13:14 [From Coricidin] prednisone AdvReac Nausea & Verified 12/04/20 13:14 Vomiting & Diarrhea propoxyphene HCl AdvReac DIZZINESS Verified 12/04/20 13:14 [From Darvon] narcotic Allergy LETHARGIC/H Uncoded 12/04/20 12:06 EADACHES Review of Systems ROS Other: All systems not noted in ROS Statement are negative. <Christiane Garcia - Last Filed: 12/11/20 21:57> ROS Other: All systems not noted in ROS Statement are negative. <Vini Humphries - Last Filed: 12/14/20 07:24> ROS Statement: Those systems with pertinent positive or pertinent negative responses have been documented in the HPI. Past Medical History Past Medical History: GERD/Reflux, Hyperlipidemia, Hypertension, Seizure Disor eva, Thyroid Disorder Additional Past Medical History / Comment(s): hx. colon polyps, >40 yrs. had seizures History of Any Multi-Drug Resistant Organisms: None Reported Past Surgical History: Cholecystectomy, Orthopedic Surgery Additional Past Surgical History / Comment(s): colonoscopy, hand surg. Past Anesthesia/Blood Transfusion Reactions: No Reported Reaction Past Psychological History: Anxiety, Depression Smoking Status: Never smoker Past Alcohol Use History: None Reported Past Drug Use History: None Reported - Past Family History Mother Family Medical History: Cancer Father History Unknown: Yes Sister(s) Family Medical History: Cancer Brother(s) History Unknown: Yes Son(s) Family Medical History: No Reported History Daughter(s) Additional Family Medical History / Comment(s): went without oxygen at <Christiane Garcia - Last Filed: 12/11/20 21:57> General Exam Limitations: no limitations General appearance: alert, in no apparent distress, other (Physical well- developed, well-nourished elderly female patient in no acute distress. Vital signs upon presentation temperature 97.8F, pulse 57, respirations 20 over pressure 197/81, pulse ox 98% on room air.) Respiratory exam: Present: normal lung sounds bilaterally. Absent: respiratory distress, wheezes, rales, rhonchi, stridor Cardiovascular Exam: Present: regular rate, normal rhythm, normal heart sounds. Absent: systolic murmur, diastolic murmur, rubs, gallop, clicks GI/Abdominal exam: Present: soft, tenderness (LLQ), normal bowel sounds. Absent: distended, guarding, rebound, rigid Neurological exam: Present: alert, oriented X3, CN II-XII intact Psychiatric exam: Present: normal affect, normal mood Skin exam: Present: warm, dry, intact, normal color, other (Skin to the left buttock intact without erythema, induration, or rash. ). Absent: rash <Christiane Garcia M - Last Filed: 12/11/20 21:57> Course Vital Signs 12/11/20 12/11/20 12/11/20 00:19 01:24 04:00 Temperature 97.8 F Pulse Rate 57 L 58 L 54 L Respiratory 20 14 18 Rate Blood Pressure 187/81 164/71 174/71 O2 Sat by Pulse 98 98 95 Oximetry 12/11/20 12/11/20 05:54 06:16 Temperature Pulse Rate 80 71 Respiratory 18 14 Rate Blood Pressure 164/74 130/61 O2 Sat by Pulse 100 98 Oximetry Medical Decision Making - Lab Data Result diagrams: 12/11/20 01:07 12/11/20 02:30 <Christiane Garcia - Last Filed: 12/11/20 21:57> - Lab Data Result diagrams: 12/13/20 06:33 12/13/20 06:33 <Vini Humphries - Last Filed: 12/14/20 07:24> - Medical Decision Making 75-year-old female patient presented to the emergency department today for evaluation of left lower quadrant abdominal pain. She is being treated for diverticulitis with Augmentin and tonight the pain worsened. She is afebrile with normal vital signs. Labs reviewed and are unremarkable. Repeat computed tomography scan was obtained, results are pending. Care handed off to my attending physician Dr. Humphries at 0300. (Christiane Garcia) I saw this patient in conjunction with the physician warehouse administrative assistant. I performed independent history and physical exam. Agree with case management. (Vini Humphries) - Lab Data Lab Results 12/11/20 12/11/20 12/11/20 Range/Units 01:07 01:07 02:00 WBC 8.5 (3.8-10.6) k/uL RBC 4.28 (3.80-5.40) m/uL Hgb 14.1 (11.4-16.0) gm/dL Hct 39.6 (34.0-46.0) % MCV 92.5 (80.0-100.0) fL MCH 32.9 (25.0-35.0) pg MCHC 35.6 (31.0-37.0) g/dL RDW 12.6 (11.5-15.5) % Plt Count 212 (150-450) k/uL MPV 7.6 Neutrophils % 67 % Lymphocytes % 24 % Monocytes % 6 % Eosinophils % 1 % Basophils % 0 % Neutrophils # 5.7 (1.3-7.7) k/uL Lymphocytes # 2.0 (1.0-4.8) k/uL Monocytes # 0.5 (0-1.0) k/uL Eosinophils # 0.1 (0-0.7) k/uL Basophils # 0.0 (0-0.2) k/uL Sodium (137-145) mmol/L Potassium (3.5-5.1) mmol/L Chloride (98-107) mmol/L Carbon Dioxide (22-30) mmol/L Anion Gap mmol/L BUN (7-17) mg/dL Creatinine (0.52-1.04) mg/dL Est GFR (CKD-EPI)AfAm (>60 ml/min/1.73 sqM) Est GFR (CKD-EPI)NonAf (>60 ml/min/1.73 sqM) Glucose (74-99) mg/dL Plasma Lactic Acid Aditya 0.9 (0.7-2.0) mmol/L Calcium (8.4-10.2) mg/dL Total Bilirubin (0.2-1.3) mg/dL AST (14-36) U/L ALT (4-34) U/L Alkaline Phosphatase (38-126) U/L Total Protein (6.3-8.2) g/dL Albumin (3.5-5.0) g/dL Lipase (23-300) U/L Urine Color Light Yellow Urine Appearance Clear (Clear) Urine pH 6.0 (5.0-8.0) Ur Specific [place] 1.006 (1.001-1.035) Urine Protein 2+ H (Negative) Urine Glucose (UA) Negative (Negative) Urine Ketones Negative (Negative) Urine Blood Negative (Negative) Urine Nitrite Negative (Negative) Urine Bilirubin Negative (Negative) Urine Urobilinogen <2.0 (<2.0) mg/dL Ur Leukocyte Esterase Negative (Negative) Urine RBC <1 (0-5) /hpf Urine WBC 2 (0-5) /hpf Ur Squamous Epith Cells 1 (0-4) /hpf Amorphous Sediment Rare H (None) /hpf Urine Mucus Rare H (None) /hpf 12/11/20 Range/Units 02:30 WBC (3.8-10.6) k/uL RBC (3.80-5.40) m/uL Hgb (11.4-16.0) gm/dL Hct (34.0-46.0) % MCV (80.0-100.0) fL MCH (25.0-35.0) pg MCHC (31.0-37.0) g/dL RDW (11.5-15.5) % Plt Count (150-450) k/uL MPV Neutrophils % % Lymphocytes % % Monocytes % % Eosinophils % % Basophils % % Neutrophils # (1.3-7.7) k/uL Lymphocytes # (1.0-4.8) k/uL Monocytes # (0-1.0) k/uL Eosinophils # (0-0.7) k/uL Basophils # (0-0.2) k/uL Sodium 135 L (137-145) mmol/L Potassium 4.2 (3.5-5.1) mmol/L Chloride 104 (98-107) mmol/L Carbon Dioxide 21 L (22-30) mmol/L Anion Gap 10 mmol/L BUN 14 (7-17) mg/dL Creatinine 0.61 (0.52-1.04) mg/dL Est GFR (CKD-EPI)AfAm >90 (>60 ml/min/1.73 sqM) Est GFR (CKD-EPI)NonAf 90 (>60 ml/min/1.73 sqM) Glucose 106 H (74-99) mg/dL Plasma Lactic Acid Aditya (0.7-2.0) mmol/L Calcium 8.8 (8.4-10.2) mg/dL Total Bilirubin 0.4 (0.2-1.3) mg/dL AST 46 H (14-36) U/L ALT 28 (4-34) U/L Alkaline Phosphatase 105 (38-126) U/L Total Protein 7.0 (6.3-8.2) g/dL Albumin 4.1 (3.5-5.0) g/dL Lipase 253 (23-300) U/L Urine Color Urine Appearance (Clear) Urine pH (5.0-8.0) Ur Specific [place] (1.001-1.035) Urine Protein (Negative) Urine Glucose (UA) (Negative) Urine Ketones (Negative) Urine Blood (Negative) Urine Nitrite (Negative) Urine Bilirubin (Negative) Urine Urobilinogen (<2.0) mg/dL Ur Leukocyte Esterase (Negative) Urine RBC (0-5) /hpf Urine WBC (0-5) /hpf Ur Squamous Epith Cells (0-4) /hpf Amorphous Sediment (None) /hpf Urine Mucus (None) /hpf Disposition <Christiane Garcia - Last Filed: 12/11/20 21:57> <Vini Humphries - Last Filed: 12/14/20 07:24> Clinical Impression: Diverticulitis, Flank pain Disposition: ADMITTED IP TO THIS HOSP Condition: Fair
[2020-12-11 01:42] LABS: Basophils % (A) 0 %; Eosinophils # (A) 0.1 k/uL (0-0.7); Eosinophils % (A) 1 %; HCT 39.6 % (34.0-46.0); HGB 14.1 gm/dL (11.4-16.0); Lymphocytes % (A) 24 %; MCH 32.9 pg (25.0-35.0); MCHC 35.6 g/dL (31.0-37.0); MCV 92.5 fL (80.0-100.0); Mean Platelet Volume 7.6; Monocytes # (A) 0.5 k/uL (0-1.0); Monocytes % (A) 6 %; Neutrophils # (A) 5.7 k/uL (1.3-7.7); Neutrophils % (A) 67 %; Platelet Count 212 k/uL (150-450); RBC 4.28 m/uL (3.80-5.40); RDW 12.6 % (11.5-15.5); WBC 8.5 k/uL (3.8-10.6)
[2020-12-11 02:35] LABS: Amorphous Sediment,Urine Rare /hpf; Appearance,Urine Clear (Clear); Bilirubin,Urine Negative (Negative); Blood,Urine Negative (Negative); Color,Urine Light Yellow; Glucose,Urine (UA) Negative (Negative); Ketones,Urine Negative (Negative); Leukocyte Esterase,Urine Negative (Negative); Mucus,Urine Rare /hpf; Nitrite,Urine Negative (Negative); Protein,Urine 2+ (Negative); RBC,Urine <1 /hpf (0-5); Specific Gravity,Urine 1.006 (1.001-1.035); Squamous Epithelial Cell,Urine 1 /hpf (0-4); Urobilinogen,Urine <2.0 mg/dL (<2.0); WBC,Urine 2 /hpf (0-5)
[2020-12-11 03:17] LABS: ALT 28 U/L (4-34); AST 46 U/L (14-36); African American GFR (CKD) >90 (>60 ml/min/1.73 sqM); Albumin 4.1 g/dL (3.5-5.0); Alkaline Phosphatase 105 U/L (38-126); Anion Gap 10 mmol/L; Blood Urea Nitrogen 14 mg/dL (7-17); Calcium 8.8 mg/dL (8.4-10.2); Carbon Dioxide 21 mmol/L (22-30); Chloride 104 mmol/L (98-107); Glucose 106 mg/dL (74-99); Lipase 253 U/L (23-300); Non-African American GFR(CKD) 90 (>60 ml/min/1.73 sqM); Potassium 4.2 mmol/L (3.5-5.1); Sodium 135 mmol/L (137-145); Total Bilirubin 0.4 mg/dL (0.2-1.3)
--- NOTE | 2020-12-11 04:19 | CT ---
EXAMINATION TYPE: CT abdomen pelvis w con DATE OF EXAM: 12/11/2020 COMPARISON: 12/04/2020 HISTORY: left sided abd pain CT DLP: 816.9 mGycm Automated exposure control for dose reduction was used. CONTRAST: Performed with IV Contrast, patient injected with 100 mL of Isovue 300. Lung bases are clear of consolidation. There is mild subsegmental atelectasis left lung base. Heart a ppears enlarged. There is no pericardial effusion. There is no pleural effusion. Liver and spleen appear intact. The bile ducts are not dilated. There are clips from cholecystectomy. There is no pancreatic mass. There is some pancreatic atrophy. Stomach is intact. There is no adrenal mass. Kidneys have normal size. There is left-sided hydronephrosis and periureter al edema. Delayed images show a slightly delayed left side pyelogram compared to the right. I do not see a definite ureteral stone. Distal left ureter is not dilated. Bladder distends smoothly. Uterus a ppears normal. There are numerous sigmoid diverticula. There is minimal fluid in the left paracolic g utter. The appendix appears normal. There is no evidence of a bowel obstruction. There are some gas a nd fluid-filled small bowel loops that measure up to 3 cm. There is 2 cm cyst on the left ovary. Ther e is 3.5 cm cyst on the right ovary. The lumbar vertebra have normal alignment. There is no compression fracture. The bony pelvis appears intact. IMPRESSION: There is some left-sided hydronephrosis and hydroureter and ureteral edema could relate to inflammato ry process. No obstructing calculus seen. This appears similar to old exam. There is small amount of fluid in the left paracolic gutter. There are numerous sigmoid diverticula. This could be the sequela of some diverticulitis. Unchanged. There is evidence for some mild small bowel ileus which is a morrow ge compared to old exam. There are bilateral ovarian cysts and larger on the right side not changed compared to recent exam.
[2020-12-11] MEDS ORDERED: MORPHINE SULFATE 4 MG/ML SYRINGE IV PRN (05:52)
[2020-12-11] MEDS ORDERED: NALOXONE 0.4 MG/ML 1 ML VIAL IV PRN (05:52)
[2020-12-11] MEDS ORDERED: ONDANSETRON 4 MG/2 ML VIAL IVP PRN (05:52)
[2020-12-11] MEDS: SODIUM CHLORIDE 0.9% 1,000 ML IV SCH ×2 (07:36→12:01)
--- NOTE | 2020-12-11 08:14 | P.HPIM ---
History of Present Illness H&P Date: 12/11/20 Chief Complaint: LLQ pain The patient is a 75-year-old white female who was recently treated for UTI with Cipro. After being evaluated she stopped the medication after about 2-3 days. She states that the pain started coming back. Underlying previous history of diverticular disease in the past. Computed tomography scan was done due to the significant pain which showed hydroureter with mild hydronephrosis and edema. Question reactionary to diverticular disease. She is sitting comfortably now after being given ceftriaxone. The patient has been tolerating diet. No hematemesis or hematochezia. No significant fever stated. Tenderness in left lower quadrant with no rebound is noted. The patient will be started on empiric diverticular and UTI-type treatment. Review of Systems Constitutional: Denies chills, Denies fever Eyes: denies blurred vision, denies pain Ears, nose, mouth and throat: Denies headache, Denies sore throat Cardiovascular: Denies chest pain, Denies shortness of breath Gastrointestinal: Reports abdominal pain, Reports change in bowel habits, Denies diarrhea, Denies hematemesis, Denies hematochezia, Denies nausea, Denies vomiting Genitourinary: Denies dysuria, Denies hematuria Past Medical History Past Medical History: GERD/Reflux, Hyperlipidemia, Hypertension, Seizure Disorder, Thyroid Disorder Additional Past Medical History / Comment(s): hx. colon polyps, >40 yrs. had seizures History of Any Multi-Drug Resistant Organisms: None Reported Past Surgical History: Cholecystectomy, Orthopedic Surgery Additional Past Surgical History / Comment(s): colonoscopy, hand surg. Past Anesthesia/Blood Transfusion Reactions: No Reported Reaction Past Psychological History: Anxiety, Depression Smoking Status: Never smoker Past Alcohol Use History: None Reported Past Drug Use History: None Reported - Past Family History Mother Family Medical History: Cancer Father History Unknown: Yes Sister(s) Family Medical History: Cancer Brother(s) History Unknown: Yes Son(s) Family Medical History: No Reported History Daughter(s) Additional Family Medical History / Comment(s): went without oxygen at Medications and Allergies Home Medications Medication Instructions Recorded Confirmed Type Benazepril HCl 20 mg PO DAILY 02/24/14 12/11/20 History Cholecalciferol [Vitamin D3] 50 mcg PO BID 02/24/14 12/11/20 History Levothyroxine Sodium [Synthroid] 75 mcg PO DAILY 02/24/14 12/11/20 History Simvastatin [Zocor] 20 mg PO HS 02/24/14 12/11/20 History Famotidine [Pepcid] 20 mg PO BID #40 tablet 06/11/14 12/11/20 Rx Calcium Carbonate [Calcium] 600 mg PO BID 05/01/17 12/11/20 History Carboxymethylcellulose Sodium 1 drop BOTH EYES BID 06/06/18 12/11/20 History [Refresh Tears] amLODIPine [Norvasc] 10 mg PO DAILY 07/30/18 12/11/20 History Amoxic-Pot Clav 875-125Mg 1 tab PO TID 10 Days #30 tab 12/04/20 12/11/20 Rx [Augmentin 875-125] PHENobarbital 60 mg PO HS 12/04/20 12/11/20 History Cephalexin [Keflex] 500 mg PO Q6H 12/11/20 12/11/20 History Allergies Allergy/AdvReac Type Severity Reaction Status Date / Time aspirin Allergy Unknown Verified 12/04/20 13:14 fexofenadine HCl Allergy Nausea & Verified 12/04/20 13:14 [From Little] Vomiting & Diarrhea Hydantoins Allergy Unknown Verified 12/04/20 13:14 levofloxacin [From Levaquin] Allergy Unknown Verified 12/04/20 13:14 nitrofurantoin Allergy Rash/Hives Verified 12/04/20 13:14 [From Macrobid] phenytoin sodium Allergy Rash/Hives Verified 12/04/20 13:14 [From Dilantin] sulfamethoxazole Allergy Rash/Hives Verified 12/04/20 13:14 [From Bactrim] tetracycline Allergy Unknown Verified 12/04/20 13:14 trimethoprim Allergy Rash/Hives Verified 12/04/20 13:14 acetaminophen AdvReac Diarrhea Verified 12/04/20 13:14 [From Coricidin] amoxicillin [Amoxicillin] AdvReac Nausea & Verified 12/04/20 13:14 Vomiting & Diarrhea chlorpheniramine maleate AdvReac Diarrhea Verified 12/04/20 13:14 [From Coricidin] codeine AdvReac DIZZINESS Verified 12/04/20 13:14 phenylpropanolamine HCl AdvReac Diarrhea Verified 12/04/20 13:14 [From Coricidin] prednisone AdvReac Nausea & Verified 12/04/20 13:14 Vomiting & Diarrhea propoxyphene HCl AdvReac DIZZINESS Verified 12/04/20 13:14 [From Darvon] narcotic Allergy LETHARGIC/H Uncoded 12/04/20 12:06 EADACHES Physical Exam Vitals: Vital Signs Temp Pulse Resp BP Pulse Ox 12/11/20 06:16 71 14 130/61 98 12/11/20 05:54 80 18 164/74 100 12/11/20 04:00 54 L 18 174/71 95 12/11/20 01:24 58 L 14 164/71 98 12/11/20 00:19 97.8 F 57 L 20 187/81 98 Intake and Output 12/10/20 12/11/20 12/11/20 22:59 06:59 14:59 Other: Weight 68.039 kg - Constitutional General appearance: no acute distress - EENT Eyes: EOMI - Neck Neck: no lymphadenopathy - Respiratory Respiratory: bilateral: CTA - Cardiovascular Rhythm: regular Heart sounds: abnormal: S1, S2 Abnormal Heart Sounds: no S3 Gallop - Gastrointestinal General gastrointestinal: soft, tenderness Localized gastrointestinal: tender: LLQ - Integumentary Integumentary: decreased turgor Results CBC & Chem 7: 12/11/20 01:07 12/11/20 02:30 Labs: Abnormal Lab Results - Last 24 Hours (Table) 12/11/20 12/11/20 Range/Units 02:00 02:30 Sodium 135 L (137-145) mmol/L Carbon Dioxide 21 L (22-30) mmol/L Glucose 106 H (74-99) mg/dL AST 46 H (14-36) U/L Urine Protein 2+ H (Negative) Amorphous Sediment Rare H (None) /hpf Urine Mucus Rare H (None) /hpf Assessment and Plan (1) Hydronephrosis Current Visit: Yes Status: Acute Code(s): N13.30 - UNSPECIFIED HYDRONEPHROSIS SNOMED Code(s): 17751020 (2) Diverticulitis Current Visit: Yes Status: Acute Code(s): K57.92 - DVTRCLI OF INTEST, PART UNSP, W/O PERF OR ABSCESS W/O BLEED SNOMED Code(s): 533882416 (3) Flank pain Current Visit: Yes Status: Acute Code(s): R10.9 - UNSPECIFIED ABDOMINAL PAIN SNOMED Code(s): 747319332 Plan: We'll go ahead and empirically treat with Levaquin. The patient seems clinically improved this morning. Continue IV hydration. Reconcile medications as necessary. Anticipate discharge in next 24-48 hours if trajectory of recovery is appropriat e
[2020-12-11] MEDS: LEVOFLOXACIN 500MG-D5W PMX 500 MG in DEXTROSE/WATER 1 100ML.BAG IVPB SCH (12:00)
[2020-12-11] MEDS: FAMOTIDINE 20 MG TAB PO SCH (22:51)
[2020-12-11] MEDS: CALCIUM CARBONATE 500 MG CHEWABLE PO SCH (22:51)
[2020-12-11] MEDS: ARTIFICIAL TEARS-HYPROMELLOSE DROPS 15 ML BTL BOTH EYES SCH (22:51)
[2020-12-11] MEDS: CHOLECALCIFEROL 25 MCG (1000 IU) TABLET PO SCH (22:51)
[2020-12-11] MEDS: ATORVASTATIN 10 MG TAB PO SCH (22:51)
[2020-12-12] MEDS: LEVOTHYROXINE 75 MCG TAB PO SCH (06:09)
[2020-12-12] MEDS: LEVOFLOXACIN 500MG-D5W PMX 500 MG in DEXTROSE/WATER 1 100ML.BAG IVPB SCH (07:45)
[2020-12-12] MEDS: amLODIPine 10 MG TAB PO SCH (07:45)
[2020-12-12] MEDS: FAMOTIDINE 20 MG TAB PO SCH ×2 (07:45→21:18)
[2020-12-12] MEDS: lisinopriL 20 MG TAB PO SCH (07:46)
[2020-12-12] MEDS: CALCIUM CARBONATE 500 MG CHEWABLE PO SCH ×2 (07:46→21:18)
[2020-12-12] MEDS: ARTIFICIAL TEARS-HYPROMELLOSE DROPS 15 ML BTL BOTH EYES SCH ×2 (07:46→21:18)
[2020-12-12] MEDS: CHOLECALCIFEROL 25 MCG (1000 IU) TABLET PO SCH ×2 (07:46→21:18)
[2020-12-12 12:19] LABS: HCT 40.9 % (37.2-46.3); HGB 13.4 g/dL (12.0-15.0); MCH 31.4 pg (27.0-32.0); MCHC 32.8 g/dL (32.0-37.0); MCV 95.8 fL (80.0-97.0); Mean Platelet Volume 11.1 fL (9.5-12.2); Platelet Count 226 X 10*3/uL (140-440); RBC 4.27 X 10*6/uL (4.10-5.20); RDW 12.7 % (11.5-14.5); WBC 7.58 X 10*3/uL (4.50-10.00)
[2020-12-12 12:42] LABS: African American GFR (CKD) 98.9 (60.0-200.0); Albumin 3.8 g/dL (3.80-4.90); Albumin/Globulin Ratio 1.46 (1.60-3.17); Anion Gap 7.5 mmol/L (4.00-12.00); BUN/Creat Ratio 12.86 Ratio (12.00-20.00); Calcium 8.7 mg/dL (8.7-10.3); Carbon Dioxide 25.5 mmol/L (21.6-31.8); Globulin 2.6 g/dL (1.6-3.3); Non-African American GFR(CKD) 85.4 (60.0-200.0); Potassium 4.4 mmol/L (3.5-5.5); Total Bilirubin 0.4 mg/dL (0.2-1.2); Total Protein 6.4 g/dL (6.2-8.2)
[2020-12-12] MEDS: SODIUM CHLORIDE 0.9% 1,000 ML IV SCH ×2 (15:05→21:31)
--- NOTE | 2020-12-12 16:38 | P.PN ---
Subjective Progress Note Date: 12/12/20 Principal diagnosis: Diverticulitis Ms. Rodgers is a 75-year-old female with a past medical history of GERD, hypertension, hyperlipidemia, seizure disorder, thyroid disorder coming in with a chief complaint of pain in the left lower quadrant. Patient was recently seen in the emergency department on 12/04/2020, discharged home on Augmentin for diverticulitis. Patient had a CAT scan of the abdomen and pelvis on 12/04/2020 showing mild inflammatory changes in the left paraColic gutter extending adjacent to the sigmoid colon , correlate for salpingitis versus mild divertic ulitis. So patient stopped taking antibiotics for the past couple of days and coming back with left abdominal quadrant pain. On this admission patient had a CAT scan of the abdomen and pelvis done yesterday showing some left sided hydronephrosis and hydroureter and the right leg edema could related to inflammatory process. There is small amount of fluid in the left paracolic gutter. She is empirically started on levofloxacin and admitted for further evaluation. On 12/12/2020- patient is seen and examined at the bedside. She is comfortably lying in bed appears to be in no acute distress. Patient states that she does not have left abdominal pain anymore. She denies having any suprapubic pain. She denies having any dysuria or hematuria. She denies having any fevers chills or rigors. No complaints of lower upper back pain. On review of other systems she denies having any chest pain or palpitations. No cough or difficulty in breathing. No abdominal pain nausea vomiting or diarrhea. On reviewing her vitals temperature of 97.5, heart rate 59, respiratory rate 17, blood pressure 147/69, saturating at 100% on room air. Pain will last white count is 7.58, hemoglobin 13.4, platelets 226. Sodium 139, potassium 4.4, chloride 106, bicarbonate 20, BUN 9, creatinine 0.7. Albumin 3.8) 2.6. Urine analysis is positive for 2+ protein and negative for nitrites, leukocyte esterase. Patient's medications has been reviewed she is on Norvasc, Lipitor, Tums, vitamin D3, Pepcid, levofloxacin, Synthroid, Zestril, morphine, Narcan, Zofran, IV fluids at 75 per Objective - Vital Signs Vital signs: Vital Signs Temp 97.6 F 12/12/20 07:21 Pulse 57 L 12/12/20 08:00 Resp 18 12/12/20 08:00 BP 165/76 12/12/20 07:21 Pulse Ox 100 12/12/20 07:21 Intake & Output 12/11/20 12/12/20 12/12/20 18:59 06:59 18:59 Weight 68.039 kg Other: # Voids 3 2 - Exam PHYSICAL EXAMINATION: GENERAL: The patient is alert and oriented x3, not in any acute distress. Well developed, well nourished. HEENT: Pupils are round and equally reacting to light. EOMI. No scleral icterus. No conjunctival pallor. Normocephalic, atraumatic. No pharyngeal erythema. No thyromegaly. CARDIOVASCULAR: S1 and S2 present. No murmurs, rubs, or gallops. PULMONARY: Chest is clear to auscultation, no wheezing or crackles. ABDOMEN: Soft, nondistended, normoactive bowel sounds. No palpable organomegaly. No CVA tenderness. No tenderness at the left lower quadrant. MUSCULOSKELETAL: No joint swelling or deformity. EXTREMITIES: No pedal edema NEUROLOGICAL: Gross neurological examination did not reveal any focal deficits. SKIN:No rash - Labs CBC & Chem 7: 12/12/20 07:00 12/12/20 07:00 Assessment and Plan Assessment: ASSESSMENT Left hydronephrosis ? Diverticulitis Hypertension Hyperlipidemia Seizure disorder Thyroid disorder GERD History of colonic polyps History of anxiety with depression PLAN: Patient is started empirically on levofloxacin, patient's symptoms of left lower quadrant pain seems to be improving. Patient urine analysis negative for UTI. Further recommendations to follow depending on the progress of the patient.
[2020-12-12] MEDS: ATORVASTATIN 10 MG TAB PO SCH (21:17)
[2020-12-13] MEDS: LEVOTHYROXINE 75 MCG TAB PO SCH (05:06)
[2020-12-13] MEDS: FAMOTIDINE 20 MG TAB PO SCH ×2 (08:06→20:31)
[2020-12-13] MEDS: CALCIUM CARBONATE 500 MG CHEWABLE PO SCH ×2 (08:06→20:31)
[2020-12-13] MEDS: LEVOFLOXACIN 500 MG TAB PO SCH (08:06)
[2020-12-13] MEDS: CHOLECALCIFEROL 25 MCG (1000 IU) TABLET PO SCH ×2 (08:06→20:31)
[2020-12-13] MEDS: ARTIFICIAL TEARS-HYPROMELLOSE DROPS 15 ML BTL BOTH EYES SCH ×2 (08:06→20:33)
[2020-12-13] MEDS: amLODIPine 10 MG TAB PO SCH (08:06)
[2020-12-13] MEDS: lisinopriL 20 MG TAB PO SCH (08:06)
[2020-12-13 09:33] LABS: Basophils # (A) 0.06 X 10*3/uL (0.00-0.10); Basophils % (A) 0.6 %; Eosinophils # (A) 0.07 X 10*3/uL (0.04-0.35); Eosinophils % (A) 0.7 %; HCT 40.6 % (37.2-46.3); HGB 13.8 g/dL (12.0-15.0); Lymphocytes # (A) 1.79 X 10*3/uL (0.90-5.00); Lymphocytes % (A) 18.8 %; MCH 32.2 pg (27.0-32.0); MCV 94.9 fL (80.0-97.0); Mean Platelet Volume 10.9 fL (9.5-12.2); Monocytes % (A) 6.3 %; Neutrophils # (A) 6.98 X 10*3/uL (1.80-7.70); Neutrophils % (A) 73.4 %; Platelet Count 221 X 10*3/uL (140-440); RBC 4.28 X 10*6/uL (4.10-5.20); RDW 12.8 % (11.5-14.5); WBC 9.52 X 10*3/uL (4.50-10.00)
[2020-12-13 09:58] LABS: African American GFR (CKD) 84.2 (60.0-200.0); Calcium 8.8 mg/dL (8.7-10.3); Non-African American GFR(CKD) 72.6 (60.0-200.0); Potassium 3.9 mmol/L (3.5-5.5)
[2020-12-13] MEDS: SODIUM CHLORIDE 0.9% 1,000 ML IV SCH (10:59)
[2020-12-13] MEDS: ATORVASTATIN 10 MG TAB PO SCH (20:31)
[2020-12-14 01:49] VITALS: TEMP 98.2
--- NOTE | 2020-12-14 02:17 | P.PN ---
Subjective Progress Note Date: 12/13/20 Principal diagnosis: Diverticulitis/UTI Ms. Rodgers is a 75-year-old female with a past medical history of GERD, hypertension, hyperlipidemia, seizure disorder, thyroid disorder coming in with a chief complaint of pain in the left lower quadrant. Patient was recently seen in the emergency department on 12/04/2020, discharged home on Augmentin for diverticulitis. Patient had a CAT scan of the abdomen and pelvis on 12/04/2020 showing mild inflammatory changes in the left paraColic gutter extending adjacent to the sigmoid colon , correlate for salpingitis versus mild div erticulitis. So patient stopped taking antibiotics for the past couple of days and coming back with left abdominal quadrant pain. On this admission patient had a CAT scan of the abdomen and pelvis done yesterday showing some left sided hydronephrosis and hydroureter and the right leg edema could related to inflammatory process. There is small amount of fluid in the left paracolic gutter. She is empirically started on levofloxacin and admitted for further evaluation. On 12/12/2020- patient is seen and examined at the bedside. She is comfortably lying in bed appears to be in no acute distress. Patient states that she does not have left abdominal pain anymore. She denies having any suprapubic pain. She denies having any dysuria or hematuria. She denies having any fevers chills or rigors. No complaints of lower upper back pain. On review of other systems she denies having any chest pain or palpitations. No cough or difficulty in breathing. No abdominal pain nausea vomiting or diarrhea. On reviewing her vitals temperature of 97.5, heart rate 59, respiratory rate 17, blood pressure 147/69, saturating at 100% on room air. Pain will last white count is 7.58, hemoglobin 13.4, platelets 226. Sodium 139, potassium 4.4, chloride 106, bicarbonate 20, BUN 9, creatinine 0.7. Albumin 3.8) 2.6. Urine analysis is positive for 2+ protein and negative for nitrites, leukocyte esterase. On 12/13/2020-patient is seen and examined at bedside. She is lying comfortably in bed appears to be no acute distress. Patient does not have any complaints of lower abdominal pain no dysuria or hematuria. On reviewing the patient's vitals temperature 98.2, heart rate 51, respiratory rate 16, blood pressure 126/69 saturating at 96% on room air. On reviewing the labs from this morning white count of 9.5, hemoglobin 13.8, platelets 221. Sodium 140, potassium 3.9, chloride 105, bicarb 27, BUN 8, creatinine 0.8. Patient's medications has been reviewed she is on Norvasc, Lipitor, Tums, vitamin D3, Pepcid, levofloxacin, Synthroid, Zestril, morphine, Narcan, Zofran, IV fluids at 75 per Objective - Vital Signs Vital signs: Vital Signs Temp 98.2 F 12/14/20 01:48 Pulse 51 L 12/14/20 01:48 Resp 16 12/14/20 01:48 BP 126/69 12/14/20 01:48 Pulse Ox 96 12/14/20 01:48 Intake & Output 12/13/20 12/13/20 12/14/20 06:59 18:59 06:59 Other: # Voids 3 3 3 - Exam PHYSICAL EXAMINATION: GENERAL: The patient is alert and oriented x3, not in any acute distress. Well developed, well nourished. HEENT: Pupils are round and equally reacting to light. EOMI. CARDIOVASCULAR: S1 and S2 present. No murmurs, rubs, or gallops. PULMONARY: Chest is clear to auscultation, no wheezing or crackles. ABDOMEN: Soft, nondistended, normoactive bowel sounds. No palpable organomegaly. No CVA tenderness. No tenderness at the left lower quadrant. MUSCULOSKELETAL: No joint swelling or deformity. EXTREMITIES: No pedal edema NEUROLOGICAL: Gross neurological examination did not reveal any focal deficits. - Labs CBC & Chem 7: 12/13/20 06:33 12/13/20 06:33 Labs: Abnormal Lab Results - Last 24 Hours (Table) 12/13/20 12/13/20 Range/Units 06:33 06:33 MCH 32.2 H (27.0-32.0) pg BUN 8.0 L (9.0-27.0) mg/dL BUN/Creatinine Ratio 10.00 L (12.00-20.00) Ratio Assessment and Plan Assessment: ASSESSMENT Left hydronephrosis ? Diverticulitis Hypertension Hyperlipidemia Seizure disorder Thyroid disorder GERD History of colonic polyps History of anxiety with depression PLAN: Patient is started empirically on levofloxacin, patient's symptoms of left lower quadrant pain seems to be improving. Reviewed labs and medications. Patient urine analysis negative for UTI. Further recommendations to follow depending on the progress of the patient. Anticipate discharge in the next 24 hrs.
[2020-12-14] MEDS: SODIUM CHLORIDE 0.9% 1,000 ML IV SCH (02:22)
[2020-12-14] MEDS: LEVOTHYROXINE 75 MCG TAB PO SCH (07:40)
[2020-12-14] MEDS: LEVOFLOXACIN 500 MG TAB PO SCH (07:40)
[2020-12-14] MEDS: ARTIFICIAL TEARS-HYPROMELLOSE DROPS 15 ML BTL BOTH EYES SCH (07:40)
[2020-12-14] MEDS: lisinopriL 20 MG TAB PO SCH (07:40)
[2020-12-14] MEDS: CALCIUM CARBONATE 500 MG CHEWABLE PO SCH (07:40)
[2020-12-14] MEDS: amLODIPine 10 MG TAB PO SCH (07:40)
[2020-12-14] MEDS: FAMOTIDINE 20 MG TAB PO SCH (07:40)
[2020-12-14] MEDS: CHOLECALCIFEROL 25 MCG (1000 IU) TABLET PO SCH (07:40)
--- NOTE | 2020-12-14 08:42 | P.DS ---
Providers Date of admission: 12/11/20 05:53 Attending physician: Nish Trimble Primary care physician: Nish Trimble - Discharge Diagnosis(es) (1) Hydronephrosis Current Visit: Yes Status: Acute (2) Diverticulitis Current Visit: Yes Status: Acute (3) Flank pain Current Visit: Yes Status: Acute Hospital Course: This discharge summary 75-year-old white female essentially admitted for UTI and diverticulitis. The patient was stabilized with appropriate Levaquin and now is tolerating clear liquids. We will advance low-residue diet. Minimal pain is noted. No fever is stated. Appropriate resolution of symptoms is perceived by the patient and she'll be discharged to follow-up in about 3 days. Patient Condition at Discharge: Fair Plan - Discharge Summary Discharge Rx Participant: Yes New Discharge Prescriptions: New Levofloxacin [Levaquin] 500 mg PO Q24H #7 tab Continue Simvastatin [Zocor] 20 mg PO HS Levothyroxine Sodium [Synthroid] 75 mcg PO DAILY Cholecalciferol [Vitamin D3 (25 Mcg = 1000 Iu)] 50 mcg PO BID Benazepril HCl 20 mg PO DAILY Famotidine [Pepcid] 20 mg PO BID #40 tablet Calcium Carbonate [Calcium] 600 mg PO BID Carboxymethylcellulose Sodium [Refresh Tears] 1 drop BOTH EYES BID amLODIPine [Norvasc] 10 mg PO DAILY PHENobarbital 60 mg PO HS Discontinued Amoxic-Pot Clav 875-125Mg [Augmentin 875-125] 1 tab PO TID 10 Days #30 tab Cephalexin [Keflex] 500 mg PO Q6H Discharge Medication List Benazepril HCl 20 mg PO DAILY 02/24/14 [History] Cholecalciferol [Vitamin D3 (25 Mcg = 1000 Iu)] 50 mcg PO BID 02/24/14 [History] Levothyroxine Sodium [Synthroid] 75 mcg PO DAILY 02/24/14 [History] Simvastatin [Zocor] 20 mg PO HS 02/24/14 [History] Famotidine [Pepcid] 20 mg PO BID #40 tablet 06/11/14 [Rx] Calcium Carbonate [Calcium] 600 mg PO BID 05/01/17 [History] Carboxymethylcellulose Sodium [Refresh Tears] 1 drop BOTH EYES BID 06/06/18 [History] amLODIPine [Norvasc] 10 mg PO DAILY 07/30/18 [History] PHENobarbital 60 mg PO HS 12/04/20 [History] Levofloxacin [Levaquin] 500 mg PO Q24H #7 tab 12/14/20 [Rx] Follow up Appointment(s)/Referral(s): Nish Trimble MD [Primary Care Provider] - 1-2 days
[2020-12-14 15:19] VITALS: BP 116/71; PULSE 58; RESP 18
== END 2020-12-14 15:55 | disposition home or self-care (01) | DRG 690 ==
LOC: EC 00:13 → 4SSUR 05:53
PROVIDERS: ADMIT Family Medicine; ATTEND Family Medicine
DX: N13.6 Pyonephrosis (principal); K57.92 Diverticulitis of intestine, part unspecified, without perforation or abscess without bleeding; G40.909 Epilepsy, unspecified, not intractable, without status epilepticus; E78.5 Hyperlipidemia, unspecified; I10 Essential (primary) hypertension; K21.9 Gastro-esophageal reflux disease without esophagitis; F32.9 Major depressive disorder, single episode, unspecified; F41.9 Anxiety disorder, unspecified; Z88.6 Allergy status to analgesic agent; Z88.1 Allergy status to other antibiotic agents; Z88.2 Allergy status to sulfonamides; Z88.8 Allergy status to other drugs, medicaments and biological substances; Z88.5 Allergy status to narcotic agent; Z79.890 Hormone replacement therapy; Z79.899 Other long term (current) drug therapy; Z86.010 Personal history of colon polyps
CPT/HCPCS: 36415; 74177; 80048; 80053; 81001; 83605; 83690; 85025; 85027; 99285

== ENCOUNTER 2021-02-06 00:08 | Inpatient (IN) | payer MEDICARE, OTHER ==
--- NOTE | 2021-02-06 00:30 | XR ---
EXAMINATION TYPE: XR chest 1V DATE OF EXAM: 02/06/2021 COMPARISON: 11/19/2017 HISTORY: Altered mental status. TECHNIQUE: Single view FINDINGS: Heart is enlarged. There is no heart failure. Lungs are clear of consolidation. There are n o hilar masses. Bony thorax appears intact. IMPRESSION: Mild cardiomegaly. No acute lung disease. Heart appears slightly increased compared to ol d exam.
[2021-02-06 00:42] LABS: Basophils # (A) 0.1 k/uL (0-0.2); Basophils % (A) 1 %; Eosinophils # (A) 0.1 k/uL (0-0.7); Eosinophils % (A) 2 %; HCT 40.5 % (34.0-46.0); HGB 13.7 gm/dL (11.4-16.0); Lymphocytes # (A) 2.1 k/uL (1.0-4.8); Lymphocytes % (A) 31 %; MCH 32.7 pg (25.0-35.0); MCHC 33.8 g/dL (31.0-37.0); MCV 96.8 fL (80.0-100.0); Mean Platelet Volume 8.7; Monocytes # (A) 0.4 k/uL (0-1.0); Monocytes % (A) 6 %; Neutrophils # (A) 3.9 k/uL (1.3-7.7); Neutrophils % (A) 56 %; Platelet Count 171 k/uL (150-450); RBC 4.18 m/uL (3.80-5.40); RDW 13.9 % (11.5-15.5); WBC 6.9 k/uL (3.8-10.6)
--- NOTE | 2021-02-06 00:42 | ED ---
Neuro HPI - General Chief Complaint: Neuro Symptoms/Deficit Stated Complaint: Stroke Time Seen by Provider: 02/06/21 00:11 Source: patient, EMS Mode of arrival: EMS Limitations: no limitations - History of Present Illness Is the patient presenting with stroke symptoms?: Yes Last Known Well Date: 02/05/21 Last Known Well Time: 23:30 Onset/Timin -: minutes(s) Initial Comments: This patient is a 75-year-old woman with history of hypertension who presents with complaint of right leg weakness and numbness. The patient states that she was preparing to go to bed tonight around 11:15 PM. She went into the bathroom and then noticed that her right leg began to feel numb and she was having a hard time walking. Family called EMS, who state that on arrival she was having right arm weakness as well, with right arm drift on the exam. They transported patient here. Patient denies headache, change in vision, speech or swallowing. No chest pain or dyspnea. Location: right arm, right leg History of same: No Place: home Severity: moderate Quality: weak, numb Improves With: time Worsens With: none On Anticoagulants: No Context: sudden onset Associated Symptoms: denies other symptoms Treatments Prior to Arrival: none - Related Data Home Medications: Home Medications Medication Instructions Recorded Confirmed Benazepril HCl 20 mg PO DAILY 02/24/14 02/06/21 Cholecalciferol [Vitamin D3 (25 50 mcg PO BID 02/24/14 02/06/21 Mcg = 1000 Iu)] Levothyroxine Sodium [Synthroid] 75 mcg PO DAILY 02/24/14 02/06/21 Calcium Carbonate [Calcium] 600 mg PO BID 05/01/17 02/06/21 Carboxymethylcellulose Sodium 1 drop BOTH EYES BID 06/06/18 02/06/21 [Refresh Tears] amLODIPine [Norvasc] 10 mg PO DAILY 07/30/18 02/06/21 PHENobarbital 60 mg PO HS 12/04/20 02/06/21 Previous Rx's Medication Instructions Recorded Famotidine [Pepcid] 20 mg PO BID #40 tablet 06/11/14 Atorvastatin [Lipitor] 40 mg PO HS #30 tab 02/08/21 Clopidogrel [Plavix] 75 mg PO DAILY #30 tab 02/08/21 Allergies/Adverse Reactions: Allergies Allergy/AdvReac Type Severity Reaction Status Date / Time aspirin Allergy Unknown Verified 02/06/21 08:16 fexofenadine HCl Allergy Nausea & Verified 02/06/21 08:16 [From Little] Vomiting & Diarrhea Hydantoins Allergy Unknown Verified 02/06/21 08:16 nitrofurantoin Allergy Rash/Hives Verified 02/06/21 08:16 [From Macrobid] phenytoin sodium Allergy Rash/Hives Verified 02/06/21 08:16 [From Dilantin] sulfamethoxazole Allergy Rash/Hives Verified 02/06/21 08:16 [From Bactrim] tetracycline Allergy Unknown Verified 02/06/21 08:16 trimethoprim Allergy Rash/Hives Verified 02/06/21 08:16 acetaminophen AdvReac Diarrhea Verified 02/06/21 08:16 [From Coricidin] amoxicillin [Amoxicillin] AdvReac Nausea & Verified 02/06/21 08:16 Vomiting & Diarrhea chlorpheniramine maleate AdvReac Diarrhea Verified 02/06/21 08:16 [From Coricidin] codeine AdvReac DIZZINESS Verified 02/06/21 08:16 levofloxacin [From Levaquin] AdvReac Diarrhea Verified 02/06/21 08:16 phenylpropanolamine HCl AdvReac Diarrhea Verified 02/06/21 08:16 [From Coricidin] prednisone AdvReac Nausea & Verified 02/06/21 08:16 Vomiting & Diarrhea propoxyphene HCl AdvReac DIZZINESS Verified 02/06/21 08:16 [From Darvon] narcotic Allergy LETHARGIC/H Uncoded 12/04/20 12:06 EADACHES Review of Systems ROS Statement: Those systems with pertinent positive or pertinent negative responses have been documented in the HPI. ROS Other: All systems not noted in ROS Statement are negative. Constitutional: Denies: fever, weakness Eyes: Denies: eye pain, vision change ENT: Denies: ear pain, hearing loss Respiratory: Denies: cough, dyspnea Cardiovascular: Denies: chest pain, palpitations, edema, syncope Gastrointestinal: Denies: abdominal pain, nausea, vomiting, diarrhea Genitourinary: Denies: dysuria, hematuria Musculoskeletal: Denies: back pain Skin: Denies: rash Neurological: Reports: weakness, numbness, abnormal gait. Denies: headache, paresthesias, confusion, vertigo Hematological/Lymphatic: Denies: easy bleeding General Exam Limitations: no limitations General appearance: alert, in no apparent distress Head exam: Present: atraumatic, normocephalic Eye exam: Present: normal appearance. Absent: scleral icterus, conjunctival injection ENT exam: Present: mucous membranes dry Neck exam: Present: normal inspection, full ROM Respiratory exam: Present: normal lung sounds bilaterally. Absent: respiratory distress, wheezes, rales, rhonchi, stridor, accessory muscle use Cardiovascular Exam: Present: regular rate, normal rhythm, normal heart sounds. Absent: systolic murmur, diastolic murmur, rubs, gallop GI/Abdominal exam: Present: soft. Absent: distended, tenderness, guarding, rebound, rigid Extremities exam: Present: normal inspection, normal capillary refill. Absent: pedal edema, calf tenderness Back exam: Present: normal inspection. Absent: CVA tenderness (R), CVA tend erness (L) Neurological exam: Present: alert, oriented X3, CN II-XII intact Expanded Neurological exam: Present: protecting the airway. Absent: inattentive, memory loss-remote event, memory loss-recent event, ataxia, receptive aphasia, expressi ve aphasia, total aphasia, tremor Patient oriented to: Present: person, place, time Speech: Present: fluid speech Cranial nerves: EOM's Intact: Normal, Tongue Deviation: Normal, Facial Sensation: Normal Cerebellar function: Finger to Nose: Normal Sensory exam: Upper Extremity Light Touch: Normal, Lower Extremity Light Touch: Normal Motor strength exam: RUE: 5, LUE: 5, RLE: 5, LLE: 5 Eye Response: (4) open spontaneously Motor Response: (6) obeys commands Verbal Response: (5) oriented Skin exam: Present: warm, dry, intact, normal color. Absent: rash Stroke MDM - Lab Data Result diagrams: 02/06/21 00:18 02/06/21 00:18 Lab Results 02/06/21 02/06/21 02/06/21 Range/Units 00:18 00:18 00:18 WBC 6.9 (3.8-10.6) k/uL RBC 4.18 (3.80-5.40) m/uL Hgb 13.7 (11.4-16.0) gm/dL Hct 40.5 (34.0-46.0) % MCV 96.8 (80.0-100.0) fL MCH 32.7 (25.0-35.0) pg MCHC 33.8 (31.0-37.0) g/dL RDW 13.9 (11.5-15.5) % Plt Count 171 (150-450) k/uL MPV 8.7 Neutrophils % 56 % Lymphocytes % 31 % Monocytes % 6 % Eosinophils % 2 % Basophils % 1 % Neutrophils # 3.9 (1.3-7.7) k/uL Lymphocytes # 2.1 (1.0-4.8) k/uL Monocytes # 0.4 (0-1.0) k/uL Eosinophils # 0.1 (0-0.7) k/uL Basophils # 0.1 (0-0.2) k/uL PT 10.7 (9.0-12.0) sec INR 1.0 (<1.2) APTT 22.3 (22.0-30.0) sec Sodium 132 L (137-145) mmol/L Potassium 4.0 (3.5-5.1) mmol/L Chloride 99 (98-107) mmol/L Carbon Dioxide 22 (22-30) mmol/L Anion Gap 11 mmol/L BUN 19 H (7-17) mg/dL Creatinine 0.76 (0.52-1.04) mg/dL Est GFR (CKD-EPI)AfAm 90 (>60 ml/min/1.73 sqM) Est GFR (CKD-EPI)NonAf 78 (>60 ml/min/1.73 sqM) Glucose 117 H (74-99) mg/dL Estimated Ave Glu mg/dL Hemoglobin A1c (4.0-6.0) % Calcium 9.3 (8.4-10.2) mg/dL Total Bilirubin 0.4 (0.2-1.3) mg/dL AST 40 H (14-36) U/L ALT 20 (4-34) U/L Alkaline Phosphatase 115 (38-126) U/L Troponin I (0.000-0.034) ng/mL Total Protein 7.3 (6.3-8.2) g/dL Albumin 4.4 (3.5-5.0) g/dL Triglycerides (0.0-149.0) mg/dL Cholesterol (0-200) mg/dL LDL Cholesterol, Calc (0.0-131.0) mg/dL VLDL Cholesterol, Calc (5.00-40.00) mg/dL HDL Cholesterol (40.0-60.0) mg/dL Cholesterol/HDL Ratio TSH (0.465-4.680) mIU/L 02/06/21 02/06/21 02/06/21 Range/Units 00:18 00:18 00:18 WBC (3.8-10.6) k/uL RBC (3.80-5.40) m/uL Hgb (11.4-16.0) gm/dL Hct (34.0-46.0) % MCV (80.0-100.0) fL MCH (25.0-35.0) pg MCHC (31.0-37.0) g/dL RDW (11.5-15.5) % Plt Count (150-450) k/uL MPV Neutrophils % % Lymphocytes % % Monocytes % % Eosinophils % % Basophils % % Neutrophils # (1.3-7.7) k/uL Lymphocytes # (1.0-4.8) k/uL Monocytes # (0-1.0) k/uL Eosinophils # (0-0.7) k/uL Basophils # (0-0.2) k/uL PT (9.0-12.0) sec INR (<1.2) APTT (22.0-30.0) sec Sodium (137-145) mmol/L Potassium (3.5-5.1) mmol/L Chloride (98-107) mmol/L Carbon Dioxide (22-30) mmol/L Anion Gap mmol/L BUN (7-17) mg/dL Creatinine (0.52-1.04) mg/dL Est GFR (CKD-EPI)AfAm (>60 ml/min/1.73 sqM) Est GFR (CKD-EPI)NonAf (>60 ml/min/1.73 sqM) Glucose (74-99) mg/dL Estimated Ave Glu mg/dL Hemoglobin A1c (4.0-6.0) % Calcium (8.4-10.2) mg/dL Total Bilirubin (0.2-1.3) mg/dL AST (14-36) U/L ALT (4-34) U/L Alkaline Phosphatase (38-126) U/L Troponin I <0.012 (0.000-0.034) ng/mL Total Protein (6.3-8.2) g/dL Albumin (3.5-5.0) g/dL Triglycerides 83.0 (0.0-149.0) mg/dL Cholesterol 166 (0-200) mg/dL LDL Cholesterol, Calc 92.4 (0.0-131.0) mg/dL VLDL Cholesterol, Calc 16.60 (5.00-40.00) mg/dL HDL Cholesterol 57.0 (40.0-60.0) mg/dL Cholesterol/HDL Ratio 2.91 TSH 2.610 (0.465-4.680) mIU/L 02/06/21 02/06/21 02/06/21 Range/Units 03:34 07:22 07:22 WBC (3.8-10.6) k/uL RBC (3.80-5.40) m/uL Hgb (11.4-16.0) gm/dL Hct (34.0-46.0) % MCV (80.0-100.0) fL MCH (25.0-35.0) pg MCHC (31.0-37.0) g/dL RDW (11.5-15.5) % Plt Count (150-450) k/uL MPV Neutrophils % % Lymphocytes % % Monocytes % % Eosinophils % % Basophils % % Neutrophils # (1.3-7.7) k/uL Lymphocytes # (1.0-4.8) k/uL Monocytes # (0-1.0) k/uL Eosinophils # (0-0.7) k/uL Basophils # (0-0.2) k/uL PT (9.0-12.0) sec INR (<1.2) APTT (22.0-30.0) sec Sodium (137-145) mmol/L Potassium (3.5-5.1) mmol/L Chloride (98-107) mmol/L Carbon Dioxide (22-30) mmol/L Anion Gap mmol/L BUN (7-17) mg/dL Creatinine (0.52-1.04) mg/dL Est GFR (CKD-EPI)AfAm (>60 ml/min/1.73 sqM) Est GFR (CKD-EPI)NonAf (>60 ml/min/1.73 sqM) Glucose (74-99) mg/dL Estimated Ave Glu mg/dL 105 Hemoglobin A1c 5.3 (4.0-6.0) % Calcium (8.4-10.2) mg/dL Total Bilirubin (0.2-1.3) mg/dL AST (14-36) U/L ALT (4-34) U/L Alkaline Phosphatase (38-126) U/L Troponin I 0.029 0.047 H* (0.000-0.034) ng/mL Total Protein (6.3-8.2) g/dL Albumin (3.5-5.0) g/dL Triglycerides (0.0-149.0) mg/dL Cholesterol (0-200) mg/dL LDL Cholesterol, Calc (0.0-131.0) mg/dL VLDL Cholesterol, Calc (5.00-40.00) mg/dL HDL Cholesterol (40.0-60.0) mg/dL Cholesterol/HDL Ratio TSH (0.465-4.680) mIU/L - EKG Data -: EKG Interpreted by Or EKG shows normal: sinus rhythm, axis (Normal), intervals (Normal), QRS complexes (Normal), ST-T waves (Normal) Rate: normal (Rate 60 bpm) Past Medical History Past Medical History: GERD/Reflux, Hyperlipidemia, Hypertension, Seizure Disorder, Thyroid Disorder Additional Past Medical History / Comment(s): hx. colon polyps, >40 yrs. had se izures History of Any Multi-Drug Resistant Organisms: None Reported Past Surgical History: Cholecystectomy, Orthopedic Surgery Additional Past Surgical History / Comment(s): colonoscopy, hand surg. Past Anesthesia/Blood Transfusion Reactions: No Reported Reaction Past Psychological History: Anxiety, Depression Smoking Status: Never smoker Past Alcohol Use History: None Reported Past Drug Use History: None Reported - Past Family History Mother Family Medical History: Cancer Father History Unknown: Yes Sister(s) Family Medical History: Cancer Brother(s) History Unknown: Yes Son(s) Family Medical History: No Reported History Daughter(s) Additional Family Medical History / Comment(s): went without oxygen at Course Vital Signs 02/06/21 02/06/21 02/06/21 00:10 00:25 00:40 Temperature 97.3 F L Pulse Rate 73 70 69 Respiratory 18 18 18 Rate Blood Pressure 193/77 182/73 169/68 O2 Sat by Pulse 98 99 98 Oximetry 02/06/21 02/06/21 02/06/21 00:55 01:10 01:25 Temperature Pulse Rate 72 73 56 L Respiratory 18 18 18 Rate Blood Pressure 165/67 171/73 156/64 O2 Sat by Pulse 98 100 99 Oximetry 02/06/21 01:40 Temperature Pulse Rate 60 Respiratory 18 Rate Blood Pressure 154/66 O2 Sat by Pulse 99 Oximetry - Reevaluation(s) Reevaluation #1: 02/06/21 01:18 Case is discussed with Dr. Tracey. requests patient given aspirin, admission with neurology consultation. Critical Care Time Critical Care Time: Yes (30 minutes) Disposition Clinical Impression: TIA (transient ischemic attack) Disposition: ADMITTED IP TO THIS HOSP Condition: Good Is patient prescribed a controlled substance at d/c from ED?: No
--- NOTE | 2021-02-06 00:43 | CT ---
EXAMINATION TYPE: CT brain wo con for TPA DATE OF EXAM: 02/06/2021 COMPARISON: None HISTORY: R/O Stroke CT DLP: 1065 mGycm Automated exposure control for dose reduction was used. Ventricles have fairly normal size. There is no mass effect nor midline shift. There is no sign of in tracranial hemorrhage. Calvarium is intact. There is normal aeration of the mastoid sinuses. IMPRESSION: Negative unenhanced head CT scan.
[2021-02-06 00:54] LABS: Albumin 4.4 g/dL (3.5-5.0); Calcium 9.3 mg/dL (8.4-10.2); Partial Thromboplastin Time 22.3 sec (22.0-30.0); Prothrombin Time 10.7 sec (9.0-12.0); Total Bilirubin 0.4 mg/dL (0.2-1.3); Total Protein 7.3 g/dL (6.3-8.2)
--- NOTE | 2021-02-06 00:54 | CT ---
EXAMINATION TYPE: CT angio head neck DATE OF EXAM: 02/06/2021 COMPARISON: None HISTORY: R/O Stroke CT DLP: 362.10 mGycm Automated exposure control for dose reduction was used. CONTRAST: Performed with IV Contrast, patient injected with 65 mL of Isovue 370. Images obtained from the aortic arch to the vertex of the brain with IV contrast. There are 3-D post processed images. There is normal branching pattern of the great vessels on the aortic arch. There is normal contrast o pacification of the carotid arteries and vertebral arteries. There is arterial flow in the common int ernal and external carotid arteries bilaterally. There is very minimal plaque formation at the right carotid artery bifurcation and less than 15% stenosis. There is wide patency of the left carotid meri ry bifurcation. There is arterial flow in both vertebral arteries. There is no evidence of carotid or vertebral artery aneurysm or dissection. There is arterial flow in the vertebrobasilar artery system . There is arterial flow in the anterior middle and posterior cerebral arteries. There is no mass effec t. There is no evidence of intracranial arterial stenosis. There is no aneurysm or neovascularity. Th ere is normal enhancement of the venous sinuses. IMPRESSION: Negative CT angiogram of the brain. Minimal plaque at the right carotid artery bifurcation. No evidence of hemodynamic stenosis.
[2021-02-06] MEDS ORDERED: ACETAMINOPHEN TAB 325 MG TAB PO PRN (01:45)
[2021-02-06] MEDS: SODIUM CHLORIDE 0.9% 1,000 ML IV SCH ×2 (02:48→20:51)
[2021-02-06] MEDS: LEVOTHYROXINE 75 MCG TAB PO SCH (06:04)
[2021-02-06] MEDS: lisinopriL 20 MG TAB PO SCH (08:41)
[2021-02-06] MEDS: FAMOTIDINE 20 MG TAB PO SCH ×2 (08:41→20:48)
[2021-02-06] MEDS: CLOPIDOGREL 75 MG TAB PO SCH (08:41)
[2021-02-06] MEDS: ARTIFICIAL TEARS-HYPROMELLOSE DROPS 15 ML BTL BOTH EYES SCH ×2 (08:42→20:48)
[2021-02-06] MEDS: CALCIUM CARBONATE 500 MG CHEWABLE PO SCH ×2 (08:42→20:48)
[2021-02-06] MEDS: amLODIPine 10 MG TAB PO SCH (08:42)
--- NOTE | 2021-02-06 11:41 | P.CRDCN ---
History of Present Illness Consult date: 02/06/21 History of present illness: HISTORY OF PRESENT ILLNESS: This is a 75-year-old female with a past medical history significant for hypertension and hyperlipidemia. Patient used to follow in the office with Dr. Gastelum but states she has not been there in a couple years. We have been asked to see the patient in consultation for abnormal troponins. Patient examined at the bedside. Patient states yesterday around 11pm, she began having right arm and left weakness and tingling. She also reports mumbling. She states this lasted for a couple of hours and all her symptoms have since resolved. Denies chest pain or pressure. She denies shortness of breath. She denies any history of any irregular heart rhythms such as atrial fibrillation. She denies a previous history of TIA or CVA. Patient's blood pressure was elevated upon presentation to the hospital with a systolic of 193. Patient states her blood pressure is usually well controlled when she checks it at home. She reports she has been compliant with her medications. The patient has been started on Plavix per the ER physician. Patient has an ALLERGY listed to aspirin. When asking the patient what her ALLERGY is to aspirin, she is is unable to tell me what the ALLERGY is but states she was told by a physician in the past that she has never to take aspirin again EKG reveals sinus mechanism with PACs with no signs of acute ischemia Chest xray mild cardiomegaly. No acute lung disease. Heart appears slightly increased compared to old exam. CT brain: Negative for acute process CT angios head and neck: Negative CT angiogram of the brain. Minimal plaque at the right carotid artery bifurcation. No evidence of hemodynamic stenosis. Laboratory data: WBC 6.9. Hemoglobin 13.7. Platelet count 171. Sodium 132. Potassium 4.0. BUN 19. Creatinine 0.76. Troponin 0.012. 0.029. 0.047. Current home cardiac medications include amlodipine 10 mg daily, simvastatin 20 mg daily, Benzapril 20 mg daily Most recent echocardiogram obtained in November 2017 revealing ejection fraction 55- 60%. Mild mitral regurgitation. Mild tricuspid regurgitation. Patient underwent Lexiscan stress test in November 2017 revealing mild dyskinesia of the cardiac apex with no definite stress-induced ischemia. Normal ejection fraction. REVIEW OF SYSTEMS: At the time of my exam: CONSTITUTIONAL: Denies fever or chills. HEENT: Denies blurred vision, vision changes, or eye pain. Denies hemoptysis CARDIOVASCULAR: Denies chest pain. Denies orthopnea. Denies PND. Denies palpitations RESPIRATORY: Denies shortness of breath. GASTROINTESTINAL: Denies abdominal pain. Denies nausea or vomiting. HEMATOLOGIC: Denies bleeding disorders. GENITOURINARY: Denies any blood in urine. SKIN: Denies pruitis. Denies rash. PHYSICAL EXAM: VITAL SIGNS: Reviewed. GENERAL: Well-developed in no acute distress. HEENT: Head is normocephalic. Pupils are equal, round. Sclerae anicteric. Mucous membranes of the mouth are moist. Neck supple. No JVD or thyromegaly LUNGS: Respirations even and unlabored. Lungs essentially clear to auscultation bilaterally. HEART: Regular rate and rhythm. S1 and S2 heard. ABDOMEN: Soft. Nondistended. Nontender. EXTREMITIES: Normal range of motion. No clubbing or cyanosis. Peripheral pulses intact. No lower extremity edema NEUROLOGIC: Awake and alert. Oriented x 3. ASSESSMENT: Right-sided weakness, possible TIA Abnormal troponin, not suggestive of acute coronary syndrome, may be secondary to TIA Hypertension, uncontrolled on admission Hyperlipidemia PLAN: Resume home cardiac medications Monitor blood pressure Patient has ALLERGY to aspirin. She has been placed on Plavix 75 mg daily Continue lipitor. Check lipid panel. Neurology has been consulted. Await evaluation Obtain 2-D echo to assess cardiac structure and function Continue telemetry monitoring to assess for any cardiac arrhythmias Further recommendations pending patient's course Nurse practitioner note has been reviewed by physician. Signing provider agrees with the documented findings, assessment, and plan of care. Past Medical History Past Medical History: GERD/Reflux, Hyperlipidemia, Hypertension, Seizure Disorder, Thyroid Disorder Additional Past Medical History / Comment(s): hx. colon polyps, 50yrs. had seizures, diverticulitis, gastritis History of Any Multi-Drug Resistant Organisms: None Reported Past Surgical History: Cholecystectomy, Orthopedic Surgery Additional Past Surgical History / Comment(s): colonoscopy, hand surg. Past Anesthesia/Blood Transfusion Reactions: No Reported Reaction Past Psychological History: Anxiety, Depression Smoking Status: Never smoker Past Alcohol Use History: None Reported Past Drug Use History: None Reported - Past Family History Mother Family Medical History: Cancer Father History Unknown: Yes Sister(s) Family Medical History: Cancer Brother(s) History Unknown: Yes Son(s) Family Medical History: No Reported History Daughter(s) Additional Family Medical History / Comment(s): went without oxygen at Medications and Allergies Home Medications Medication Instructions Recorded Confirmed Type Benazepril HCl 20 mg PO DAILY 02/24/14 02/06/21 History Cholecalciferol [Vitamin D3 (25 50 mcg PO BID 02/24/14 02/06/21 History Mcg = 1000 Iu)] Levothyroxine Sodium [Synthroid] 75 mcg PO DAILY 02/24/14 02/06/21 History Simvastatin [Zocor] 20 mg PO HS 02/24/14 02/06/21 History Famotidine [Pepcid] 20 mg PO BID #40 tablet 06/11/14 02/06/21 Rx Calcium Carbonate [Calcium] 600 mg PO BID 05/01/17 02/06/21 History Carboxymethylcellulose Sodium 1 drop BOTH EYES BID 06/06/18 02/06/21 History [Refresh Tears] amLODIPine [Norvasc] 10 mg PO DAILY 07/30/18 02/06/21 History PHENobarbital 60 mg PO HS 12/04/20 02/06/21 History Allergies Allergy/AdvReac Type Severity Reaction Status Date / Time aspirin Allergy Unknown Verified 02/06/21 08:16 fexofenadine HCl Allergy Nausea & Verified 02/06/21 08:16 [From Little] Vomiting & Diarrhea Hydantoins Allergy Unknown Verified 02/06/21 08:16 nitrofurantoin Allergy Rash/Hives Verified 02/06/21 08:16 [From Macrobid] phenytoin sodium Allergy Rash/Hives Verified 02/06/21 08:16 [From Dilantin] sulfamethoxazole Allergy Rash/Hives Verified 02/06/21 08:16 [From Bactrim] tetracycline Allergy Unknown Verified 02/06/21 08:16 trimethoprim Allergy Rash/Hives Verified 02/06/21 08:16 acetaminophen AdvReac Diarrhea Verified 02/06/21 08:16 [From Coricidin] amoxicillin [Amoxicillin] AdvReac Nausea & Verified 02/06/21 08:16 Vomiting & Diarrhea chlorpheniramine maleate AdvReac Diarrhea Verified 02/06/21 08:16 [From Coricidin] codeine AdvReac DIZZINESS Verified 02/06/21 08:16 levofloxacin [From Levaquin] AdvReac Diarrhea Verified 02/06/21 08:16 phenylpropanolamine HCl AdvReac Diarrhea Verified 02/06/21 08:16 [From Coricidin] prednisone AdvReac Nausea & Verified 02/06/21 08:16 Vomiting & Diarrhea propoxyphene HCl AdvReac DIZZINESS Verified 02/06/21 08:16 [From Darvon] narcotic Allergy LETHARGIC/H Uncoded 12/04/20 12:06 EADACHES Physical Exam Vitals: Vital Signs Temp Pulse Pulse Resp BP BP Pulse Ox 02/06/21 08:39 97.9 F 59 L 16 183/76 99 02/06/21 08:00 59 L 16 02/06/21 07:46 98 02/06/21 04:00 97.9 F 56 L 16 174/72 98 02/06/21 02:19 97.5 F L 66 16 182/78 99 02/06/21 01:40 60 18 154/66 99 02/06/21 01:25 56 L 18 156/64 99 02/06/21 01:10 73 18 171/73 100 02/06/21 00:55 72 18 165/67 98 02/06/21 00:40 69 18 169/68 98 02/06/21 00:25 70 18 182/73 99 02/06/21 00:10 97.3 F L 73 18 193/77 98 Intake and Output 02/05/21 02/06/21 02/06/21 22:59 06:59 14:59 Intake Total 120 Balance 120 Intake: Oral 120 Other: # Voids 1 Weight 66.678 kg Results 02/06/21 00:18 02/06/21 00:18 Cardiac Enzymes 02/06/21 02/06/21 02/06/21 Range/Units 00:18 00:18 03:34 AST 40 H (14-36) U/L Troponin I <0.012 0.029 (0.000-0.034) ng/mL 02/06/21 Range/Units 07:22 AST (14-36) U/L Troponin I 0.047 H* (0.000-0.034) ng/mL Coagulation 02/06/21 Range/Units 00:18 PT 10.7 (9.0-12.0) sec APTT 22.3 (22.0-30.0) sec CBC 02/06/21 Range/Units 00:18 WBC 6.9 (3.8-10.6) k/uL RBC 4.18 (3.80-5.40) m/uL Hgb 13.7 (11.4-16.0) gm/dL Hct 40.5 (34.0-46.0) % Plt Count 171 (150-450) k/uL Comprehensive Metabolic Panel 02/06/21 Range/Units 00:18 Sodium 132 L (137-145) mmol/L Potassium 4.0 (3.5-5.1) mmol/L Chloride 99 (98-107) mmol/L Carbon Dioxide 22 (22-30) mmol/L BUN 19 H (7-17) mg/dL Creatinine 0.76 (0.52-1.04) mg/dL Glucose 117 H (74-99) mg/dL Calcium 9.3 (8.4-10.2) mg/dL AST 40 H (14-36) U/L ALT 20 (4-34) U/L Alkaline Phosphatase 115 (38-126) U/L Total Protein 7.3 (6.3-8.2) g/dL Albumin 4.4 (3.5-5.0) g/dL Current Medications Generic Name Dose Route Start Last Admin Trade Name Freq PRN Reason Stop Dose Admin Acetaminophen 650 mg 02/06/21 01:45 Acetaminophen Tab 325 Mg Tab PO Q6HR PRN Pain Amlodipine Besylate 10 mg 02/06/21 09:00 02/06/21 08:42 Amlodipine 10 Mg Tab PO 10 mg DAILY YONNY Administration Artificial Tears 1 drops 02/06/21 09:00 02/06/21 08:42 Artificial Tears-Hypromellose Drops 15 Ml Btl BOTH EYES 1 drops BID YONNY Administration Atorvastatin Calcium 80 mg 02/06/21 21:00 Atorvastatin 80 Mg Tab PO HS YONNY Calcium Carbonate/Glycine 500 mg 02/06/21 09:00 02/06/21 08:42 Calcium Carbonate 500 Mg Chewable PO 500 mg BID YONNY Administration Clopidogrel Bisulfate 75 mg 02/06/21 09:00 02/06/21 08:41 Clopidogrel 75 Mg Tab PO 75 mg DAILY YONNY Administration Famotidine 20 mg 02/06/21 09:00 02/06/21 08:41 Famotidine 20 Mg Tab PO 20 mg BID YONNY Administration Sodium Chloride 1,000 mls @ 20 mls/hr 02/06/21 01:45 02/06/21 02:48 Saline 0.9% IV Not Given .Q24H YONNY Levothyroxine Sodium 75 mcg 02/06/21 06:30 02/06/21 06:04 Levothyroxine 75 Mcg Tab PO 75 mcg DAILY@0630 YONNY Administration Lisinopril 20 mg 02/06/21 09:00 02/06/21 08:41 Lisinopril 20 Mg Tab PO 20 mg DAILY YONNY Administration Phenobarbital 64.8 mg 02/06/21 21:00 Phenobarbital 64.8 Mg Tab PO HS YONNY Intake and Output 02/05/21 02/06/21 02/06/21 22:59 06:59 14:59 Intake Total 120 Balance 120 Intake: Oral 120 Other: # Voids 1 Weight 66.678 kg 02/06/21 00:18 02/06/21 00:18
[2021-02-06] MEDS ORDERED: ASPIRIN 81 MG PO SCH (12:45)
[2021-02-06 14:09] VITALS: BMI 26.0
--- NOTE | 2021-02-06 17:50 | P.HPIM ---
History of Present Illness H&P Date: 02/06/21 Chief Complaint: Right-sided weakness Patient is a 75-year-old male with a known history of hypertension, hyperlipidemia, seizure disorder, hypothyroidism, GERD, anxiety/depression presents to ER with complaints of right arm and leg weakness and tingling sensation.Patient says that at around 10:45 PM, she got up and tried to go to the bathroom her right leg went to sleep and could not move and later could not move right arm. Her speech was mumbled and slurred. EMS was called and patient was brought to the hospital. Symptoms gradually getting better after coming to ER. Patient says that she felt dizzy about 2 weeks ago. No other complaints of chest pain or shortness of breath. No fever no chills. Denied any history of irregular heart beat. No nausea vomiting or abdominal pain or diarrhea. On admission blood pressure 182/78 pulse is 6660 temporary benefit pulse ox 99% on room air Chest x-ray showed mild cardiomegaly. No acute lung bases. Heart appears s lightly increased compared to old exam. Next and CT head showednegative intracranial process. CT angiogram of the head and neck showed minimal plague in the right carotid artery bifurcation. No evidence of hemodynamically significant stenosis. EKG showed sinus rhythm with premature atrial complexes. Laboratory data showed sodium 132 potassium 4.0 BUN 19 and creatinine 0.76 Troponin 0.012, 0.0-9 and 0.047 Review of Systems Constitutional: Patient denies any fever or chills . No generalized weakness or weight loss. Abdomen: Patient denied nausea vomiting and diarrhea and abdominal pain. Cardiovascular: Patient denies any chest pain or short of breath no palpitations. Respiratory: patient denied any cough is from production. No shortness of breath Neurologic: Patient denied any numbness or tingling headache. Right-sided weakness Musculoskeletal: Patient denies any complaints of joint swelling or deformity. Skin: Negative Psychiatric: Negative Endocrine: No heat or cold intolerance. No recent weight gain. Genitourinary: No dysuria or hematuria. All other 14 point ROS negative except the above Past Medical History Past Medical History: GERD/Reflux, Hyperlipidemia, Hypertension, Seizure Disorder, Thyroid Disorder Additional Past Medical History / Comment(s): hx. colon polyps, 50yrs. had seizures, diverticulitis, gastritis History of Any Multi-Drug Resistant Organisms: None Reported Past Surgical History: Cholecystectomy, Orthopedic Surgery Additional Past Surgical History / Comment(s): colonoscopy, hand surg. Past Anesthesia/Blood Transfusion Reactions: No Reported Reaction Past Psychological History: Anxiety, Depression Smoking Status: Never smoker Past Alcohol Use History: None Reported Past Drug Use History: None Reported - Past Family History Mother Family Medical History: Cancer Father History Unknown: Yes Sister(s) Family Medical History: Cancer Brother(s) History Unknown: Yes Son(s) Family Medical History: No Reported History Daughter(s) Additional Family Medical History / Comment(s): went without oxygen at Medications and Allergies Home Medications Medication Instructions Recorded Confirmed Type Benazepril HCl 20 mg PO DAILY 02/24/14 02/06/21 History Cholecalciferol [Vitamin D3 (25 50 mcg PO BID 02/24/14 02/06/21 History Mcg = 1000 Iu)] Levothyroxine Sodium [Synthroid] 75 mcg PO DAILY 02/24/14 02/06/21 History Simvastatin [Zocor] 20 mg PO HS 02/24/14 02/06/21 History Famotidine [Pepcid] 20 mg PO BID #40 tablet 06/11/14 02/06/21 Rx Calcium Carbonate [Calcium] 600 mg PO BID 05/01/17 02/06/21 History Carboxymethylcellulose Sodium 1 drop BOTH EYES BID 06/06/18 02/06/21 History [Refresh Tears] amLODIPine [Norvasc] 10 mg PO DAILY 07/30/18 02/06/21 History PHENobarbital 60 mg PO HS 12/04/20 02/06/21 History Allergies Allergy/AdvReac Type Severity Reaction Status Date / Time aspirin Allergy Unknown Verified 02/06/21 08:16 fexofenadine HCl Allergy Nausea & Verified 02/06/21 08:16 [From Little] Vomiting & Diarrhea Hydantoins Allergy Unknown Verified 02/06/21 08:16 nitrofurantoin Allergy Rash/Hives Verified 02/06/21 08:16 [From Macrobid] phenytoin sodium Allergy Rash/Hives Verified 02/06/21 08:16 [From Dilantin] sulfamethoxazole Allergy Rash/Hives Verified 02/06/21 08:16 [From Bactrim] tetracycline Allergy Unknown Verified 02/06/21 08:16 trimethoprim Allergy Rash/Hives Verified 02/06/21 08:16 acetaminophen AdvReac Diarrhea Verified 02/06/21 08:16 [From Coricidin] amoxicillin [Amoxicillin] AdvReac Nausea & Verified 02/06/21 08:16 Vomiting & Diarrhea chlorpheniramine maleate AdvReac Diarrhea Verified 02/06/21 08:16 [From Coricidin] codeine AdvReac DIZZINESS Verified 02/06/21 08:16 levofloxacin [From Levaquin] AdvReac Diarrhea Verified 02/06/21 08:16 phenylpropanolamine HCl AdvReac Diarrhea Verified 02/06/21 08:16 [From Coricidin] prednisone AdvReac Nausea & Verified 02/06/21 08:16 Vomiting & Diarrhea propoxyphene HCl AdvReac DIZZINESS Verified 02/06/21 08:16 [From Darvon] narcotic Allergy LETHARGIC/H Uncoded 12/04/20 12:06 EADACHES Physical Exam Vitals: Vital Signs Temp Pulse Pulse Resp BP BP Pulse Ox 02/06/21 08:39 97.9 F 59 L 16 183/76 99 02/06/21 08:00 59 L 16 02/06/21 07:46 98 02/06/21 04:00 97.9 F 56 L 16 174/72 98 02/06/21 02:19 97.5 F L 66 16 182/78 99 02/06/21 01:40 60 18 154/66 99 02/06/21 01:25 56 L 18 156/64 99 02/06/21 01:10 73 18 171/73 100 02/06/21 00:55 72 18 165/67 98 02/06/21 00:40 69 18 169/68 98 02/06/21 00:25 70 18 182/73 99 02/06/21 00:10 97.3 F L 73 18 193/77 98 Intake and Output 02/05/21 02/06/21 02/06/21 22:59 06:59 14:59 Other: # Voids 1 Weight 66.678 kg PHYSICAL EXAMINATION: Patient is lying in the bed comfortably, no acute distress, awake alert and oriented.. HEENT: Normocephalic. Neck is supple. Pupils reactive. Nostrils clear. Oral cavity is moist. Neck reveals no JVD, carotid bruits, or thyromegaly. CHEST EXAMINATION: Trachea is central. Symmetrical expansion. Lung roberto clear to auscultation and percussion. CARDIAC: Normal S1, S2 with no gallops. No murmurs ABDOMEN: Soft. Bowel sounds normal. No organomegaly. No abdominal bruits. Extremities: reveal no edema. No clubbing or cyanosis Neurologically awake, alert, oriented x3 with well-coordinated movements. No focal deficits noted Skin: No rash or skin lesions. Psychiatric: Coperative. Nonsuicidal Musculoskeletal: No joint swelling or deformity. Normal range of motion. Results CBC & Chem 7: 02/06/21 00:18 02/06/21 00:18 Labs: Abnormal Lab Results - Last 24 Hours (Table) 02/06/21 02/06/21 Range/Units 00:18 07:22 Sodium 132 L (137-145) mmol/L BUN 19 H (7-17) mg/dL Glucose 117 H (74-99) mg/dL AST 40 H (14-36) U/L Troponin I 0.047 H* (0.000-0.034) ng/mL Thrombosis Risk Factor Assmnt - DVT/VTE Prophylaxis DVT/VTE Prophylaxis: Pharmacologic Prophylaxis ordered - Choose All That Apply Any of the Below Risk Factors Present?: No Other Risk Factors: Yes Each Risk Factor Represents 3 Points: Age 75 years or older Each Risk Factor Represents 5 Points: Stroke (< 1 month) Thrombosis Risk Factor Assessment Total Risk Factor Score: 8 Thrombosis Risk Factor Assessment Level: High Risk Assessment and Plan Assessment: Right-sided weakness likely due to TIA Mildly elevated troponin level. Rule out ACS Uncontrolled hypertension Hyperlipidemia Seizure disorder Hypothyroidism GERD Activities as depression DVT prophylaxis with heparin subcu Plan: Patient be continued on telemetry monitoring. Continue with home blood pressure medications including amlodipine, lisinopril and titrate as needed. Patient is ALLERGIC to aspirin. Continue with Plavix. GI and DVT prophylaxis. Neurology was consulted. Continue with neuro checks every 4 and follow closely. Time with Patient: Greater than 30
[2021-02-06] MEDS ORDERED: ATORVASTATIN 80 MG TAB PO SCH (21:00)
[2021-02-07] MEDS: LEVOTHYROXINE 75 MCG TAB PO SCH (05:24)
--- NOTE | 2021-02-07 08:11 | P.CNNES ---
History of Present Illness Consult date: 02/06/21 Requesting physician: Vini Humphries Reason for Consult: TIA History of Present Illness: This is a Tele-Neurology consultation performed today on 02/06/2021. Patient is a 75-year-old female came to the hospital shortly after midnight this morning by ambulance. As per EMS flow sheet, they were called for strokelike symptoms that started at 11:30 PM. Patient has mentioned that she was going to the bathroom when she developed numbness to her right side. When she tried to stand up, she was unable to move her right leg and right arm. Patient is currently feeling dizzy. Patient denies any history of stroke. Patient denies any recent trauma or falls. She is not on any blood thinners or aspirin. She denied chest pain, difficulty breathing, shortness of breath, headache, blurred vision, tinnitus, jaw pain, neck pain, back pain, abdominal pain, extremity pain, cough, fever or pain anywhere else. Patient was alert and oriented 4 with GCS of 14. Patient was noted to have right-sided weakness/drift and slur red speech. No obvious facial droop. Patient's vitals at the scene was blood pressure 193/76, pulse is 69, saturation 98%, blood glucose 119. Repeat blood pressure was 197/74. Patient states that her above symptoms started with developing numbness of the right foot. While walking she felt as she did not have any leg, and would fall. Subsequently developed whole right-sided weakness as mentioned above in EMS flow sheet. Patient states that she tried to talk and couldn't pronounce words like has picked up "a foreign language". Patient states that overall her symptoms lasted for 2-3 hours and then completely resolved. At present she has no symptoms. She denies any history of strokes or TIA. Her blood pressure on arrival was 193/77. Patient's computed tomography scan of the head was normal. CTA of head and neck shows negative CTA of the brain. Minimal plaque at the right carotid artery bifurcation. No evidence of hemodynamic stenosis. EKG shows sinus rhythm with premature atrial complexes. Apparently stroke code was activated. Case was discussed with Dr. Tracey, and patient was not a candidate for TPA. Aspirin was recommended. Patient has history of hypertension for 30 years. Denies diabetes. She does have hyperlipidemia. She never smoked tobacco, does not drink alcohol. Does not use any hormone replacement therapy. She currently lives in [facility] which is a senior housing facility. She has 2 sons and 1 daughter. Patient's home medication includes Zocor 20 mg, levothyroxine, vitamin D, benazepril 20 mg, Pepcid, amlodipine, phenobarbital 60 mg at that time. Patient does not take any antiplatelet medication or aspirin at home. Denies family history of strokes, although her father of [place] at age 47. Patient has history of seizure disorder that was diagnosed about 50 years ago (after her son was born). She was started on phenobarbital, which has controlled seizures very well. She follows up with Dr. Fuentes. Review of Systems As mentioned above in detail. All review of systems otherwise completely unremarkable. Denies chest pain, shortness of breath, wheezing or cough. Denies abdominal pain nausea vomiting diarrhea. Past Medical History Past Medical History: GERD/Reflux, Hyperlipidemia, Hypertension, Seizure Disorder, Thyroid Disorder Additional Past Medical History / Comment(s): hx. colon polyps, 50yrs. had seizures, diverticulitis, gastritis History of Any Multi-Drug Resistant Organisms: None Reported Past Surgical History: Cholecystectomy, Orthopedic Surgery Additional Past Surgical History / Comment(s): colonoscopy, hand surg. Past Anesthesia/Blood Transfusion Reactions: No Reported Reaction Past Psychological History: Anxiety, Depression Smoking Status: Never smoker Past Alcohol Use History: None Reported Past Drug Use History: None Reported - Past Family History Mother Family Medical History: Cancer Father History Unknown: Yes Sister(s) Family Medical History: Cancer Brother(s) History Unknown: Yes Son(s) Family Medical History: No Reported History Daughter(s) Additional Family Medical History / Comment(s): went without oxygen at Medications and Allergies Home Medications Medication Instructions Recorded Confirmed Type Benazepril HCl 20 mg PO DAILY 02/24/14 02/06/21 History Cholecalciferol [Vitamin D3 (25 50 mcg PO BID 02/24/14 02/06/21 History Mcg = 1000 Iu)] Levothyroxine Sodium [Synthroid] 75 mcg PO DAILY 02/24/14 02/06/21 History Simvastatin [Zocor] 20 mg PO HS 02/24/14 02/06/21 History Famotidine [Pepcid] 20 mg PO BID #40 tablet 06/11/14 02/06/21 Rx Calcium Carbonate [Calcium] 600 mg PO BID 05/01/17 02/06/21 History Carboxymethylcellulose Sodium 1 drop BOTH EYES BID 06/06/18 02/06/21 History [Refresh Tears] amLODIPine [Norvasc] 10 mg PO DAILY 07/30/18 02/06/21 History PHENobarbital 60 mg PO HS 12/04/20 02/06/21 History Allergies Allergy/AdvReac Type Severity Reaction Status Date / Time aspirin Allergy Unknown Verified 02/06/21 08:16 fexofenadine HCl Allergy Nausea & Verified 02/06/21 08:16 [From Little] Vomiting & Diarrhea Hydantoins Allergy Unknown Verified 02/06/21 08:16 nitrofurantoin Allergy Rash/Hives Verified 02/06/21 08:16 [From Macrobid] phenytoin sodium Allergy Rash/Hives Verified 02/06/21 08:16 [From Dilantin] sulfamethoxazole Allergy Rash/Hives Verified 02/06/21 08:16 [From Bactrim] tetracycline Allergy Unknown Verified 02/06/21 08:16 trimethoprim Allergy Rash/Hives Verified 02/06/21 08:16 acetaminophen AdvReac Diarrhea Verified 02/06/21 08:16 [From Coricidin] amoxicillin [Amoxicillin] AdvReac Nausea & Verified 02/06/21 08:16 Vomiting & Diarrhea chlorpheniramine maleate AdvReac Diarrhea Verified 02/06/21 08:16 [From Coricidin] codeine AdvReac DIZZINESS Verified 02/06/21 08:16 levofloxacin [From Levaquin] AdvReac Diarrhea Verified 02/06/21 08:16 phenylpropanolamine HCl AdvReac Diarrhea Verified 02/06/21 08:16 [From Coricidin] prednisone AdvReac Nausea & Verified 02/06/21 08:16 Vomiting & Diarrhea propoxyphene HCl AdvReac DIZZINESS Verified 02/06/21 08:16 [From Darvon] narcotic Allergy LETHARGIC/H Uncoded 12/04/20 12:06 EADACHES Physical Examination - Vital Signs Vital Signs: Vital Signs Temp Pulse Pulse Resp BP BP Pulse Ox 02/06/21 08:39 97.9 F 59 L 16 183/76 99 02/06/21 08:00 59 L 16 02/06/21 07:46 98 02/06/21 04:00 97.9 F 56 L 16 174/72 98 02/06/21 02:19 97.5 F L 66 16 182/78 99 02/06/21 01:40 60 18 154/66 99 02/06/21 01:25 56 L 18 156/64 99 02/06/21 01:10 73 18 171/73 100 02/06/21 00:55 72 18 165/67 98 02/06/21 00:40 69 18 169/68 98 02/06/21 00:25 70 18 182/73 99 02/06/21 00:10 97.3 F L 73 18 193/77 98 Intake and Output 02/05/21 02/06/21 02/06/21 22:59 06:59 14:59 Intake Total 120 Balance 120 Intake: Oral 120 Other: # Voids 1 Weight 66.678 kg Patient is an elderly female, in no acute distress. Patient is alert awake oriented to time place and person. Speech and language functions are normal. Patient can name and repeat very well. Her comprehension is intact. No aphasia or dysarthria. Attention, concentration and fund of knowledge is adequate. On cranial examination, pupils are round and reacting to light, visual roberto are full on confrontation, extraocular muscles are intact with no nystagmus. Face is symmetric, tongue protrudes to the midline. Palatal elevation and sensation normal, hearing and shoulder shrug normal, facial sensation normal. Shoulder shrug normal. On muscle strength testing, there is no pronator drift and the strength is normal in arms and legs distally and proximally. Deep tendon reflexes are 2+ in the upper extremities, 2+ to 3 at the knees, 1+ ankles and plantars downgoing bilaterally. Sensory to touch is equal with no neglect. Cerebellar function showed no ataxia for [id number] testing. No dysdiadochokinesia. Tone and bulk of muscles normal. Gait normal. On general examination, there is no carotid bruit or murmur, S1-S2 audible. Abdomen is soft nontender. Chest is clear. Peripheral pulses are present. Patient has mild peripheral edema. Results - Laboratory Findings CBC and BMP: 02/06/21 00:18 02/06/21 00:18 Abnormal Lab Findings: Abnormal Labs 02/06/21 02/06/21 00:18 07:22 Sodium 132 L BUN 19 H Glucose 117 H AST 40 H Troponin I 0.047 H* Assessment and Plan Assessment: * Probable TIA manifesting with slurred speech and right hemiparesis, which resolved in 2-3 hours. Her current NIH stroke scale is 0. Patient was not a candidate for TPA. * Hypertension * Hyperlipidemia * History of seizure disorder, well controlled on phenobarbital. Plan: * Patient will undergo TIA workup. * Patient had undergone CTA of head and neck, which is normal. Minimal plaque at the right carotid artery bifurcation. No evidence of hemodynamic stenosis. * Check hemoglobin A1c, fasting lipid panel. * 2-D echo to rule out any embolic source. * Telemetry monitoring to rule out arrhythmia. * Treat blood pressure cautiously. * Patient states that she is very ALLERGIC to aspirin due to her history of gastritis and diverticulitis. She was told not to take aspirin. Patient has been started on Plavix 75 mg daily which will be continued. * We will follow.
[2021-02-07] MEDS: CLOPIDOGREL 75 MG TAB PO SCH (09:23)
[2021-02-07] MEDS: ARTIFICIAL TEARS-HYPROMELLOSE DROPS 15 ML BTL BOTH EYES SCH ×3 (09:23→21:54)
[2021-02-07] MEDS: FAMOTIDINE 20 MG TAB PO SCH ×2 (09:23→21:52)
[2021-02-07] MEDS: CALCIUM CARBONATE 500 MG CHEWABLE PO SCH ×3 (09:23→21:52)
[2021-02-07] MEDS: lisinopriL 20 MG TAB PO SCH (09:23)
[2021-02-07] MEDS: amLODIPine 10 MG TAB PO SCH ×2 (09:27→09:37)
[2021-02-07 09:31] LABS: Chol/HDL Ratio 2.91; LDL Cholesterol,Calculated 92.4 mg/dL (0.0-131.0); VLDL Calculation 16.6 mg/dL (5.00-40.00)
--- NOTE | 2021-02-07 10:01 | ECHOF ---
Referral Reason:Elevated Troponin MEASUREMENTS -------- HEIGHT: 160.0 cm WEIGHT: 66.7 kg BP: 183/76 RVIDd: 2.6 cm (< 3.3) IVSd: 1.1 cm (0.6 - 1.1) LVIDd: 4.3 cm (3.9 - 5.3) LVPWd: 0.9 cm (0.6 - 1.1) IVSs: 1.6 cm LVIDs: 2.2 cm LVPWs: 1.8 cm LAESV Index (A-L): 38.45 ml/m Ao Diam: 2.2 cm (2.0 - 3.7) AV Cusp: 1.7 cm (1.5 - 2.6) LA Diam: 3.4 cm (2.7 - 3.8) MV EXCURSION: 15.892 mm (> 18.000) MV EF SLOPE: 72 mm/s (70 - 150) EPSS: 0.2 cm MV E Daniel: 1.20 m/s MV DecT: 238 ms MV A Daniel: 0.48 m/s MV E/A Ratio: 2.51 RAP: 5.00 mmHg RVSP: 37.32 mmHg FINDINGS -------- Sinus rhythm. This was a technically adequate study. The left ventricular size is normal. Left ventricular wall thickness is normal. Overall left vent ricular systolic function is normal with, an EF between 55 - 60 %. The diastolic filling pattern is normal for the age of the patient 13.17. The right ventricle is normal in size. LA is moderately dilated 34-39 ml/m2 The right atrial size is normal. Interatrial and interventricular septum intact. The aortic valve is trileaflet and appears structurally normal. There is no evidence of aortic regu rgitation. There is no evidence of aortic stenosis. Mild mitral regurgitation is present. Mild tricuspid regurgitation present. There is mild pulmonary hypertension. The right ventricular systolic pressure, as measured by Doppler, is 37.32mmHg. There is no pulmonic regurgitation present. The aortic root size is normal. IVC Not well visulized. There is no pericardial effusion. CONCLUSIONS -------- 1. The left ventricular size is normal. 2. Left ventricular wall thickness is normal. 3. Overall left ventricular systolic function is normal with, an EF between 55 - 60 %. 4. The diastolic filling pattern is normal for the age of the patient 13.17 5. LA is moderately dilated 34-39 ml/m2 6. Mild mitral regurgitation is present. 7. Mild tricuspid regurgitation present. 8. There is mild pulmonary hypertension. 9. The right ventricular systolic pressure, as measured by Doppler, is 37.32mmHg. GARDEN CONSULTANT: Christine Maynard RDCS
--- NOTE | 2021-02-07 11:01 | P.PN ---
Subjective Progress Note Date: 02/07/21 HISTORY OF PRESENT ILLNESS: This is a 75-year-old female with a past medical history significant for hypertension and hyperlipidemia. Patient used to follow in the office with Dr. Gastelum but states she has not been there in a couple years. We have been asked to see the patient in consultation for abnormal troponins. Patient examined at the bedside. Patient states yesterday around 11pm, she began having right arm and left weakness and tingling. She also reports mumbling. She states this lasted for a couple of hours and all her symptoms have since resolved. Denies chest pain or pressure. She denies shortness of breath. She denies any history of any irregular heart rhythms such as atrial fibrillation. She denies a previous history of TIA or CVA. Patient's blood pressure was elevated upon presentation to the hospital with a systolic of 193. Patient states her blood pressure is usually well controlled when she checks it at home. She reports she has been compliant with her medications. The patient has been started on Plavix per the ER physician. Patient has an ALLERGY listed to aspirin. When asking the patient what her ALLERGY is to aspirin, she is is unable to tell me what the ALLERGY is but states she was told by a physician in the past that she has never to take aspirin again EKG reveals sinus mechanism with PACs with no signs of acute ischemia Chest xray mild cardiomegaly. No acute lung disease. Heart appears slightly increased compared to old exam. CT brain: Negative for acute process CT angios head and neck: Negative CT angiogram of the brain. Minimal plaque at the right carotid artery bifurcation. No evidence of hemodynamic stenosis. Laboratory data: WBC 6.9. Hemoglobin 13.7. Platelet count 171. Sodium 132. Potassium 4.0. BUN 19. Creatinine 0.76. Troponin 0.012. 0.029. 0.047. Current home cardiac medications include amlodipine 10 mg daily, simvastatin 20 mg daily, Benzapril 20 mg daily Most recent echocardiogram obtained in November 2017 revealing ejection fraction 55- 60%. Mild mitral regurgitation. Mild tricuspid regurgitation. Patient underwent Lexiscan stress test in November 2017 revealing mild dyskinesia of the cardiac apex with no definite stress-induced ischemia. Normal ejection fraction. 02/07/2021 Patient examined this morning at the bedside. Patient denies chest pain or pressure. Patient denies shortness of breath. She denies any weakness of her extremities. Speech is clear. Echocardiogram completed revealed ejection fraction 55-60%. Mild mitral regurgitation. Mild tricuspid regurgitation. Mild pulmonary hypertension. Telemetry reveals sinus bradycardia. PHYSICAL EXAM: VITAL SIGNS: Reviewed. GENERAL: Well-developed in no acute distress. HEENT: Head is normocephalic. Pupils are equal, round. Sclerae anicteric. Mucous membranes of the mouth are moist. Neck supple. No JVD or thyromegaly LUNGS: Respirations even and unlabored. Lungs essentially clear to auscultation bilaterally. HEART: Regular rate and rhythm. S1 and S2 heard. ABDOMEN: Soft. Nondistended. Nontender. EXTREMITIES: Normal range of motion. No clubbing or cyanosis. Peripheral pul ses intact. No lower extremity edema NEUROLOGIC: Awake and alert. Oriented x 3. ASSESSMENT: Right-sided weakness, possible TIA Abnormal troponin, not suggestive of acute coronary syndrome, may be secondary to TIA Hypertension, uncontrolled on admission Hyperlipidemia PLAN: Continue current cardiac medications Neurology following. Continue Plavix and Lipitor. Patient is ALLERGIC to aspirin Patient is stable for discharge today from a cardiac standpoint Patient to follow-up outpatient with Dr. Morin Nurse practitioner note has been reviewed by physician. Signing provider agrees with the documented findings, assessment, and plan of care. Objective - Vital Signs Vital signs: Vital Signs Temp 98.4 F 02/07/21 08:00 Pulse 47 L 02/07/21 08:00 Resp 18 02/07/21 08:00 BP 118/56 02/07/21 08:00 Pulse Ox 100 02/07/21 08:00 Intake & Output 02/06/21 02/07/21 02/07/21 18:59 06:59 18:59 Intake Total 480 Balance 480 Weight 66.678 kg 66.6 kg Intake: Oral 480 Other: Voiding Method Toilet Toilet # Voids 3 1 - Labs CBC & Chem 7: 02/06/21 00:18 02/06/21 00:18
--- NOTE | 2021-02-07 14:44 | P.PN ---
Subjective Progress Note Date: 02/07/21 02/07/2021: This is a Tele-neurology follow up performed on the patient today on 02/07/2021. Patient is sitting comfortably in the recliner. Offers no complaints. Denies headache. Patient back to normal. Objective - Vital Signs Vital signs: Vital Signs Temp 98.4 F 02/07/21 08:00 Pulse 47 L 02/07/21 08:00 Resp 18 02/07/21 08:00 BP 118/56 02/07/21 08:00 Pulse Ox 100 02/07/21 08:00 Intake & Output 02/06/21 02/07/21 02/07/21 18:59 06:59 18:59 Intake Total 480 Balance 480 Weight 66.678 kg 66.6 kg Intake: Oral 480 Other: Voiding Method Toilet Toilet # Voids 3 1 - Exam Patient is an elderly female, very pleasant, in no distress. She is sitting in the recliner. Patient is alert awake oriented to time place and person. Speech and language functions are normal. Attention, concentration and fund of knowledge is adequat e. On cranial examination, pupils are round and reacting to light, visual roberto are full on confrontation, extraocular muscles are intact with no nystagmus. Face is symmetric, tongue protrudes to the midline. Palatal elevation and sensation normal, hearing and shoulder shrug normal, facial sensation normal. Shoulder shrug normal. On muscle strength testing, there is no pronator drift and the strength is normal in arms and legs distally and proximally. Deep tendon reflexes are normal and symmetric. Plantars downgoing. Sensory to touch is equal with no neglect. Cerebellar function showed no ataxia for lrarox-df-iopt testing. No dysdiadochokinesia. Tone and bulk of muscles normal. Gait normal. On general examination, there is no carotid bruit or murmur, S1-S2 audible. Abdomen is soft nontender. Chest is clear. Peripheral pulses are present. No edema. - Labs CBC & Chem 7: 02/06/21 00:18 02/06/21 00:18 Assessment and Plan Assessment: * Probable TIA manifesting with slurred speech and right hemiparesis, which resolved in 2-3 hours. Her current NIH stroke scale is 0. Patient was not a candidate for TPA. * Hypertension * Hyperlipidemia * History of seizure disorder, well controlled on phenobarbital. Plan: * 2-D echo revealed normal left-ventricular size. Left ventricular wall thickness is normal. EF is between 55-60%. Left atrium is moderately dilated. Mild MR. No embolic source. * CTA of head and neck, which is normal. Minimal plaque at the right carotid artery bifurcation. No evidence of hemodynamic stenosis. * Hemoglobin A1c 5.3, fasting lipid panel with cholesterol 166, LDL 92.4, HDL 57 and triglycerides 83.0. Continue Lipitor. We will decrease dose to 40 mg. * 2-D echo to rule out any embolic source. * Telemetry monitoring showing only sinus bradycardia. * Cardiology has seen the patient for borderline increase cardiac enzymes. Input appreciated. * Treat blood pressure to target < 130/80. * Patient states that she is very ALLERGIC to aspirin due to her history of gastritis and diverticulitis. She was told not to take aspirin. Patient has been started on Plavix 75 mg daily which will be continued. * Neurologically clear for discharge. Neurology will sign off. Please reconsult if any questions.
[2021-02-07] MEDS ORDERED: ATORVASTATIN 40 MG TAB PO SCH (21:00)
[2021-02-08] MEDS: SODIUM CHLORIDE 0.9% 1,000 ML IV SCH (03:53)
[2021-02-08 04:56] VITALS: RESP 16
[2021-02-08] MEDS: LEVOTHYROXINE 75 MCG TAB PO SCH (06:25)
[2021-02-08] MEDS: CALCIUM CARBONATE 500 MG CHEWABLE PO SCH (08:07)
[2021-02-08] MEDS: ARTIFICIAL TEARS-HYPROMELLOSE DROPS 15 ML BTL BOTH EYES SCH (08:07)
[2021-02-08] MEDS: CLOPIDOGREL 75 MG TAB PO SCH (08:08)
[2021-02-08] MEDS: amLODIPine 10 MG TAB PO SCH (08:08)
[2021-02-08] MEDS: lisinopriL 20 MG TAB PO SCH (08:08)
[2021-02-08] MEDS: FAMOTIDINE 20 MG TAB PO SCH (08:08)
[2021-02-08 11:33] VITALS: BP 131/64; PULSE 51; TEMP 98
--- NOTE | 2021-02-08 11:45 | P.PN ---
Subjective Progress Note Date: 02/08/21 HISTORY OF PRESENT ILLNESS: This is a 75-year-old female with a past medical history significant for hypertension and hyperlipidemia. Patient used to follow in the office with Dr. Gastelum but states she has not been there in a couple years. We have been asked to see the patient in consultation for abnormal troponins. Patient examined at the bedside. Patient states yesterday around 11pm, she began having right arm and left weakness and tingling. She also reports mumbling. She states this lasted for a couple of hours and all her symptoms have since resolved. Denies chest pain or pressure. She denies shortness of breath. She denies any history of any irregular heart rhythms such as atrial fibrillation. She denies a previous history of TIA or CVA. Patient's blood pressure was elevated upon presentation to the hospital with a systolic of 193. Patient states her blood pressure is usually well controlled when she checks it at home. She reports she has been compliant with her medications. The patient has been started on Plavix per the ER physician. Patient has an ALLERGY listed to aspirin. When asking the patient what her ALLERGY is to aspirin, she is is unable to tell me what the ALLERGY is but states she was told by a physician in the past that she has never to take aspirin again EKG reveals sinus mechanism with PACs with no signs of acute ischemia Chest xray mild cardiomegaly. No acute lung disease. Heart appears slightly increased compared to old exam. CT brain: Negative for acute process CT angios head and neck: Negative CT angiogram of the brain. Minimal plaque at the right carotid artery bifurcation. No evidence of hemodynamic stenosis. Laboratory data: WBC 6.9. Hemoglobin 13.7. Platelet count 171. Sodium 132. Potassium 4.0. BUN 19. Creatinine 0.76. Troponin 0.012. 0.029. 0.047. Current home cardiac medications include amlodipine 10 mg daily, simvastatin 20 mg daily, Benzapril 20 mg daily Most recent echocardiogram obtained in November 2017 revealing ejection fraction 55- 60%. Mild mitral regurgitation. Mild tricuspid regurgitation. Patient underwent Lexiscan stress test in November 2017 revealing mild dyskinesia of the cardiac apex with no definite stress-induced ischemia. Normal ejection fraction. 02/07/2021 Patient examined this morning at the bedside. Patient denies chest pain or pressure. Patient denies shortness of breath. She denies any weakness of her extremities. Speech is clear. Echocardiogram completed revealed ejection fraction 55-60%. Mild mitral regurgitation. Mild tricuspid regurgitation. Mild pulmonary hypertension. Telemetry reveals sinus bradycardia. 02/08/2021 Patient examined this morning at the bedside. Patient denies chest pain or pressure. Denies shortness of breath. Patient has had no further weakness in any of her extremities. Her speech is clear. Telemetry reveals sinus bradycardia. No pauses greater than 3 seconds noted on telemetry. PHYSICAL EXAM: VITAL SIGNS: Reviewed. GENERAL: Well-developed in no acute distress. HEENT: Head is normocephalic. Pupils are equal, round. Sclerae anicteric. Mucous membranes of the mouth are moist. Neck supple. No JVD or thyromegaly LUNGS: Respirations even and unlabored. Lungs essentially clear to auscultation bilaterally. HEART: Regular rate and rhythm. S1 and S2 heard. ABDOMEN: Soft. Nondistended. Nontender. EXTREMITIES: Normal range of motion. No clubbing or cyanosis. Peripheral pulses intact. No lower extremity edema NEUROLOGIC: Awake and alert. Oriented x 3. ASSESSMENT: Right-sided weakness, possible TIA Abnormal troponin, not suggestive of acute coronary syndrome, may be secondary to TIA Hypertension, uncontrolled on admission Hyperlipidemia PLAN: Continue current cardiac medications Neurology following. Continue Plavix and Lipitor. Patient is ALLERGIC to aspirin Patient is stable for discharge today from a cardiac standpoint Patient to follow-up outpatient with Dr. Morin Nurse practitioner note has been reviewed by physician. Signing provider agrees with the documented findings, assessment, and plan of care. Objective - Vital Signs Vital signs: Vital Signs Temp 98 F 02/08/21 11:32 Pulse 51 L 02/08/21 11:32 Resp 16 02/08/21 11:32 BP 131/64 02/08/21 11:32 Pulse Ox 98 02/08/21 11:32 Intake & Output 02/07/21 02/08/21 02/08/21 18:59 06:59 18:59 Intake Total 100 0 Balance 100 0 Weight 67.2 kg Intake: Oral 100 0 Other: Voiding Method Toilet Toilet Toilet # Voids 3 1 - Labs CBC & Chem 7: 02/06/21 00:18 02/06/21 00:18
[2021-02-08 11:58] LABS: Glucose,Whole Blood 108 mg/dL (75-99)
--- NOTE | 2021-03-02 13:37 | P.PN ---
Subjective Progress Note Date: 02/07/21 Principal diagnosis: Right-sided weakness likely due to TIA. resolved. Patient is a 75-year-old male with a known history of hypertension, hyperlipidemia, seizure disorder, hypothyroidism, GERD, anxiety/depression presents to ER with complaints of right arm and leg weakness and tingling sensation.Patient says that at around 10:45 PM, she got up and tried to go to the bathroom her right leg went to sleep and could not move and later could not move right arm. Her speech was mumbled and slurred. EMS was called and patient was brought to the hospital. Symptoms gradually getting better after coming to ER. Patient says that she felt dizzy about 2 weeks ago. No other complaints of chest pain or shortness of breath. No fever no chills. Denied any history of irregular heart beat. No nausea vomiting or abdominal pain or diarrhea. On admission blood pressure 182/78 pulse is 6660 temporary benefit pulse ox 99% on room air Chest x-ray showed mild cardiomegaly. No acute lung bases. Heart appears slightly increased compared to old exam. Next and CT head showednegative intracranial process. CT angiogram of the head and neck showed minimal plague in the right carotid artery bifurcation. No evidence of hemodynamically significant stenosis. EKG showed sinus rhythm with premature atrial complexes. Laboratory data showed sodium 132 potassium 4.0 BUN 19 and creatinine 0.76 Troponin 0.012, 0.0-9 and 0.047 02/07/21 Patient is currently sitting in the recliner. No complaints of chest pain or shortness of breath. No headache or dizziness or lightheadedness. No slurred speech. Neurological status is back to baseline. Patient had neurological work-up including 2D echocardiogram, CTA head and neck was done with showed no evidence of hemodynamically significant stenosis. 2D echocardiogram showed no evidence of PFO or any embolic source. Patient was seen by cardiology and neurology. Continue with Plavix and statins. Patient is allergic to aspirin. Current medications reviewed Objective - Vital Signs Vital signs: Vital Signs Temp 96.4 F L 02/07/21 15:01 Pulse 48 L 02/07/21 15:01 Resp 18 02/07/21 15:01 BP 148/67 02/07/21 15:01 Pulse Ox 99 02/07/21 15:01 Intake & Output 02/06/21 02/07/21 02/07/21 18:59 06:59 18:59 Intake Total 480 100 Balance 480 100 Weight 66.678 kg 66.6 kg Intake: Oral 480 100 Other: Voiding Method Toilet Toilet # Voids 3 1 3 - Exam PHYSICAL EXAMINATION: Patient is lying in the bed comfortably, no acute distress, awake alert and oriented.. HEENT: Normocephalic. Neck is supple. Pupils reactive. Nostrils clear. Oral cavity is moist. Neck reveals no JVD, carotid bruits, or thyromegaly. CHEST EXAMINATION: Trachea is central. Symmetrical expansion. Lung roberto clear to auscultation and percussion. CARDIAC: Normal S1, S2 with no gallops. No murmurs ABDOMEN: Soft. Bowel sounds normal. No organomegaly. No abdominal bruits. Extremities: reveal no edema. No clubbing or cyanosis Neurologically awake, alert, oriented x3 with well-coordinated movements. No f ocal deficits noted Skin: No rash or skin lesions. Psychiatric: Coperative. Nonsuicidal Musculoskeletal: No joint swelling or deformity. Normal range of motion. - Labs CBC & Chem 7: 02/06/21 00:18 02/06/21 00:18 Assessment and Plan Assessment: Right-sided weakness likely due to TIA. resolved. Mildly elevated troponin level. unlikely ACS Uncontrolled hypertension Hyperlipidemia Seizure disorder Hypothyroidism GERD Activities as depression DVT prophylaxis with heparin subcu Plan: Patient be continued on telemetry monitoring. Continue with home blood pressure medications including amlodipine, lisinopril and titrate as needed. Patient is ALLERGIC to aspirin. Continue with Plavix ans statins,. GI and DVT prophylaxis. Patient was seen by neurology and cardiology. 2D echocardiogram was done. Stroke work-up negative 2D echo and CTA head and neck was done. PT OT will be consulted and possible discharge in the next 24 hours.
--- NOTE | 2021-03-02 13:40 | P.DS ---
Providers Date of admission: 02/06/21 10:31 Expected date of discharge: 02/08/21 Attending physician: Guillaume Ortiz Consults: 02/06/21 01:46 Consult Physician Routine Consulting Provider: Astrid Funes Consult Reason/Comments: TIA Do you want consulting provider notified?: Yes 02/06/21 10:10 Consult Physician Routine Consulting Provider: Floyd Morin Consult Reason/Comments: Elevated troponin Do you want consulting provider notified?: Yes Primary care physician: Stated None Hospital Course: Discharge diagnosis Right-sided weakness likely due to TIA. resolved. Mildly elevated troponin level. unlikely ACS Uncontrolled hypertension Hyperlipidemia Seizure disorder Hypothyroidism GERD Activities as depression DVT prophylaxis with heparin subcu Hospital course Patient is a 75-year-old male with a known history of hypertension, hyperlipidemia, seizure disorder, hypothyroidism, GERD, anxiety/depression presents to ER with complaints of right arm and leg weakness and tingling sensation.Patient says that at around 10:45 PM, she got up and tried to go to the bathroom her right leg went to sleep and could not move and later could not move right arm. Her speech was mumbled and slurred. EMS was called and patient was brought to the hospital. Symptoms gradually getting better after coming to ER. Patient says that she felt dizzy about 2 weeks ago. No other complaints of chest pain or shortness of breath. No fever no chills. Denied any history of irregular heart beat. No nausea vomiting or abdominal pain or diarrhea. On admission blood pressure 182/78 pulse is 6660 temporary benefit pulse ox 99% on room air Chest x-ray showed mild cardiomegaly. No acute lung bases. Heart appears slightly increased compared to old exam. Next and CT head showednegative intracranial process. CT angiogram of the head and neck showed minimal plague in the right carotid artery bifurcation. No evidence of hemodynamically significant stenosis. EKG showed sinus rhythm with premature atrial complexes. Laboratory data showed sodium 132 potassium 4.0 BUN 19 and creatinine 0.76 Troponin 0.012, 0.0-9 and 0.047 02/07/21 Patient is currently sitting in the recliner. No complaints of chest pain or shortness of breath. No headache or dizziness or lightheadedness. No slurred speech. Neurological status is back to baseline. Patient had neurological work-up including 2D echocardiogram, CTA head and neck was done with showed no evidence of hemodynamically significant stenosis. 2D echocardiogram showed no evidence of PFO or any embolic source. Patient was seen by cardiology and neurology. Continue with Plavix and statins. Patient is allergic to aspirin. 02/08/21 Patient is currently resting in the bed comfortably. Denies any complaints of weakness in her right side extremities. No slurred speech or headache or visual disturbance. No other acute overnight issues. Blood pressure is better controlled now. 2D echocardiogram showed ejection fraction 55 to 60% and mild MR and mild TR and mild pulmonary hypertension. Telemetry showed sinus bradycardia. No pauses were noted. Patient is cleared from neurology and cardiology standpoint. Patient is being discharged home. Continue Plavix and statins. Patient is allergic to aspirin. PHYSICAL EXAMINATION: Patient is lying in the bed comfortably, no acute distress, awake alert and oriented.. HEENT: Normocephalic. Neck is supple. Pupils reactive. Nostrils clear. Oral cavity is moist. Neck reveals no JVD, carotid bruits, or thyromegaly. CHEST EXAMINATION: Trachea is central. Symmetrical expansion. Lung roberto clear to auscultation and percussion. CARDIAC: Normal S1, S2 with no gallops. No murmurs ABDOMEN: Soft. Bowel sounds normal. No organomegaly. No abdominal bruits. Extremities: reveal no edema. No clubbing or cyanosis Neurologically awake, alert, oriented x3 with well-coordinated movements. No focal deficits noted Skin: No rash or skin lesions. Psychiatric: Coperative. Nonsuicidal Musculoskeletal: No joint swelling or deformity. Normal range of motion. Vital signs: Vital Signs Temp 98 F 02/08/21 11:32 Pulse 51 L 02/08/21 11:32 Resp 16 02/08/21 11:32 BP 131/64 02/08/21 11:32 Pulse Ox 98 02/08/21 11:32 Intake & Output 02/07/21 02/08/21 02/08/21 18:59 06:59 18:59 Intake Total 100 0 Balance 100 0 Weight 67.2 kg Intake: Oral 100 0 Other: Voiding Method Toilet Toilet Toilet # Voids 3 1 Patient Condition at Discharge: Good Plan - Discharge Summary Discharge Rx Participant: No New Discharge Prescriptions: New RX: Atorvastatin [Lipitor] 40 mg PO HS #30 tab RX: Clopidogrel [Plavix] 75 mg PO DAILY #30 tab Continue RX: Levothyroxine Sodium [Synthroid] 75 mcg PO DAILY RX: Cholecalciferol [Vitamin D3 (25 Mcg = 1000 Iu)] 50 mcg PO BID RX: Benazepril HCl 20 mg PO DAILY RX: Famotidine [Pepcid] 20 mg PO BID #40 tablet RX: Calcium Carbonate [Calcium] 600 mg PO BID RX: Carboxymethylcellulose Sodium [Refresh Tears] 1 drop BOTH EYES BID RX: amLODIPine [Norvasc] 10 mg PO DAILY RX: PHENobarbital 60 mg PO HS Discontinued RX: Simvastatin [Zocor] 20 mg PO HS Discharge Medication List RX: Benazepril HCl 20 mg PO DAILY 02/24/14 [History] RX: Cholecalciferol [Vitamin D3 (25 Mcg = 1000 Iu)] 50 mcg PO BID 02/24/14 [History] RX: Levothyroxine Sodium [Synthroid] 75 mcg PO DAILY 02/24/14 [History] RX: Famotidine [Pepcid] 20 mg PO BID #40 tablet 06/11/14 [Rx] RX: Calcium Carbonate [Calcium] 600 mg PO BID 05/01/17 [History] RX: Carboxymethylcellulose Sodium [Refresh Tears] 1 drop BOTH EYES BID 06/06/18 [History] RX: amLODIPine [Norvasc] 10 mg PO DAILY 07/30/18 [History] RX: PHENobarbital 60 mg PO HS 12/04/20 [History] RX: Atorvastatin [Lipitor] 40 mg PO HS #30 tab 02/08/21 [Rx] RX: Clopidogrel [Plavix] 75 mg PO DAILY #30 tab 02/08/21 [Rx] Follow up Appointment(s)/Referral(s): None,Stated [Primary Care Provider] - 1-2 days Floyd Morin MD [STAFF PHYSICIAN] - 1 Week Discharge Disposition: HOME SELF-CARE
== END 2021-02-08 16:21 | disposition home or self-care (01) | DRG 69 ==
LOC: EC 00:08 → 3SCARD 01:49 → OBSVTOIN 10:31
PROVIDERS: ADMIT Hospitalist; ATTEND Hospitalist
DX: G45.9 Transient cerebral ischemic attack, unspecified (principal); G81.91 Hemiplegia, unspecified affecting right dominant side; I27.20 Pulmonary hypertension, unspecified; G40.909 Epilepsy, unspecified, not intractable, without status epilepticus; R47.81 Slurred speech; R26.2 Difficulty in walking, not elsewhere classified; I10 Essential (primary) hypertension; R77.8 Other specified abnormalities of plasma proteins; I08.1 Rheumatic disorders of both mitral and tricuspid valves; E03.9 Hypothyroidism, unspecified; I49.1 Atrial premature depolarization; E78.5 Hyperlipidemia, unspecified; K21.9 Gastro-esophageal reflux disease without esophagitis; Z87.19 Personal history of other diseases of the digestive system; Z79.890 Hormone replacement therapy; Z79.899 Other long term (current) drug therapy; Z90.49 Acquired absence of other specified parts of digestive tract; Z87.39 Personal history of other diseases of the musculoskeletal system and connective tissue; Z86.59 Personal history of other mental and behavioral disorders; Z98.890 Other specified postprocedural states; Z88.6 Allergy status to analgesic agent; Z88.1 Allergy status to other antibiotic agents; Z88.5 Allergy status to narcotic agent; Z88.2 Allergy status to sulfonamides; Z88.8 Allergy status to other drugs, medicaments and biological substances; Z80.9 Family history of malignant neoplasm, unspecified; Z82.49 Family history of ischemic heart disease and other diseases of the circulatory system
CPT/HCPCS: 36415; 70450; 70496; 70498; 71045; 80053; 80061; 83036; 84443; 84484; 85025; 85610; 85730; 93005; 93306; 94760; 99285

== ENCOUNTER 2021-05-14 18:42 | Emergency (ER) | payer MEDICARE, OTHER ==
[2021-05-14 20:32] VITALS: BP 175/76; PULSE 61; RESP 22; TEMP 97.1
[2021-05-14 21:13] LABS: Appearance,Urine Clear (Clear); Bilirubin,Urine Negative (Negative); Blood,Urine Negative (Negative); Color,Urine Light Yellow; Glucose,Urine (UA) Negative (Negative); Ketones,Urine Negative (Negative); Leukocyte Esterase,Urine Negative (Negative); Nitrite,Urine Negative (Negative); PH, Urine 7.5 (5.0-8.0); Protein,Urine Negative (Negative); Specific Gravity,Urine 1.005 (1.001-1.035); Urobilinogen,Urine <2.0 mg/dL (<2.0)
--- NOTE | 2021-05-15 01:24 | ED ---
Female Urogenital HPI - General Chief complaint: Urogenital Stated complaint: Frequent Urination Time Seen by Provider: 05/15/21 00:58 Source: patient, RN notes reviewed, old records reviewed Mode of arrival: ambulatory Limitations: no limitations - History of Present Illness Initial comments: This is a 76-year-old female to the emergency department for evaluation of dysuria burning with urination painful urinations. No other complaints was given coronavirus vaccination booster yesterday. No shortness of breath fevers no abdominal pain no nausea no vomiting no other complaints MD Complaint: dysuria, pelvic pain -: hour(s) Location: suprapubic Severity: moderate Severity scale (1-10): 4 Quality: sharp Consistency: intermittent Improves with: none Worsens with: urination Patient : No Associated Symptoms: dysuria - Related Data Home Medications Medication Instructions Recorded Confirmed Benazepril HCl 20 mg PO DAILY 02/24/14 02/06/21 Cholecalciferol [Vitamin D3 (25 50 mcg PO BID 02/24/14 02/06/21 Mcg = 1000 Iu)] Levothyroxine Sodium [Synthroid] 75 mcg PO DAILY 02/24/14 02/06/21 Calcium Carbonate [Calcium] 600 mg PO BID 05/01/17 02/06/21 Carboxymethylcellulose Sodium 1 drop BOTH EYES BID 06/06/18 02/06/21 [Refresh Tears] amLODIPine [Norvasc] 10 mg PO DAILY 07/30/18 02/06/21 PHENobarbital 60 mg PO HS 12/04/20 02/06/21 Previous Rx's Medication Instructions Recorded Famotidine [Pepcid] 20 mg PO BID #40 tablet 06/11/14 Atorvastatin [Lipitor] 40 mg PO HS #30 tab 02/08/21 Clopidogrel [Plavix] 75 mg PO DAILY #30 tab 02/08/21 Cephalexin [Keflex] 500 mg PO Q6HR #20 cap 05/15/21 Allergies Allergy/AdvReac Type Severity Reaction Status Date / Time aspirin Allergy Unknown Verified 05/14/21 20:32 fexofenadine HCl Allergy Nausea & Verified 05/14/21 20:32 [From Little] Vomiting & Diarrhea Hydantoins Allergy Unknown Verified 05/14/21 20:32 nitrofurantoin Allergy Rash/Hives Verified 05/14/21 20:32 [From Macrobid] phenytoin sodium Allergy Rash/Hives Verified 05/14/21 20:32 [From Dilantin] sulfamethoxazole Allergy Rash/Hives Verified 05/14/21 20:32 [From Bactrim] tetracycline Allergy Unknown Verified 05/14/21 20:32 trimethoprim Allergy Rash/Hives Verified 05/14/21 20:32 acetaminophen AdvReac Diarrhea Verified 05/14/21 20:32 [From Coricidin] amoxicillin [Amoxicillin] AdvReac Nausea & Verified 05/14/21 20:32 Vomiting & Diarrhea chlorpheniramine maleate AdvReac Diarrhea Verified 05/14/21 20:32 [From Coricidin] codeine AdvReac DIZZINESS Verified 05/14/21 20:32 levofloxacin [From Levaquin] AdvReac Diarrhea Verified 05/14/21 20:32 phenylpropanolamine HCl AdvReac Diarrhea Verified 05/14/21 20:32 [From Coricidin] prednisone AdvReac Nausea & Verified 05/14/21 20:32 Vomiting & Diarrhea propoxyphene HCl AdvReac DIZZINESS Verified 05/14/21 20:32 [From Darvon] narcotic Allergy LETHARGIC/H Uncoded 05/14/21 20:32 EADACHES Review of Systems ROS Statement: Those systems with pertinent positive or pertinent negative responses have been documented in the HPI. ROS Other: All systems not noted in ROS Statement are negative. Past Medical History Past Medical History: GERD/Reflux, Hyperlipidemia, Hypertension, Seizure Disorder, Thyroid Disorder Additional Past Medical History / Comment(s): hx. colon polyps, >40 yrs. had seizures History of Any Multi-Drug Resistant Organisms: None Reported Past Surgical History: Cholecystectomy, Orthopedic Surgery Additional Past Surgical History / Comment(s): colonoscopy, hand surg. Past Anesthesia/Blood Transfusion Reactions: No Reported Reaction Past Psychological History: Anxiety, Depression Smoking Status: Never smoker Past Alcohol Use History: None Reported Past Drug Use History: None Reported - Past Family History Mother Family Medical History: Cancer Father History Unknown: Yes Sister(s) Family Medical History: Cancer Brother(s) History Unknown: Yes Son(s) Family Medical History: No Reported History Daughter(s) Additional Family Medical History / Comment(s): went without oxygen at General Exam Limitations: no limitations General appearance: alert, in no apparent distress Head exam: Present: atraumatic, normocephalic, normal inspection Eye exam: Present: normal appearance, PERRL, EOMI. Absent: scleral icterus, conjunctival injection, periorbital swelling ENT exam: Present: normal exam, mucous membranes moist Neck exam: Present: normal inspection. Absent: tenderness, meningismus, lymphadenopathy Respiratory exam: Present: normal lung sounds bilaterally. Absent: respiratory distress, wheezes, rales, rhonchi, stridor Cardiovascular Exam: Present: regular rate, normal rhythm, normal heart sounds. Absent: systolic murmur, diastolic murmur, rubs, gallop, clicks GI/Abdominal exam: Present: soft, normal bowel sounds. Absent: distended, tenderness, guarding, rebound, rigid Extremities exam: Present: normal inspection, full ROM, normal capillary refill. Absent: tenderness, pedal edema, joint swelling, calf tenderness Back exam: Present: normal inspection Neurological exam: Present: alert, oriented X3, CN II-XII intact Psychiatric exam: Present: normal affect, normal mood Skin exam: Present: warm, dry, intact, normal color. Absent: rash Course Vital Signs 05/14/21 20:28 Temperature 97.1 F L Pulse Rate 61 Respiratory 22 Rate Blood Pressure 175/76 O2 Sat by Pulse 99 Oximetry - Reevaluation(s) Reevaluation #1: 05/15/21 01:40 Medical records reviewed Reevaluation #2: 05/15/21 01:40 Patient informed of results and questions answered Medical Decision Making - Medical Decision Making 76 female no distress burning with urination. Patient be treated for symptomatic urinary tract infection could be vaccine reaction but patient will be discharged home - Lab Data Lab Results 05/14/21 Range/Units 20:45 Urine Color Light Yellow Urine Appearance Clear (Clear) Urine pH 7.5 (5.0-8.0) Ur Specific [place] 1.005 (1.001-1.035) Urine Protein Negative (Negative) Urine Glucose (UA) Negative (Negative) Urine Ketones Negative (Negative) Urine Blood Negative (Negative) Urine Nitrite Negative (Negative) Urine Bilirubin Negative (Negative) Urine Urobilinogen <2.0 (<2.0) mg/dL Ur Leukocyte Esterase Negative (Negative) Disposition Clinical Impression: Urinary tract infection Disposition: HOME SELF-CARE Condition: Good Instructions (If sedation given, give patient instructions): Urinary Tract Infection in Women (ED) Prescriptions: Cephalexin [Keflex] 500 mg PO Q6HR #20 cap Is patient prescribed a controlled substance at d/c from ED?: No Referrals: Nish Trimble MD [Primary Care Provider] - 1-2 days
[2021-05-15] MEDS ORDERED: CEPHALEXIN 500MG STARTER PACK 4 CAP BTL PO STA (01:27)
[2021-05-15] MEDS ORDERED: CEPHALEXIN 500 MG CAP PO STA (01:27)
== END 2021-05-15 01:43 | disposition home or self-care (01) ==
LOC: EC 18:42
DX: N39.0 Urinary tract infection, site not specified (principal); K21.9 Gastro-esophageal reflux disease without esophagitis; E78.5 Hyperlipidemia, unspecified; I10 Essential (primary) hypertension; E07.9 Disorder of thyroid, unspecified; F41.9 Anxiety disorder, unspecified; F32.A Depression, unspecified; Z79.02 Long term (current) use of antithrombotics/antiplatelets; Z88.1 Allergy status to other antibiotic agents; Z88.2 Allergy status to sulfonamides; Z88.5 Allergy status to narcotic agent; Z86.010 Personal history of colon polyps; Z90.49 Acquired absence of other specified parts of digestive tract
CPT/HCPCS: 81003; 99284

== ENCOUNTER 2021-09-12 18:28 | Emergency (ER) | payer MEDICARE, OTHER ==
[2021-09-12 18:35] VITALS: TEMP 97
--- NOTE | 2021-09-12 19:42 | ED ---
General Adult HPI - General Chief complaint: Chest Pain Stated complaint: Phillip.Shoulder Pain Time Seen by Provider: 09/12/21 19:25 Source: patient, RN notes reviewed Mode of arrival: ambulatory Limitations: no limitations - History of Present Illness Initial comments: 76-year-old female presents to the emergency department for evaluation of bilateral shoulder pain that radiates to the upper mid back. Patient denies any injury or trauma. Pain is unaffected by movement, palpation, or breathing. States she is taking any antibiotic to treat a UTI, but did not take any medication to treat pain prior to arrival. Reports a history of cardiac stents. She denies fever, chills, numbness, tingling, weakness, chest pain, palpitations, shortness of breath, difficulty breathing, abdominal pain, nausea, vomiting, diarrhea, or dysuria. - Related Data Home Medications Medication Instructions Recorded Confirmed Benazepril HCl 20 mg PO W/BRKFST 02/24/14 09/12/21 Cholecalciferol [Vitamin D3 (25 50 mcg PO W/BRKFST 02/24/14 09/12/21 Mcg = 1000 Iu)] Levothyroxine Sodium [Synthroid] 75 mcg PO AC-BRKFST 02/24/14 09/12/21 Carboxymethylcellulose Sodium 1 drop BOTH EYES BID 06/06/18 09/12/21 [Refresh Tears] amLODIPine [Norvasc] 10 mg PO W/BRKFST 07/30/18 09/12/21 Calcium Citrate 600mg 1 tab PO BID-W/MEALS 09/12/21 09/12/21 Cephalexin [Keflex] 500 mg PO Q12H 09/12/21 09/12/21 Clopidogrel [Plavix] 75 mg PO W/SUPPER 09/12/21 09/12/21 Famotidine [Pepcid] 20 mg PO BID-W/MEALS 09/12/21 09/12/21 L.acidoph,Paracasei, B.lactis 1 cap PO DAILY 09/12/21 09/12/21 [Probiotic] PHENobarbitaL [PHENobarbital] 60 mg PO HS 09/12/21 09/12/21 Previous Rx's Medication Instructions Recorded Atorvastatin [Lipitor] 40 mg PO HS #30 tab 02/08/21 Allergies Allergy/AdvReac Type Severity Reaction Status Date / Time aspirin Allergy Unknown Verified 09/12/21 21:47 Hydantoins Allergy Unknown Verified 09/12/21 21:47 nitrofurantoin Allergy Rash/Hives Verified 09/12/21 21:47 [From Macrobid] & Joint Stiffness phenytoin sodium Allergy Rash/Hives Verified 09/12/21 21:47 [From Dilantin] sulfamethoxazole Allergy Rash/Hives Verified 09/12/21 21:47 [From Bactrim] trimethoprim Allergy Rash/Hives Verified 09/12/21 21:47 amoxicillin [Amoxicillin] AdvReac Nausea & Verified 09/12/21 21:47 Vomiting & Diarrhea & Headache chlorpheniramine maleate AdvReac Diarrhea & Verified 09/12/21 21:47 [From Coricidin] Dizzy codeine AdvReac DIZZINESS Verified 09/12/21 21:47 fexofenadine HCl AdvReac Nausea & Verified 09/12/21 21:47 [From Little] Vomiting & Diarrhea levofloxacin [From Levaquin] AdvReac Diarrhea Verified 09/12/21 21:47 phenylpropanolamine HCl AdvReac Diarrhea Verified 09/12/21 21:47 [From Coricidin] prednisone AdvReac Nausea & Verified 09/12/21 21:47 Vomiting & Diarrhea propoxyphene HCl AdvReac DIZZINESS Verified 09/12/21 21:47 [From Darvon] tetracycline AdvReac Told Verified 09/12/21 21:47 Causes Cancer narcotic AdvReac LETHARGIC/H Uncoded 09/12/21 21:47 EADACHES Review of Systems ROS Statement: Those systems with pertinent positive or pertinent negative responses have been documented in the HPI. ROS Other: All systems not noted in ROS Statement are negative. Past Medical History Past Medical History: GERD/Reflux, Hyperlipidemia, Hypertension, Seizure Disorder, Thyroid Disorder Additional Past Medical History / Comment(s): hx. colon polyps, >40 yrs. had seizures History of Any Multi-Drug Resistant Organisms: None Reported Past Surgical History: Cholecystectomy, Orthopedic Surgery Additional Past Surgical History / Comment(s): colonoscopy, hand surg. Past Anesthesia/Blood Transfusion Reactions: No Reported Reaction Past Psychological History: Anxiety, Depression Smoking Status: Never smoker Past Alcohol Use History: None Reported Past Drug Use History: None Reported - Past Family History Mother Family Medical History: Cancer Father History Unknown: Yes Sister(s) Family Medical History: Cancer Brother(s) History Unknown: Yes Son(s) Family Medical History: No Reported History Daughter(s) Additional Family Medical History / Comment(s): went without oxygen at General Exam Limitations: no limitations (Well-developed, well-nourished female in no acute distress. Initial temperature 97.0, pulse 60, respirations 18, blood pressure 180/65, pulse ox on 100% on room air.) General appearance: alert, in no apparent distress Neck exam: Present: normal inspection, full ROM. Absent: tenderness, meningismus, lymphadenopathy Respiratory exam: Present: normal lung sounds bilaterally. Absent: respiratory distress, wheezes, rales, rhonchi, stridor, chest wall tenderness Cardiovascular Exam: Present: regular rate, normal rhythm, normal heart sounds. Absent: systolic murmur, diastolic murmur, rubs, gallop, clicks GI/Abdominal exam: Present: soft, normal bowel sounds. Absent: distended, tenderness, guarding, rebound, rigid Extremities exam: Present: normal inspection, full ROM, normal capillary refill. Absent: tenderness, pedal edema, joint swelling, calf tenderness Right Shoulder Exam: Present: normal inspection, full ROM. Absent: tenderness, swelling, ecchymosis, deformity, erythema, tenderness over AC joint Upper Arm exam: Present: normal inspection, full ROM. Absent: tenderness, swelling Vascular: Present: normal capillary refill, radial pulse, brachial pulse. Absent: vascular compromise, Pallo Left Shoulder Exam: Present: normal inspection, full ROM. Absent: tenderness, swelling, deformity, erythema, tenderness over AC joint Upper Arm exam: Present: normal inspection, full ROM. Absent: tenderness, swelling Vascular: Present: normal capillary refill, radial pulse, brachial pulse. Absent: vascular compromise, Pallo Back exam: Present: normal inspection, full ROM, other (diffuse upper back pain upon between bilateral scapula). Absent: tenderness, CVA tenderness (R), CVA tenderness (L), muscle spasm, paraspinal tenderness, vertebral tenderness, rash noted Neurological exam: Present: alert, oriented X3, CN II-XII intact Psychiatric exam: Present: normal affect, normal mood Skin exam: Present: warm, dry, intact, normal color. Absent: rash Course Vital Signs 09/12/21 09/12/21 18:30 22:03 Temperature 97.0 F L Pulse Rate 60 57 L Respiratory 18 16 Rate Blood Pressure 180/65 170/63 O2 Sat by Pulse 100 98 Oximetry - Reevaluation(s) Reevaluation #1: 09/12/21 21:05 Upon reassessment, patient is moving freely and complains of mild discomfort in her upper back and shoulders. Denies any chest pain or shortness of breath at this time. Patient verbalizes readiness for discharge. Medical Decision Making - Medical Decision Making 76-year-old female with a past medical history of hypertension, hyperlipidemia, GERD, and current antibiotic therapy for UTI presents to the emergency department of bilateral shoulder pain that wraps around to the mid upper back. Upon exam, patient is well-appearing and in no acute distress. She is moving her extremities freely. She is not experiencing any chest pain or difficulty breathing. Vital signs are stable. Patient did not have a source of injury to which she attributed the onset of her discomfort. She was agreeable to a cardiac workup after discussing atypical presentation of cardiac findings in female patients. Patient's chest x-ray was unremarkable. EKG showed normal sinus rhythm with no ectopy. Laboratory studies were reviewed, troponin was negative, though patient did have mildly elevated liver enzymes for which she was encouraged to follow up with her PCP. Prior to departure, patient reported her pain had nearly resolved. Lidocaine patch was applied to her sore upper back. Patient was instructed to follow up with her PCP for a recheck in the next 24-48 hours. Return parameters were discussed in detail. Patient verbalizes understanding and agrees with this plan. Attending: Daniel. - Lab Data Result diagrams: 09/12/21 19:58 09/12/21 19:58 Lab Results 09/12/21 09/12/21 09/12/21 Range/Units 19:58 19:58 19:58 WBC 8.0 (3.8-10.6) k/uL RBC 4.14 (3.80-5.40) m/uL Hgb 13.5 (11.4-16.0) gm/dL Hct 40.8 (34.0-46.0) % MCV 98.4 (80.0-100.0) fL MCH 32.7 (25.0-35.0) pg MCHC 33.2 (31.0-37.0) g/dL RDW 13.9 (11.5-15.5) % Plt Count 211 (150-450) k/uL MPV 8.1 Neutrophils % 64 % Lymphocytes % 28 % Monocytes % 5 % Eosinophils % 1 % Basophils % 1 % Neutrophils # 5.1 (1.3-7.7) k/uL Lymphocytes # 2.2 (1.0-4.8) k/uL Monocytes # 0.4 (0-1.0) k/uL Eosinophils # 0.0 (0-0.7) k/uL Basophils # 0.1 (0-0.2) k/uL PT 10.5 (9.0-12.0) sec INR 1.0 (<1.2) APTT 22.2 (22.0-30.0) sec Sodium 138 (137-145) mmol/L Potassium 4.2 (3.5-5.1) mmol/L Chloride 101 (98-107) mmol/L Carbon Dioxide 28 (22-30) mmol/L Anion Gap 9 mmol/L BUN 24 H (7-17) mg/dL Creatinine 0.93 (0.52-1.04) mg/dL Est GFR (CKD-EPI)AfAm 70 (>60 ml/min/1.73 sqM) Est GFR (CKD-EPI)NonAf 61 (>60 ml/min/1.73 sqM) Glucose 125 H (74-99) mg/dL Calcium 9.2 (8.4-10.2) mg/dL Magnesium 2.1 (1.6-2.3) mg/dL Total Bilirubin 0.5 (0.2-1.3) mg/dL AST 69 H (14-36) U/L ALT 60 H (4-34) U/L Alkaline Phosphatase 149 H (38-126) U/L Troponin I (0.000-0.034) ng/mL Total Protein 8.5 H (6.3-8.2) g/dL Albumin 4.9 (3.5-5.0) g/dL 09/12/21 Range/Units 19:58 WBC (3.8-10.6) k/uL RBC (3.80-5.40) m/uL Hgb (11.4-16.0) gm/dL Hct (34.0-46.0) % MCV (80.0-100.0) fL MCH (25.0-35.0) pg MCHC (31.0-37.0) g/dL RDW (11.5-15.5) % Plt Count (150-450) k/uL MPV Neutrophils % % Lymphocytes % % Monocytes % % Eosinophils % % Basophils % % Neutrophils # (1.3-7.7) k/uL Lymphocytes # (1.0-4.8) k/uL Monocytes # (0-1.0) k/uL Eosinophils # (0-0.7) k/uL Basophils # (0-0.2) k/uL PT (9.0-12.0) sec INR (<1.2) APTT (22.0-30.0) sec Sodium (137-145) mmol/L Potassium (3.5-5.1) mmol/L Chloride (98-107) mmol/L Carbon Dioxide (22-30) mmol/L Anion Gap mmol/L BUN (7-17) mg/dL Creatinine (0.52-1.04) mg/dL Est GFR (CKD-EPI)AfAm (>60 ml/min/1.73 sqM) Est GFR (CKD-EPI)NonAf (>60 ml/min/1.73 sqM) Glucose (74-99) mg/dL Calcium (8.4-10.2) mg/dL Magnesium (1.6-2.3) mg/dL Total Bilirubin (0.2-1.3) mg/dL AST (14-36) U/L ALT (4-34) U/L Alkaline Phosphatase (38-126) U/L Troponin I <0.012 (0.000-0.034) ng/mL Total Protein (6.3-8.2) g/dL Albumin (3.5-5.0) g/dL - EKG Data EKG shows normal: sinus rhythm Rate: bradycardia EKG Comments: EKG was obtained at 1839 showing sinus bradycardia. Ventricular rate 55, MD interval 179, QRS duration 92, QT/QTc 437/425. Interpretation borderline ECG. - Radiology Data Radiology results: report reviewed, image reviewed Two-view chest x-ray was obtained. Report was reviewed in its entirety. Impression per Dr. Cope is no acute cardiopulmonary process. COPD changes. Disposition Clinical Impression: Upper back pain, Shoulder pain, bilateral, Elevated liver enzymes Disposition: HOME SELF-CARE Condition: Stable Instructions (If sedation given, give patient instructions): Arthralgia (ED) Additional Instructions: Gentle range of motion exercises both arms and shoulders. May take Tylenol if needed for pain. Apply heating pad on low setting to sore areas. Follow-up with your PCP for a recheck this week. Return to the emergency department with any new, worsening, or concerning symptoms. Is patient prescribed a controlled substance at d/c from ED?: No Referrals: Nish Trimble MD [Primary Care Provider] - 1-2 days Time of Disposition: 21:35
[2021-09-12 20:06] LABS: Basophils # (A) 0.1 k/uL (0-0.2); Basophils % (A) 1 %; Eosinophils % (A) 1 %; HCT 40.8 % (34.0-46.0); HGB 13.5 gm/dL (11.4-16.0); Lymphocytes # (A) 2.2 k/uL (1.0-4.8); Lymphocytes % (A) 28 %; MCH 32.7 pg (25.0-35.0); MCHC 33.2 g/dL (31.0-37.0); MCV 98.4 fL (80.0-100.0); Mean Platelet Volume 8.1; Monocytes # (A) 0.4 k/uL (0-1.0); Monocytes % (A) 5 %; Neutrophils # (A) 5.1 k/uL (1.3-7.7); Neutrophils % (A) 64 %; Platelet Count 211 k/uL (150-450); RBC 4.14 m/uL (3.80-5.40); RDW 13.9 % (11.5-15.5)
[2021-09-12 20:12] LABS: Partial Thromboplastin Time 22.2 sec (22.0-30.0); Prothrombin Time 10.5 sec (9.0-12.0)
--- NOTE | 2021-09-12 20:18 | XR ---
EXAMINATION TYPE: XR chest 2V DATE OF EXAM: 09/12/2021 8:05 PM COMPARISON:Chest radiographs from 02/06/2021 TECHNIQUE: XR chest 2V Frontal and lateral views of the chest. CLINICAL INDICATION:Female, 76 years old with history of Chest Pain; FINDINGS: Lungs/Pleura: There is flattening of the diaphragm with increased lucency of the lungs. No evidence o f pneumothorax, pleural effusion or focal consolidation. Pulmonary vascularity: Unremarkable. Heart/mediastinum: Cardiomediastinal silhouette is unremarkable. Musculoskeletal: No acute osseous pathology. IMPRESSION: 1. No acute cardiopulmonary disease process. 2. COPD changes.
[2021-09-12 20:32] LABS: Albumin 4.9 g/dL (3.5-5.0); Calcium 9.2 mg/dL (8.4-10.2); Magnesium 2.1 mg/dL (1.6-2.3); Potassium 4.2 mmol/L (3.5-5.1); Total Bilirubin 0.5 mg/dL (0.2-1.3); Total Protein 8.5 g/dL (6.3-8.2)
[2021-09-12] MEDS ORDERED: LIDOCAINE 5% PATCH TOPICAL STA (21:29)
[2021-09-12 22:05] VITALS: BP 170/63; PULSE 57; RESP 16
== END 2021-09-12 22:00 | disposition home or self-care (01) ==
LOC: EC 18:28
DX: M25.511 Pain in right shoulder (principal); M25.512 Pain in left shoulder; M54.6 Pain in thoracic spine; R74.01 Elevation of levels of liver transaminase levels; I10 Essential (primary) hypertension; K21.9 Gastro-esophageal reflux disease without esophagitis; E78.5 Hyperlipidemia, unspecified; G40.909 Epilepsy, unspecified, not intractable, without status epilepticus; F32.A Depression, unspecified; F41.9 Anxiety disorder, unspecified; Z79.899 Other long term (current) drug therapy
CPT/HCPCS: 36415; 71046; 80053; 83735; 84484; 85025; 85610; 85730; 93005; 99284

== ENCOUNTER 2023-03-30 19:13 | Emergency (ER) | payer MEDICARE, OTHER ==
--- NOTE | 2023-03-30 19:44 | ED ---
Abdominal Pain HPI - General Chief Complaint: Abdominal Pain Stated Complaint: Abd pain Time Seen by Provider: 03/30/23 19:41 Source: patient, RN notes reviewed Mode of arrival: ambulatory Limitations: no limitations - History of Present Illness Initial Comments: This is a 77 year old female who presents to the emergency department for abdominal pain. States that she had an [place] this morning, which she is not supposed to have, and later in the day had mashed potatoes. Shortly afterwards, she developed epigastric pain. The pain did radiate down towards her lower abdomen as well. She feels like she is full of gas. Reports a history of gastritis and diverticulitis. No longer has her gallbladder. She did end up passing gas and feels somewhat better right now, but is concerned that it could return. She was instructed to come to the emergency department for blood work and a CT scan. Denies any N/V. MD Complaint: abdominal pain Location: epigastric - Related Data Home Medications Medication Instructions Recorded Confirmed Benazepril HCl 20 mg PO W/BRKFST 02/24/14 09/12/21 Cholecalciferol [Vitamin D3 (25 50 mcg PO W/BRKFST 02/24/14 09/12/21 Mcg = 1000 Iu)] Levothyroxine Sodium [Synthroid] 75 mcg PO AC-BRKFST 02/24/14 09/12/21 Carboxymethylcellulose Sodium 1 drop BOTH EYES BID 06/06/18 09/12/21 [Refresh Tears] amLODIPine [Norvasc] 10 mg PO W/BRKFST 07/30/18 09/12/21 Calcium Citrate 600mg 1 tab PO BID-W/MEALS 09/12/21 09/12/21 Cephalexin [Keflex] 500 mg PO Q12H 09/12/21 09/12/21 Clopidogrel [Plavix] 75 mg PO W/SUPPER 09/12/21 09/12/21 Famotidine [Pepcid] 20 mg PO BID-W/MEALS 09/12/21 09/12/21 L.acidoph,Paracasei, B.lactis 1 cap PO DAILY 09/12/21 09/12/21 [Probiotic] PHENobarbitaL [PHENobarbital] 60 mg PO HS 09/12/21 09/12/21 Previous Rx's Medication Instructions Recorded Atorvastatin [Lipitor] 40 mg PO HS #30 tab 02/08/21 Allergies Allergy/AdvReac Type Severity Reaction Status Date / Time aspirin Allergy Unknown Verified 03/30/23 19:42 Hydantoins Allergy Unknown Verified 03/30/23 19:42 nitrofurantoin Allergy Rash/Hives Verified 03/30/23 19:42 [From Macrobid] & Joint Stiffness phenytoin sodium Allergy Rash/Hives Verified 03/30/23 19:42 [From Dilantin] sulfamethoxazole Allergy Rash/Hives Verified 03/30/23 19:42 [From Bactrim] trimethoprim Allergy Rash/Hives Verified 03/30/23 19:42 amoxicillin [Amoxicillin] AdvReac Nausea & Verified 03/30/23 19:42 Vomiting & Diarrhea & Headache chlorpheniramine maleate AdvReac Diarrhea & Verified 03/30/23 19:42 [From Coricidin] Dizzy codeine AdvReac DIZZINESS Verified 03/30/23 19:42 fexofenadine HCl AdvReac Nausea & Verified 03/30/23 19:42 [From Little] Vomiting & Diarrhea levofloxacin [From Levaquin] AdvReac Diarrhea Verified 03/30/23 19:42 phenylpropanolamine HCl AdvReac Diarrhea Verified 03/30/23 19:42 [From Coricidin] prednisone AdvReac Nausea & Verified 03/30/23 19:42 Vomiting & Diarrhea propoxyphene HCl AdvReac DIZZINESS Verified 03/30/23 19:42 [From Darvon] tetracycline AdvReac Told Verified 03/30/23 19:42 Causes Cancer narcotic AdvReac LETHARGIC/H Uncoded 03/30/23 19:42 DAVID Review of Systems ROS Statement: Those systems with pertinent positive or pertinent negative responses have been documented in the HPI. ROS Other: All systems not noted in ROS Statement are negative. Past Medical History Past Medical History: GERD/Reflux, Hyperlipidemia, Hypertension, Seizure Disorder, Thyroid Disorder Additional Past Medical History / Comment(s): hx. colon polyps, >40 yrs. had seizures History of Any Multi-Drug Resistant Organisms: None Reported Past Surgical History: Cholecystectomy, Orthopedic Surgery Additional Past Surgical History / Comment(s): colonoscopy, hand surg. Past Anesthesia/Blood Transfusion Reactions: No Reported Reaction Past Psychological History: Anxiety, Depression Smoking Status: Never smoker Past Alcohol Use History: None Reported Past Drug Use History: None Reported - Past Family History Mother Family Medical History: Cancer Father History Unknown: Yes Sister(s) Family Medical History: Cancer Brother(s) History Unknown: Yes Son(s) Family Medical History: No Reported History Daughter(s) Additional Family Medical History / Comment(s): went without oxygen at General Exam - General Exam Comments Initial Comments: Visual Physical Exam Vital signs reviewed General: Well-appearing, nontoxic, no acute distress. Head: Normocephalic, atraumatic Eyes: PERRLA, EOMI ENT: Airway patent Chest: Nonlabored breathing Skin: No visual rash, normal skin tone Neuro: Alert and oriented 3 Musculoskeletal: No gross abnormalities I performed the QuickNote portion of this chart. Signed Kamla Joya PA-C. Limitations: no limitations General appearance: alert, in no apparent distress Head exam: Present: atraumatic, normocephalic, normal inspection Respiratory exam: Present: normal lung sounds bilaterally. Absent: respiratory distress, wheezes, rales, rhonchi, stridor Cardiovascular Exam: Present: regular rate, normal rhythm, normal heart sounds. Absent: systolic murmur, diastolic murmur, rubs, gallop, clicks GI/Abdominal exam: Present: soft, normal bowel sounds. Absent: distended, tenderness, guarding, rebound, rigid Neurological exam: Present: alert, oriented X3, CN II-XII intact Psychiatric exam: Present: normal affect, normal mood Skin exam: Present: warm, dry, intact, normal color. Absent: rash Course Vital Signs 03/30/23 03/30/23 03/31/23 19:42 22:30 01:22 Temperature 97.6 F 98.2 F Pulse Rate 76 80 73 Respiratory 18 18 16 Rate Blood Pressure 180/77 170/75 166/80 O2 Sat by Pulse 98 92 L 97 Oximetry Medical Decision Making - Medical Decision Making This is a 77-year-old female who presents to the emergency department for abdominal pain. Was pt. sent in by a medical professional or institution? @ -No Did you speak to anyone other than the patient for history? @ -No Did you review nursing and triage notes? @ -Yes, and I agree, it is accurate with regards to the patient's symptoms. Were old charts reviewed? @ -No Differential Diagnosis? @ -Differential Abdominal Pain Women: Appendicitis, Cholecystitis, diverticulosis, ischemic bowel, pancreatitis, hepatitis, UTI, gastroenteritis, AAA, incarcerated hernia, bowel obstruction, constipation, inflammatory bowel, hepatitis, peptic ulcer disease, splenic infarction, perforated viscus, vulvitis, ovarian torsion, PID, kidney stone, placenta abruption, this is not meant to be an all-inclusive list EKG interpreted by me (3pts min.)? @ -EKG interpreted by me demonstrating the following: Sinus rhythm. Ventr icular rate 83 beats per minute, QRS duration 92 ms, QTC 417 ms. X-rays interpreted by me (1pt min.)? @ -Not obtained CT interpreted by me (1pt min.)? @ -Computed tomography scan of the abdomen and pelvis obtained. My inter pretation identifies no evidence of bowel wall thickening or free air. U/S interpreted by me (1pt. min.)? @ -Not obtained What testing was considered but not performed? (CT, X-rays, U/S, labs)? Why? @ -None What meds were considered but not given? Why? @ -None Did you discuss the management of the patient with other professionals? @ -No Did you reconcile home meds? @ -No Was smoking cessation discussed for >3mins.? @ -No Was critical care preformed (if so, how long)? @ -No Were there social determinants of health that impacted care today? How? (Homelessness, low income, unemployed, alcoholism, drug addiction, transportation, low edu. Level, literacy, decrease access to med. care, usp, rehab)? @ -No Was there de-escalation of care discussed even if they declined? (Discuss DNR or withdrawal of care, Hospice)? @ -No What co-morbidities impacted this encounter? (DM, HTN, Smoking, COPD, CAD, Cancer, CVA, Hep., AIDS, mental health diagnosis, sleep apnea, morbid obesity)? @ -GERD, diverticulosis Was patient admitted / discharged? @ -Discharged. Lab work obtained revealing leukocytosis and no other actionable findings. After the patient was brought back to the examination room, she states that she continued to pass more gas and the pain was essentially gone. However, given the symptoms that she had earlier and with the leukocytosis, computed tomography scan of the abdomen and pelvis was subsequently obtained. This revealed nonspecific findings, including a nodular appearance to the liver suggestive of cirrhosis and a right ovarian cyst. However there were no acute findings to account for the patient's symptoms. After the computed tomography scan returned, the differential on the CBC returned revealing that the leukocytosis was associated with elevated lymphocytes. Discussed with the patient that the cause of this is not clear. Advised that she'll need to follow up with her PCP for reevaluation of current symptoms as well as repeat blood work with regards to the CBC. Patient discharged home in stable condition. Advised avoiding foods that trigger gastritis or similar symptoms and continuing with [id number] antacids as needed. Undiagnosed new problem with uncertain prognosis? @ -None Drug Therapy requiring intensive monitoring for toxicity (Heparin, Nitro, Insulin, Cardizem)? @ -None Were any procedures done? @ -None Diagnosis/symptom? @ -Epigastric pain, leukocytosis Acute, or Chronic, or Acute on Chronic? @ -Acute Uncomplicated (without systemic symptoms) or Complicated (systemic symptoms)? @ -Uncomplicated Side effects of treatment? @ -None Exacerbation, Progression, or Severe Exacerbation] @ -Not applicable Poses a threat to life or bodily function? @ -No Return precautions reviewed in depth, the patient is instructed to return to the emergency department with any new, worsening, or concerning symptoms. Patient verbalized understanding. This case was discussed in detail with the attending ED physician, Dr. Bashir. Presentation, findings, and treatment plan discussed in detail as well. - Lab Data Result diagrams: 03/30/23 21:09 03/30/23 21:09 Lab Results 03/30/23 03/30/23 03/30/23 Range/Units 21:09 21:09 21:09 WBC 19.8 H (3.8-10.6) k/uL RBC 4.16 (3.80-5.40) m/uL Hgb 13.4 (11.4-16.0) gm/dL Hct 40.4 (34.0-46.0) % MCV 97.0 (80.0-100.0) fL MCH 32.2 (25.0-35.0) pg MCHC 33.2 (31.0-37.0) g/dL RDW 13.7 (11.5-15.5) % Plt Count 206 (150-450) k/uL MPV 7.7 Neutrophils % (Manual) 31 % Lymphocytes % (Manual) 67 % Monocytes % (Manual) 2 % Neutrophils # (Manual) 6.14 (1.3-7.7) k/uL Lymphocytes # (Manual) 13.27 H (1.0-4.8) k/uL Monocytes # (Manual) 0.40 (0-1.0) k/uL Nucleated RBCs 0 (0-0) /100 WBC Manual Slide Review Performed RBC Morphology Normal Sodium 140 (137-145) mmol/L Potassium 4.3 (3.5-5.1) mmol/L Chloride 101 (98-107) mmol/L Carbon Dioxide 29 (22-30) mmol/L Anion Gap 10 mmol/L BUN 27 H (7-17) mg/dL Creatinine 0.78 (0.52-1.04) mg/dL Est GFR (CKD-EPI)AfAm 86 (>60 ml/min/1.73 sqM) Est GFR (CKD-EPI)NonAf 74 (>60 ml/min/1.73 sqM) Glucose 147 H (74-99) mg/dL Plasma Lactic Acid Aditya 1.1 (0.7-2.0) mmol/L Calcium 9.7 (8.4-10.2) mg/dL Total Bilirubin 0.4 (0.2-1.3) mg/dL AST 44 H (14-36) U/L ALT 36 H (4-34) U/L Alkaline Phosphatase 128 H (38-126) U/L Total Protein 8.3 H (6.3-8.2) g/dL Albumin 4.7 (3.5-5.0) g/dL Amylase 61 (30-110) U/L Lipase 118 (23-300) U/L Urine Color Urine Appearance (Clear) Urine pH (5.0-8.0) Ur Specific [place] (1.001-1.035) Urine Protein (Negative) Urine Glucose (UA) (Negative) Urine Ketones (Negative) Urine Blood (Negative) Urine Nitrite (Negative) Urine Bilirubin (Negative) Urine Urobilinogen (<2.0) mg/dL Ur Leukocyte Esterase (Negative) Urine RBC (0-5) /hpf Urine WBC (0-5) /hpf Ur Squamous Epith Cells (0-4) /hpf Amorphous Sediment (None) /hpf Urine Bacteria (None) /hpf 03/30/23 Range/Units 22:27 WBC (3.8-10.6) k/uL RBC (3.80-5.40) m/uL Hgb (11.4-16.0) gm/dL Hct (34.0-46.0) % MCV (80.0-100.0) fL MCH (25.0-35.0) pg MCHC (31.0-37.0) g/dL RDW (11.5-15.5) % Plt Count (150-450) k/uL MPV Neutrophils % (Manual) % Lymphocytes % (Manual) % Monocytes % (Manual) % Neutrophils # (Manual) (1.3-7.7) k/uL Lymphocytes # (Manual) (1.0-4.8) k/uL Monocytes # (Manual) (0-1.0) k/uL Nucleated RBCs (0-0) /100 WBC Manual Slide Review RBC Morphology Sodium (137-145) mmol/L Potassium (3.5-5.1) mmol/L Chloride (98-107) mmol/L Carbon Dioxide (22-30) mmol/L Anion Gap mmol/L BUN (7-17) mg/dL Creatinine (0.52-1.04) mg/dL Est GFR (CKD-EPI)AfAm (>60 ml/min/1.73 sqM) Est GFR (CKD-EPI)NonAf (>60 ml/min/1.73 sqM) Glucose (74-99) mg/dL Plasma Lactic Acid Aditya (0.7-2.0) mmol/L Calcium (8.4-10.2) mg/dL Total Bilirubin (0.2-1.3) mg/dL AST (14-36) U/L ALT (4-34) U/L Alkaline Phosphatase (38-126) U/L Total Protein (6.3-8.2) g/dL Albumin (3.5-5.0) g/dL Amylase (30-110) U/L Lipase (23-300) U/L Urine Color Colorless Urine Appearance Clear (Clear) Urine pH 7.0 (5.0-8.0) Ur Specific [place] 1.008 (1.001-1.035) Urine Protein Negative (Negative) Urine Glucose (UA) Negative (Negative) Urine Ketones Negative (Negative) Urine Blood Negative (Negative) Urine Nitrite Negative (Negative) Urine Bilirubin Negative (Negative) Urine Urobilinogen <2.0 (<2.0) mg/dL Ur Leukocyte Esterase Moderate H (Negative) Urine RBC 1 (0-5) /hpf Urine WBC 16 H (0-5) /hpf Ur Squamous Epith Cells <1 (0-4) /hpf Amorphous Sediment Rare H (None) /hpf Urine Bacteria Occasional H (None) /hpf - Radiology Data Radiology results: report reviewed, image reviewed Disposition Clinical Impression: Epigastric pain, Leukocytosis Disposition: HOME SELF-CARE Instructions (If sedation given, give patient instructions): Epigastric Pain (ED) Additional Instructions: Return to the emergency department with any new, worsening, or concerning symptoms. You can continue taking Tums or other [id number] antacid medi cation for management of your symptoms. Follow up with your primary care provider in 1-2 days. Is patient prescribed a controlled substance at d/c from ED?: No Referrals: Nish Trimble MD [Primary Care Provider] - 1-2 days
[2023-03-30 21:26] LABS: HCT 40.4 % (34.0-46.0); HGB 13.4 gm/dL (11.4-16.0); MCH 32.2 pg (25.0-35.0); MCHC 33.2 g/dL (31.0-37.0); Mean Platelet Volume 7.7; Platelet Count 206 k/uL (150-450); RBC 4.16 m/uL (3.80-5.40); RDW 13.7 % (11.5-15.5); WBC 19.8 k/uL (3.8-10.6)
[2023-03-30 21:43] LABS: ALT 36 U/L (4-34); AST 44 U/L (14-36); African American GFR (CKD) 86 (>60 ml/min/1.73 sqM); Albumin 4.7 g/dL (3.5-5.0); Alkaline Phosphatase 128 U/L (38-126); Amylase 61 U/L (30-110); Anion Gap 10 mmol/L; Blood Urea Nitrogen 27 mg/dL (7-17); Calcium 9.7 mg/dL (8.4-10.2); Carbon Dioxide 29 mmol/L (22-30); Chloride 101 mmol/L (98-107); Glucose 147 mg/dL (74-99); Lipase 118 U/L (23-300); Non-African American GFR(CKD) 74 (>60 ml/min/1.73 sqM); Potassium 4.3 mmol/L (3.5-5.1); Sodium 140 mmol/L (137-145); Total Bilirubin 0.4 mg/dL (0.2-1.3); Total Protein 8.3 g/dL (6.3-8.2)
[2023-03-30 22:54] LABS: Amorphous Sediment,Urine Rare /hpf; Appearance,Urine Clear (Clear); Bacteria,Urine Occasional /hpf; Bilirubin,Urine Negative (Negative); Blood,Urine Negative (Negative); Color,Urine Colorless; Glucose,Urine (UA) Negative (Negative); Ketones,Urine Negative (Negative); Leukocyte Esterase,Urine Moderate (Negative); Nitrite,Urine Negative (Negative); Protein,Urine Negative (Negative); RBC,Urine 1 /hpf (0-5); Specific Gravity,Urine 1.008 (1.001-1.035); Squamous Epithelial Cell,Urine <1 /hpf (0-4); Urobilinogen,Urine <2.0 mg/dL (<2.0); WBC,Urine 16 /hpf (0-5)
[2023-03-30 23:26] LABS: Lymphocytes # (M) 13.27 k/uL (1.0-4.8); Neutrophils # (M) 6.14 k/uL (1.3-7.7); Neutrophils % (M) 31 %; Nucleated Red Blood Cells 0 /100 WBC (0-0); RBC Morphology Normal; Total Cells Counted 100
--- NOTE | 2023-03-31 00:26 | CT ---
EXAM: CT Abdomen and Pelvis With Intravenous Contrast CLINICAL HISTORY: ITS.REASON CT Reason: Abdominal pain, acute, nonlocalized TECHNIQUE: Axial computed tomography images of the abdomen and pelvis with intravenous contrast. CTDI is 15.9 mGy and DLP is 737.6 mGy-cm. This CT exam was performed using one or more of the following dose reduction techniques: automated exposure control, adjustment of the mA and/or kV according to patient size, and/or use of iterative reconstruction technique. COMPARISON: 12/11/2020 FINDINGS: ABDOMEN: Liver: Nodular contour to the liver suggestive of cirrhosis. Gallbladder and bile ducts: Cholecystectomy. Pancreas: Unremarkable. Spleen: Unremarkable. Adrenals: Unremarkable. Kidneys and ureters: Unremarkable. No obstructing stones. No hydronephrosis. Stomach and bowel: Colonic diverticulosis without diverticulitis. PELVIS: Appendix: No findings to suggest acute appendicitis. Bladder: Unremarkable. Reproductive: Right ovarian cyst measuring 3.5 cm. Normal appearance of uterus and left ovary. ABDOMEN and PELVIS: Intraperitoneal space: Unremarkable. No free air. No significant fluid collection. Bones/joints: No acute fracture. Soft tissues: Unremarkable. Vasculature: Unremarkable. Lymph nodes: Unremarkable. IMPRESSION: 1. Nodular contour to the liver suggestive of cirrhosis. 2. Colonic diverticulosis without diverticulitis. 3. Right ovarian cyst measuring 3.5 cm.
[2023-03-31] MEDS ORDERED: FAMOTIDINE 20 MG TAB PO STA (01:10)
[2023-03-31] MEDS ORDERED: CALCIUM CARBONATE 500 MG CHEWABLE PO ONE (01:10)
[2023-03-31 01:35] VITALS: BP 166/80; PULSE 73; RESP 16; TEMP 98.2
== END 2023-03-31 01:23 | disposition home or self-care (01) ==
LOC: EC 19:13
DX: D72.829 Elevated white blood cell count, unspecified (principal); N83.201 Unspecified ovarian cyst, right side; K57.30 Diverticulosis of large intestine without perforation or abscess without bleeding; I10 Essential (primary) hypertension; E07.9 Disorder of thyroid, unspecified; F41.9 Anxiety disorder, unspecified; F32.A Depression, unspecified; Z88.2 Allergy status to sulfonamides; Z88.6 Allergy status to analgesic agent; Z88.8 Allergy status to other drugs, medicaments and biological substances; Z88.5 Allergy status to narcotic agent; Z88.0 Allergy status to penicillin; Z79.890 Hormone replacement therapy; Z79.899 Other long term (current) drug therapy
CPT/HCPCS: 99284 ×2; 36415; 93005; 80053; 82150; 83605; 83690; 85025; 81001; 74177; Q9967

== ENCOUNTER 2024-04-22 18:12 | Emergency (ER) | payer MEDICARE ==
[2024-04-22 18:55] VITALS: PULSE 71
--- NOTE | 2024-04-22 19:02 | CT ---
EXAMINATION TYPE: CT brain rebekah coto con DATE OF EXAM: 04/22/2024 6:49 PM COMPARISON: None. CLINICAL INDICATION: Female, 78 years old with history of Fall with head injury on Plavix, Fall on th inners, denies LOC, no mental status change TECHNIQUE: CT of the brain is performed utilizing 3 mm thick sections through the posterior fossa and 3 mm thick sections through the remaining calvarium. Study is performed within 24 hours of arrival to the hospital. Contrast used: mL of , (none if empty) CT DLP: 1320.6 mGycm, Automated exposure control for dose reduction was used. FINDINGS: No abnormal hyperdensity is present to suggest an acute intracranial hemorrhage. No mass lesion is evident. No acute infarcts are evident. Ventricles and sulci are appropriate for the patient age. Paranasal sinuses and mastoid air cells within the [id number] are clear. IMPRESSIONS: 1. No acute intracranial process. Follow-up MRI can be performed as clinically indicated. 2. No acute intracranial hemorrhage CT cervical spine. COMPARISON: None TECHNIQUE: CT of the cervical spine is performed in the axial plane at 2 mm thick sections. Reconstr ucted images in the coronal, and sagittal plane are reviewed on the computer. FINDINGS: No acute fractures are evident. Vertebral body alignment is normal. Anterior disc space narrowing is present C3-4 C4-5. Vertebral body heights are preserved. Anterior vertebral body spurring is present C4-T1. No spinal canal stenosis is evident. No neural foraminal stenosis is evident. IMPRESSION: 1. Normal CT cervical spine. [facility], , 04/22/2024 6:59 PM
--- NOTE | 2024-04-22 19:28 | ED ---
Head Injury HPI - General Chief complaint: Head Injury Stated complaint: Fall on thinners-head injury Time Seen by Provider: 04/22/24 18:25 Source: patient Mode of arrival: ambulatory Limitations: no limitations - History of Present Illness Initial comments: 78-year-old female presenting with chief complaint of head injury. Patient was on a stool when she was reaching beneath her causing her to fall over and hit her head on the corner of a door. No loss of consciousness. Patient is on Plavix. She has a very small abrasion to the left temporal region with no bleeding. She does have a mild amount of dizziness and states "I feel like I am drunk". She was initially having some knee pain which has since resolved. No other injuries. No nausea, vomiting, vision or hearing changes, numbness, tingling, weakness - Related Data Home Medications Medication Instructions Recorded Confirmed Benazepril HCl 20 mg PO W/BRKFST 02/24/14 09/12/21 Cholecalciferol [Vitamin D3 (25 50 mcg PO W/BRKFST 02/24/14 09/12/21 Mcg = 1000 Iu)] Levothyroxine Sodium [Synthroid] 75 mcg PO AC-BRKFST 02/24/14 09/12/21 Carboxymethylcellulose Sodium 1 drop BOTH EYES BID 06/06/18 09/12/21 [Refresh Tears] amLODIPine [Norvasc] 10 mg PO W/BRKFST 07/30/18 09/12/21 Calcium Citrate 600mg 1 tab PO BID-W/MEALS 09/12/21 09/12/21 Cephalexin [Keflex] 500 mg PO Q12H 09/12/21 09/12/21 Clopidogrel [Plavix] 75 mg PO W/SUPPER 09/12/21 09/12/21 Famotidine [Pepcid] 20 mg PO BID-W/MEALS 09/12/21 09/12/21 L.acidoph,Paracasei, B.lactis 1 cap PO DAILY 09/12/21 09/12/21 [Probiotic] PHENobarbitaL [PHENobarbital] 60 mg PO HS 09/12/21 09/12/21 Previous Rx's Medication Instructions Recorded Atorvastatin [Lipitor] 40 mg PO HS #30 tab 02/08/21 Allergies/Adverse reactions: Allergies Allergy/AdvReac Type Severity Reaction Status Date / Time aspirin Allergy Unknown Verified 03/30/23 19:42 Hydantoins Allergy Unknown Verified 03/30/23 19:42 nitrofurantoin Allergy Rash/Hives Verified 03/30/23 19:42 [From Macrobid] & Joint Stiffness phenytoin sodium Allergy Rash/Hives Verified 03/30/23 19:42 [From Dilantin] sulfamethoxazole Allergy Rash/Hives Verified 03/30/23 19:42 [From Bactrim] trimethoprim Allergy Rash/Hives Verified 03/30/23 19:42 amoxicillin [Amoxicillin] AdvReac Nausea & Verified 03/30/23 19:42 Vomiting & Diarrhea & Headache chlorpheniramine maleate AdvReac Diarrhea & Verified 03/30/23 19:42 [From Coricidin] Dizzy codeine AdvReac DIZZINESS Verified 03/30/23 19:42 fexofenadine HCl AdvReac Nausea & Verified 03/30/23 19:42 [From Little] Vomiting & Diarrhea levofloxacin [From Levaquin] AdvReac Diarrhea Verified 03/30/23 19:42 phenylpropanolamine HCl AdvReac Diarrhea Verified 03/30/23 19:42 [From Coricidin] prednisone AdvReac Nausea & Verified 03/30/23 19:42 Vomiting & Diarrhea propoxyphene HCl AdvReac DIZZINESS Verified 03/30/23 19:42 [From Darvon] tetracycline AdvReac Told Verified 03/30/23 19:42 Causes Cancer narcotic AdvReac LETHARGIC/H Uncoded 03/30/23 19:42 EADACHES Review of Systems ROS Statement: Those systems with pertinent positive or pertinent negative responses have been documented in the HPI. ROS Other: All systems not noted in ROS Statement are negative. Past Medical History Past Medical History: CVA/TIA, GERD/Reflux, Hyperlipidemia, Hypertension, Seizure Disorder, Thyroid Disorder Additional Past Medical History / Comment(s): hx. colon polyps, >40 yrs. had seizures History of Any Multi-Drug Resistant Organisms: None Reported Past Surgical History: Cholecystectomy, Orthopedic Surgery Additional Past Surgical History / Comment(s): colonoscopy, hand surg. Past Anesthesia/Blood Transfusion Reactions: No Reported Reaction Past Psychological History: Anxiety, Depression Smoking Status: Never smoker Past Alcohol Use History: None Reported Past Drug Use History: None Reported - Past Family History Mother Family Medical History: Cancer Father History Unknown: Yes Sister(s) Family Medical History: Cancer Brother(s) History Unknown: Yes Son(s) Family Medical History: No Reported History Daughter(s) Additional Family Medical History / Comment(s): went without oxygen at General Exam Limitations: no limitations General appearance: alert, in no apparent distress Head exam: Present: normocephalic Expanded Head exam: Present: abrasion (Very small abrasion over the left temporal region) Eye exam: Present: normal appearance, PERRL, EOMI Pupils: Present: normal accommodation Neck exam: Present: normal inspection. Absent: meningismus Respiratory exam: Present: normal lung sounds bilaterally. Absent: respiratory distress, wheezes, rales, rhonchi, stridor Cardiovascular Exam: Present: regular rate, normal rhythm, normal heart sounds. Absent: systolic murmur, diastolic murmur, rubs, gallop, clicks GI/Abdominal exam: Present: soft. Absent: distended, tenderness, guarding, rebound, rigid Extremities exam: Present: normal inspection, full ROM Neurological exam: Present: alert, oriented X3 Expanded Patient oriented to: Present: person, place, time Speech: Present: fluid speech Cranial nerves: EOM's Intact: Normal Eye Response: (4) open spontaneously Motor Response: (6) obeys commands Verbal Response: (5) oriented [place] Total: 15 Psychiatric exam: Present: normal affect, normal mood Skin exam: Present: warm, dry Course Vital Signs 04/22/24 04/22/24 04/22/24 18:17 18:54 20:06 Temperature 97.3 F L 98.1 F 97.4 F L Pulse Rate 75 71 71 Respiratory 16 18 16 Rate Blood Pressure 158/71 150/77 148/78 O2 Sat by Pulse 98 96 95 Oximetry Medical Decision Making - Medical Decision Making Was pt. sent in by a medical professional or institution (, PA, FINANCIAL MARKET DEALER, urgent care, hospital, or jail...) When possible be specific @ -No Did you speak to anyone other than the patient for history (EMS, parent, family, police, friend...)? What history was obtained from this source @ -Friend at bedside Did you review nursing and triage notes (agree or disagree)? Why? @ -I reviewed and agree with nursing and triage notes Were old charts reviewed (outside hosp., previous admission, EMS record, old EKG, old radiological studies, urgent care reports/EKG's, jail records)? Report findings @ -No old charts were reviewed Differential Diagnosis (chest pain, altered mental status, abdominal pain women, abdominal pain men, vaginal bleeding, weakness, fever, dyspnea, syncope, headache, dizziness, GI bleed, back pain, seizure, CVA, palpatations, mental health, musculoskeletal)? @ -Differential includes uncomplicated head injury, concussion, fracture, hemorrhage, this is not an all-inclusive list EKG interpreted by me (3pts min.). @ -As above X-rays interpreted by me (1pt min.). @ -None done CT interpreted by me (1pt min.). @ -CT shows no acute intracranial process. Follow-up MRI can be performed as clinically indicated. No acute intracranial hemorrhage. Normal cervical spine CT U/S interpreted by me (1pt. min.). @ -None done What testing was considered but not performed or refused? (CT, X-rays, U/S, labs)? Why? @ -None What meds were considered but not given or refused? Why? @ -None Did you discuss the management of the patient with other professionals (professionals i.e. , PA, FINANCIAL MARKET DEALER, lab, RT, psych nurse, professor of social work, claims technician, teacher, corporate compliance officer, wrapper caser)? Give summary @ -No Was smoking cessation discussed for >3mins.? @ -No Was critical care preformed (if so, how long)? @ -No Were there social determinants of health that impacted care today? How? (Homelessness, low income, unemployed, alcoholism, drug addiction, transportation, low edu. Level, literacy, decrease access to med. care, [facility], rehab)? @ -No Was there de-escalation of care discussed even if they declined (Discuss DNR or withdrawal of care, Hospice)? DNR status @ -No What co-morbidities impacted this encounter? (DM, HTN, Smoking, COPD, CAD, Cancer, CVA, ARF, Chemo, Hep., AIDS, mental health diagnosis, sleep apnea, morbid obesity)? @ -None Was patient admitted / discharged? Hospital course, mention meds given and route, prescriptions, significant lab abnormalities, going to OR and other perti nent info. @ -78-year-old female presenting with chief complaint of head injury after falling off of the stool. No loss of consciousness. She is on Plavix. Code coag was called. CT is negative for acute intracranial process or cervical spine fracture. Patient is educated on today's findings. She is resting comfortably showing no acute signs of distress. Educated on return parameters. Discharged. Follow-up with PCP. Report back to ER with any new or worsening symptoms. Discussed return parameters and answered all questions. Patient conveyed verbal understanding and agreed to the plan. I discussed this case in detail with my attending Dr. Ramos Undiagnosed new problem with uncertain prognosis? @ -No Drug Therapy requiring intensive monitoring for toxicity (Heparin, Nitro, Insulin, Cardizem)? @ -No Were any procedures done? @ -No Diagnosis/symptom? @ -Head injury Acute, or Chronic, or Acute on Chronic? @ -Acute Uncomplicated (without systemic symptoms) or Complicated (systemic symptoms)? @ -Uncomplicated Side effects of treatment? @ -No Exacerbation, Progression, or Severe Exacerbation? @ -No Poses a threat to life or bodily function? How? (Chest pain, USA, MS, pneumonia, PE, COPD, DKA, ARF, appy, cholecystitis, CVA, Diverticulitis, Homicidal, Suicidal, threat to staff... and all critical care pts) @ -Low likelihood Disposition Clinical Impression: Head injury Disposition: HOME SELF-CARE Condition: Good Instructions (If sedation given, give patient instructions): Head Injury (ED) Additional Instructions: Follow-up with PCP. Report back to ER with any new or worsening symptoms. Is patient prescribed a controlled substance at d/c from ED?: No Referrals: Nish Trimble MD [Primary Care Provider] - 1-2 days Time of Disposition: 19:27
[2024-04-22 20:07] VITALS: BP 148/78; RESP 16; TEMP 97.4
== END 2024-04-22 20:08 | disposition home or self-care (01) ==
LOC: EC 18:12
DX: S09.90XA Unspecified injury of head, initial encounter (principal); Z88.0 Allergy status to penicillin; Z88.2 Allergy status to sulfonamides; Z88.5 Allergy status to narcotic agent; Z88.8 Allergy status to other drugs, medicaments and biological substances; Z88.1 Allergy status to other antibiotic agents; W01.198A Fall on same level from slipping, tripping and stumbling with subsequent striking against other object, initial encounter
CPT/HCPCS: 70450; 72125; 99283